=== PATIENT | male | born 1950 | race Caucasian/White ===

== ENCOUNTER 2025-02-26 14:57 | Outpatient (REF) | payer MEDICARE, SELFPAY ==
--- NOTE | ~2025-02-26 | XR_ITS ---
EXAMINATION: XR CHEST CLINICAL INFORMATION: chest pain, bradycardia COMPARISON: July 23, 2015 TECHNIQUE: 2 views of the chest were obtained. FINDINGS: No consolidation, pleural effusion or pneumothorax. New right-sided Port-A-Cath placed via right internal jugular vein and vein at the SVC brachiocephalic trunk junction. Cardiomediastinal silhouette size is normal. Calcified plaque thoracic aortic arch. Multilevel thoracic and upper lumbar spondylosis. Osteopenia versus osteoporosis. S-shaped curvature of the thoracic spine. XR/XR chest 2V IMPRESSION: New right-sided Port-A-Cath placement at the SVC/innominate junction without pneumothorax. Stable chest. Electronically signed by: Johnny Christy MD 02/26/2025 04:01 PM EDT
--- NOTE | 2025-02-26 15:07 | ECG_ITS ---
Test Reason : CP Blood Pressure : */* mmHG Vent. Rate : 80 BPM Atrial Rate : 80 BPM P-R Int : 254 ms QRS Dur : 106 ms QT Int : 386 ms P-R-T Axes : 31 -24 55 degrees QTcB Int : 445 ms Sinus rhythm with 1st degree A-V block with occasional Premature ventricular complexes Incomplete right bundle branch block Borderline ECG No previous ECGs available Referred By: Kb Reese Electronically Signed By: KEL CASILLAS MD
--- OUTSIDE RECORDS SUMMARY | 2025-02-26 16:03 | XMS_ITS | Patient Health Record ---
Author Organization Kb Reese III, MD Address [address] [place] [address] Care Team Providers Care Hand Trucker Name Role Phone Kb Reese Primary Care Provider [phone] Allergies Allergen (clinical drug ingredient) Drug/Non Drug [...] 0.2 - 1.3 BLD Negative Negative - Reason For Referral No Information Medications Medication SIG (Take, Route, Frequency, Duration) Notes Start Date End Date Status amLODIPine Besylate 5 MG TAKE 1 TABLET B Y MOUTH EVERY DAY Active Immunizations Vaccine Route Administration Date Status Comme nts Influenza IM Intramuscular 11/23/2012 Administered Influenza IM Intramuscular 08/16/2013 Administered Influenza IM Intramuscular 07/18/2014 Administered Influenza Unknown 08/28/2015 Administered Influenza IM Intramuscular 07/30/2016 Administered Tetanus and Diphtheria Toxoids Adsorbed IM Intramuscular 07/30/2016 Administered Hep A Unknown 07/18/2018 Administered Hepatitis B (20 and more) Unknown 04/30/2022 Administer ed PCV20 Unknown 09/06/2022 Administered COMIRNATY Pfizer-BioNTech Unknown 01/08/2022 Administer ed MMR Unknown 02/22/2023 Administered FLuzone HD PF Unknown 07/25/2023 Administered SHINGRIX Unknown 01/26/2022 Administered Hep A Unknown 02/20/2019 Administered COVID PFIZER Unknown 06/11/2021 Administered PPV 23 Unknown 02/22/2023 Administered Meningococcal (MCV4) Unknown 05/27/2022 Administered Tdap Unknown 09/06/2022 Administered COMIRNATY Pfizer-BioNTech Unknown 07/25/2023 Administer ed SHINGRIX Unknown 11/24/2021 Administered Hepatitis A (adult) Unknown 08/18/2018 Administered COVID PFIZER Unknown 07/02/2021 Administered Influenza, quad Unknown 07/25/2023 Administered Flu-IIv3 Unknown 07/10/2024 Administered Fluzone High-Dose (HD-IIV3) Unknown 06/30/2018 Administered Comirnaty Pfizer COVID-19 12+ Unknown 07/25/2023 Administered Flu-IIv3 Unknown 07/06/2019 Administered COVID Pfizer Bivalent Unknown 09/15/2022 Administered Comirnaty Pfizer COVID-19 12+ Unknown 07/10/2024 Administered Social History Tobacco Use: Social History Observation [...] Never (0 point) Points 2 Interpretation Negative Problems Problem Type SNOMED Code ICD Code Onset Dates Problem Status W/U Status Risk Notes Problem 5738833 Former smoker (Z87.891) Active confirmed He is highly motivated not to smoke. We have discussed a plan for prevention of relapse in times of stress or illness. Problem 022579035 Overweight (E66.3) Active confirmed His weight is stable and his body mass index is 28. We discussed diet and nutrition today. We made a plan to lose weight at a rate of one half of a pound per week. He had no peripheral edema today. Problem 84090218 Age-related nuclear cataract, right eye (H25.11) Active confirmed The cataract surgery was successful in his vision is much improved. Problem 213055084 Radiculopathy, lumbar region (M54.16) Active confirmed His back pain is only minimal and occasional. He is avoiding heavy lifting. Problem 135583318 Nocturia (R35.1) Active confirmed Problem 33988313 Essential hypertension (I10) Active confirmed His blood pressure is normal today. No change in his treatment is needed. I discussed ways to reduce his systolic blood pressure, regular exercise, sodium restriction and weight loss. Problem 132000652 Erectile dysfunction (N52.9) Active confirmed This problem has been addressed and has been resolved. Problem 797771871 Rosacea (L71.9) Active confirmed The rosacea is minimal at this time and does not require any additional treatment. Problem 66712551 Other and unspecified hyperlipidemia (E78.5) Active confirmed The current fasting lipid profile shows his lipids to be well controlled and low risk. Current therapy was continued without change. Problem 64185406 Colonic polyp (K63.5) Active confirmed He had a colonoscopy yesterday that is reported as normal. 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 Problem 27864461 Chronic leukopenia (D72.819) Active confirmed His white blood cell count is 4400 with a normal differential. No infections have occurred. Observation will continue. Problem History of lymphoma (639741975) History of lymphoma (Z85.79) Active confirmed He remains in clinical remission after his bone marrow transplant. Surveillance will continue at short intervals. 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 Vital Signs Heart Rate 85 /min 02/26/2025 Temperature 97.3 degrees Fahrenheit 02/26/2025 Blood pressure diastolic 85 mm Hg 02/26/2025 Height 72 in 02/26/2025 Blood pressure systolic 145 mm Hg 02/26/2025 Weight 209 lbs 02/26/2025 BMI 28.34 kg/m2 02/26/2025 Encounters Encounter Location Date Provider Diagnosis Kb Reese III, MD [address] [place] [address] [place] [address] 02/26/2025 Kb Reese Bradycardia, unspeci fied R00.1 and Chest pain R07.9 Kb Reese III, MD [address] [place] [address] [place] [address] 06/20/2024 Kb Reese Overweight E66.3 ; Radiculopathy, lumbar region M54.16 ; Other and unspecified hyperlipidemia E78.5 ; Former smoker Z87.891 and Malignant lymphoma of testis C85.99 Kb Reese III, MD [address] [place] [address] [place] [address] 10/22/2024 Kb Reese Other and unspecifie d hyperlipidemia E78.5 ; Radiculopathy, lumbar region M54.16 ; Overweight E66.3 ; Former smoker Z87.891 ; Autologous bone marrow transplantation status Z94.81 and History of lymphoma Z85.79 Kb Reese III, MD [address] [place] [address] [place] [address] 02/20/2025 Kb Reese Overweight E66.3 ; Malignant lymphoma of testis C85.99 ; Rosacea L71.9 ; Radiculopathy, lumbar region M54.16 ; Former smoker Z87.891 ; Autologous bone marrow transplantation status Z94.81 ; Chronic leukopenia D72.819 and Encounter for screening colonoscopy Z12.11 Assessments Encounter Date Diagnosis (ICD Code) Assessment Notes Treat ment Notes Treatment Clinical Notes 02/26/2025 Bradycardia, unspecified (ICD-10 - R00.1) 06/20/2024 Overweight (ICD-10 - E66.3) He is very slightly overweight. We discussed diet and nutrition. He will stabilize his weight at this level and then attempt to lose several pounds. 06/20/2024 Radiculopathy, lumba r region (ICD-10 - M54.16) His back pain is only minimal and occasional. He is avoiding heavy lifting. 10/22/2024 Radiculopathy, lumba r region (ICD-10 - M54.16) His back pain is only minimal and occasional. He is avoiding heavy lifting. 10/22/2024 Other and unspecifie d hyperlipidemia (ICD-10 - E78.5) The current fasting lipid profile shows his lipids to be well controlled and low risk. Current therapy was continued without change. 02/20/2025 Overweight (ICD-10 - E66.3) His weight [...] examination or upon review blood work. 02/26/2025 Chest pain (ICD-10 - R07.9) 06/20/2024 Other and unspecifie d hyperlipidemia (ICD-10 - E78.5) The current fasting lipid profile shows his lipids to be well controlled and low risk. Current therapy was continued without change. 10/22/2024 Overweight (ICD-10 - E66.3) He is very slightly overweight. We discussed diet and nutrition. He will stabilize his weight at this level and then attempt to lose several pounds. 02/20/2025 Rosacea (ICD-10 - L71.9) The rosacea is minimal at this time and does not require any additional treatment. 06/20/2024 Former smoker (ICD-1 0 - Z87.891) He is highly motivated not to smoke. We have discussed a plan for prevention of relapse in times of stress or illness. 10/22/2024 Former smoker (ICD-1 0 - Z87.891) He is highly motivated not to smoke. We have discussed a plan for prevention of relapse in times of stress or illness. 02/20/2025 Radiculopathy, lumba r region (ICD-10 - M54.16) His back pain is only minimal and occasional. He is avoiding heavy lifting. 06/20/2024 Malignant lymphoma o f testis (ICD-10 - C85.99) Observation will continue. There is no sign of recurrence or a new primary.. 10/22/2024 Autologous bone beba ow transplantation status (ICD-10 - Z94.81) He remains in remission at this time. 02/20/2025 Former smoker (ICD-1 0 - Z87.891) He is highly motivated not to smoke. We have discussed a plan for prevention of relapse in times of stress or illness. 10/22/2024 History of lymphoma (ICD-10 - Z85.79) He remains in clinical remission after his bone marrow transplant. Surveillance will continue at short intervals. 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 02/20/2025 Chronic leukopenia (ICD-10 - D72.819) His white blood cell count is 4400 with a normal differential. No infections have occurred. Observation will continue. 02/20/2025 Encounter for screening colonoscopy (ICD-10 - Z12.11) He is due for colonoscopy and was referred for the same. Plan Of Treatment Pending Test Test Name Order Date PROFILE, FASTING (COMPREHENSIVE METABOLI C) 06/20/2024 PROFILE, FASTING (COMPREHENSIVE METABOLI C) 02/15/2024 PROFILE, FASTING (COMPREHENSIVE METABOLI C) 09/20/2022 PROFILE, FASTING (COMPREHENSIVE METABOLI C) 02/20/2025 PROFILE, FASTING (COMPREHENSIVE METABOLI C) 07/26/2023 PROFILE, FASTING (COMPREHENSIVE METABOLI C) 10/22/2024 PROFILE, RANDOM (COMPREHENSIVE METABOLIC ) 10/07/2021 PROFILE, RANDOM (COMPREHENSIVE METABOLIC ) 04/14/2020 PROFILE, RANDOM (COMPREHENSIVE METABOLIC ) 11/01/2023 PROFILE, RANDOM (COMPREHENSIVE METABOLIC ) 06/15/2022 MAGNESIUM 09/20/2022 LIPID PANEL 07/26/2023 LIPID PANEL 09/20/2022 LDH 06/15/2022 LDH 10/22/2024 LDH 10/07/2021 LDH 04/14/2020 LDH 02/15/2024 LDH 11/01/2023 VITAMIN B12 AND FOLATE 09/20/2022 PSA, TOTAL 02/20/2025 PSA, TOTAL 06/15/2022 PSA, TOTAL 07/26/2023 PSA, TOTAL 06/20/2024 CBC w DIFF 11/01/2023 CBC w DIFF 02/20/2025 CBC w DIFF 09/20/2022 CBC w DIFF 06/15/2022 CBC w DIFF 07/26/2023 CBC w DIFF 10/07/2021 CBC w DIFF 04/14/2020 CBC w DIFF 02/15/2024 SED RATE (ESR) 11/01/2023 SED RATE (ESR) 10/22/2024 SED RATE (ESR) 09/20/2022 SED RATE (ESR) 10/07/2021 SED RATE (ESR) 04/14/2020 CT ABD & PELVIS WITH CONTRAST 05/24/2018 CT LUMBAR SPINE NO CONTRAST 03/27/2014 PETCT WHOLE BODY 10/06/2020 XR CHEST 2 VIEW PA & LAT 02/26/2025 XR HAND LT 08/16/2018 XR HAND RT 08/16/2018 XR SHOULDER RT 2 VIEWS 08/16/2018 Echocardiogram 10/06/2020 VITAMIN D 25-OH TOTAL 09/20/2022 CBC WITH AUTO DIFF 10/22/2024 CBC WITH AUTO DIFF 06/20/2024 Lipid Panel 02/20/2025 Lipid Panel 10/22/2024 Lipid Panel 06/20/2024 Lipid Panel 02/15/2024 ECG 12 lead EKG 02/26/2025 Next Appt Details Provider Name:Kb Reese, 03/04/2025 10:15:00 AM, [address] [place] [address] [place], [place], [address], Provider Name:Kb Reese, 05/24/2025 03:00:00 PM, [address] [place] [address] [place], [place], [phone], Provider Name:Kb Reese, 02/24/2026 03:30:00 PM, [address] [place] [address] [place], [place], [address], Insurance Providers Payer Name Payer Address Payer Phone Subscriber Number Group Number Insured Name Patient Relationship to Insured Coverage Start Date Coverage End Date MEDICARE NGS [address] [place] [phone] [id number] bK Morse Self - patient is the insured [facility] [address] [place], [place] [id number] Kb Morse Self - patient is the insured Medical (General) History Medical History History ICD Code colonic polyps tubular adenoma colonosco py 10/2013 gastroesophageal reflux disease (GERD) hyperlipidemia microscopic hematuria 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
--- OUTSIDE RECORDS SUMMARY | 2025-02-26 16:03 | XMS_ITS ---
Author Organization Kb Reese III, MD Address [address] [place] [address] Care Team Providers Care Automobile Body Repair Chief Name Role Phone Kb Reese Primary Care Provider Allergies Allergen (clinical drug [...] Date Provider Diagnosis Kb Reese III, MD [address] [place] [address] [address] [place], [place] [address] 02/20/2025 Kb Reese Overweight E66.3 ; Malignant [...] Months, Reason: ov review labs Provider Name:Kb Reese, 03/04/2025 10:15:00 AM, [address] [place] [address] [place], [place], [phone], Provider Name:Kb Reese, 05/24/2025 03:00:00 PM, [address] [place] [address] [place], [place], [address], Provider Name:Kb Reese, 02/24/2026 03:30:00 PM, [address] [place] [address] [place], [place], [address], Progress Notes * Kb MORSEDOB: [birth year] (74 yo M)Acc No.[id number]:02/20/2025 Progress Notes Patient:?MORIAH Kb Provider:?Kb Reese MD :1950???Age:74 Y???Sex:Male Noel e:02/20/2025 Address:[address] [id number] Subjective: * Chief Complaints: * ???Annual Exam * HPI: ???Depression Screening:?He returns for evaluation of his medical issues and 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? His only complaint was that last week she had an episode of lightheadedness when rising from sitting lasting about 10 minutes.? He thinks his pulse may have been high at that time.? Sproles during the visit today was 100 bpm.? His vital signs were otherwise stable and his oxygen saturation was 98%.? His blood work was reviewed and he is not anemic.? Repeat blood work with thyroid function tests were ordered.His back pain is reasonably minimal.He no longer smokes cigarettes.? He is trying to keep his weight in the normal range. Blood work that was done at [facility] February 11, 2025 showed glucose 123 BUN 9 creatinine 0.62 AST 57 ALTs 68 total cholesterol 208 triglycerides 1:15 HDL 80 LDL 105 ratio 2.6 white count 4.4 hematocrit 44.3 platelets 175 differential normal. ?PHQ-9?Little interest or pleasure in doing things?Not at all ?Feeling down, depressed, or hopeless?Not at all ?Trouble falling or staying asleep, or sleeping too much?Not at all ?Feeling tired or having little energy?Not at all ?Poor appetite or overeating?Not at all ?Feeling bad about yourself or that you are a failure, or have let yourself or your family down?Not at all ?Trouble concentrating on things, such as reading the newspaper or watching television?Not at all ?Moving or speaking so slowly that other people could have noticed; or the opposite, being so fidgety or restless that you have been moving around a lot more than usual?Not at all ?Thoughts that you would be better off or of hurting yourself in some way?Not at all ?Total Score?0 ???COVID-19 Screening:?Questions?Have you had any new onset fever, chills, cough, congestion, sore throat, shortness of breath, muscle aches??No ???SDOH Questions:?SDOH Questions?In the past year have you been worried about losing your housing??No ?In the past year have you or any family members you live with been unable to get any of the following when it was really needed? Check all that apply:?None ???Fall Risk Screening:?Fall History?Have you had any falls with injury in the past year??No ?Have you had two or more falls in the past year??No ?Fall Risk Assessment:?No falls in the past year * ROS:?General/Constitutional:?pain?only normal aches and pains.?Chills?denies.?Fatigue?admits.?Fever?denies.?ENT:?Decreased hearing?denies.?Respiratory:?Cough?denies.?Cardiovascular:?Chest pain with exertion?denies.?Dyspnea on exertion?denies.?Shortness of breath?denies.?Gastrointestinal:?Constipation?denies.?Decreased appetite?denies.?Diarrhea?denies.?Heartburn?denies.?Nausea?denies.?Rectal bleeding?denies.?Vomiting?denies.?Hematology:?bruising?denies.?petechiae?denies.?Swollen glands?none have been noted.?Genitourinary:?Frequent urination?once a night.?Musculoskeletal:?Muscle aches?denies.?Painful joints?denies.?Sciatica?denies.?Weakness?denies.?Skin:?Itching?denies.?Rash?denies.?Skin lesion(s)?denies.?Neurologic:?Difficulty speaking?denies.?Dizziness?denies.?Headache?denies.?Low back pain?that is chronic.?Psychiatric:?Depressed mood?denies.? * Medical History:? * Surgical History:?right radi mar orchiectomy 10/26/2010root canal 08/2020Port placement and spinal tap 10/2020No history * Hospitalization/Major Diagno stic Procedure:?No history * Family History:?Father: dece ased 76 yrs, bowel disorder, congestive heart failure.?Mother: 83 yrs, diabetes mellitus, emphysema, diagnosed with DM.?2 brother(s) , 6 sister(s) . 1 son(s) , 1 daughter(s) - healthy. .? His siblings have a history of leukemia and breast cancer. * Social History:?Tobacco Use:?Tobacco Control (Standard)?Tobacco use:?Former smoker ?How long has it been since you last smoked??Greater than 10 years ?Additional Findings: Tobacco non-user?Ex-cigarette smoker ???Drugs/Alcohol:?Drugs?Have you used drugs other than those for medical reasons in the past 12 months??No ???Drug/Alcohol:?AUDIT-C (Standard)?Did you have a drink containing alcohol in the past year??Yes ?How often did you have six or more drinks on one occasion in the past year??2 to 4 times a month (2 points) ?How many drinks did you have on a typical day when you were drinking in the past year??1 or 2 drinks (0 point) ?How often did you have a drink containing alcohol in the past year??Never (0 point) ?Points?2 ?Interpretation?Negative ???He has been to Kathy for 28 years and has a son and a daughter. He is working. He was born in [place], [place]. * Medications:?TakingamLODIPin e Besylate 5 MG Tablet TAKE 1 TABLET BY MOUTH EVERY DAY Medication List reviewed and reconciled with the patientTaking amLODIPine Besylate 5 MG Tablet TAKE 1 TABLET BY MOUTH EVERY DAY Medication List reviewed and reconciled with the patient * Allergies:?No Known Drug All ergyNo Known Food Allergyno[Allergies Verified] Objective: * Vitals:?Ht: 72, Wt:208, BMI: 28.21, BP:133/91, HR:100, Temp:98.8, Wt-k.35. Her oral office were. * ???Past Orders: Lab:URINE DIP STICK * Collection Date [...] Negative (Ref Range: Negative -) * Examination: ???General Examination: ?GENERAL APPEARANCE:?pleasant, well nourished, well developed, in no acute distress, calm and relaxed, overweight, man.?HEAD:?atraumatic, normocephalic.?EYES:?eomi, perrla, anicteric, conjugate.?EARS:?normal.?NOSE:?septum intact.?ORAL CAVITY:?normal, unremarkable, No evidence for neoplasm.?NECK/THYROID:?no jugular venous distention, no carotid bruit, thyroid normal.?LYMPH NODES:?no enlarged lymph nodes,spleen normal.?SKIN:?no suspicious lesions, anicteric.?HEART:?no clicks, gallops, murmurs, or rubs, regular rhythm, S1, S2 normal, no s3, or vascular bruits.?LUNGS:?clear to auscultation .?BREASTS:??no masses palpable bilaterally.?ABDOMEN:?bowel sounds normal, no ascites, no organomegaly, no mass, overweight.?RECTAL EXAM:?Deferred to upcoming? colonoscopy.?MUSCULOSKELETAL:?extremities unremarkable, no clubbing, cyanosis or edema.?PERIPHERAL PULSES:?normal.?NEUROLOGIC:?alert and oriented, cranial nerves 2-12 grossly intact, deep tendon reflexes 2+ symmetrical, motor strength normal upper and lower extremities, sensory exam intact.?PSYCH:?alert, oriented, speech clear, cognitive function intact, good eye contact.? Assessment: * Assessment: 1.?Malignant lymphoma of mary tis - C85.99 (Primary)???Notes :There is no sign of recurrent lymphoma on today's examination or upon review blood work.???2.?Overweight - E66.3???Notes :His weight is stable and his body mass index is 28.? We discussed diet and nutrition today.? We made a plan to lose weight at a rate of one half of a pound per week.? He had no peripheral edema today.???3.?Rosacea - L71.9???Notes :The carriecea is minimal at this time and does not require any additional treatment.???4.?Radiculopathy, lumbar region - M54.16???Notes :His back pain is only minimal and occasional. He is avoiding heavy lifting.???5.?Former smoker - Z87.891???Notes :He is highly motivated not to smoke. 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 No infections have occurred. Observation will continue.???8.?Encounter for screening colonoscopy - Z12.11???Notes :He is due for colonoscopy and was referred for the same.??? Plan: * Treatment: 2.?Overweight?LAB: PROFILE, FASTING (COMPREHENSIVE METABOLIC) ?LAB: PSA, TOTAL ?LAB: CBC w DIFF ?LAB: Lipid Panel 3.?Others? Continue amLODIPine Besylate Tablet, 5 MG, TAKE 1 TABLET BY MOUTH EVERY DAY.?? * Labs:? * ?Lab: URINE DIP STICK (C ollection Date & Time - 02/20/2025) ? Value Reference Range ?SG 1.005 1.005 - 1.025 * ?pH 6.5 5.0 - 9.0 * ?MIR Negative Negative - * ?NIT Negative Negative - * ?PRO 15 Negative - Trac e * ?GLU Negative Negative - * ?KET Negative Negative - * ?UBG 0.2 0.1 - 1.8 * ?ADITHYA Negative 0.2 - 1.3 * ?BLD Negative Negative - * Procedure Codes:?60933 URINE -NO MICRO * Preventive Medicine:? ??Counseling:?Care goal follow-up plan:?Counseling for abnormal BMI given?Yes ?Above Normal BMI Follow-up?Dietary management education, guidance, and counseling ?Smoking/Tobacco Use?Patient counseled on the dangers of tobacco use and urged to quit.?02/20/2025 * Follow Up:?3 Months (Reason: ov review labs) * Images: * Sign off status: Completed true * Provider:?Kb Reese MD Date:?04/2025 Generated for Ilana alcala/[place]/Shantellsmitting on:?02/26/2025 04:03 PM EDT History and Physical Notes * HPI (History [...]
--- OUTSIDE RECORDS SUMMARY | 2025-02-26 16:04 | XMS_ITS ---
Author Organization Kb Reese III, MD Address [address] [place] [address] Care Team Providers Care Mining And Quarrying Machinery Repairer Name Role Phone Kb Reese Primary Care Provider [phone] Allergies Allergen (clinical drug ingredient) Drug/Non Drug [...] Date Provider Diagnosis Kb Reese III, MD [address] [place] [address] [place] [address] 10/22/2024 Kb Reese Other and unspecifie d [...] months, Reason: OV, Routine checkup Provider Name:Kb Reese, 03/04/2025 10:15:00 AM, [address] [place] [address] [address], [place], [address], Provider Name:Kb Reese, 05/24/2025 03:00:00 PM, [address] [place] [address] [address], [place], [address], Provider Name:bK Freemanrne, 02/24/2026 03:30:00 PM, [address] [place] [address] [address], [place], [address], Progress Notes * Kb MORSEDOB: 3 (73 yo M)Acc No.[id number]:10/22/2024 Progress Notes Patient:?Kb MORSE Provider:?Kb Reese MD :1950???Age:73 Y???Sex:Male Noel e:10/22/2024 Address:[address] [id number] Subjective: * Chief Complaints: * ???History of Testicular lar ge cell lymphoma in remissionHistory of autologous bone marrow transplantLumbar radiculopathyHyperlipidemia * HPI: ???COVID-19 Screening:?Questions?Have you had any new onset fever, chills, cough, congestion, sore throat, shortness of breath, muscle aches??No ???:?The patient, a 73-year-old male, reported that he had a cold for a few days but did not get sick when everyone around him was getting norovirus and strep. He had a history of lymphoma, but there were no signs of it coming back. He had blood tests done the previous Tuesday at [facility]. The results showed that his [...] 78. Blood Sugar Level is 117. * ROS:?General/Constitutional:?pain?Intermittent mild low back pain, otherwise only normal aches and pains.?Chills?denies.?Fatigue?admits.?Fever?denies.?ENT:?Decreased hearing?denies.?Respiratory:?Cough?denies.?Cardiovascular:?Chest pain with exertion?denies.?Dyspnea on exertion?denies.?Shortness of breath?denies.?Gastrointestinal:?Constipation?occasional.?Decreased appetite?denies.?Diarrhea?denies.?Heartburn?denies.?Nausea?denies.?Rectal bleeding?denies.?Vomiting?denies.?Hematology:?bruising?denies.?petechiae?denies.?Swollen glands?none have been noted.?Genitourinary:?Frequent urination?once a night.?Musculoskeletal:?Muscle aches?denies.?Painful joints?denies.?Sciatica?denies.?Weakness?denies.?Skin:?Itching?denies.?Rash?denies.?Skin lesion(s)?denies.?Neurologic:?Difficulty speaking?denies.?Dizziness?denies.?Headache?denies.?Low back pain?denies.?Psychiatric:?Depressed mood?denies.? * Medical History:? * Surgical History:?right [...] and breast cancer. * Social History:?Tobacco Use:?Tobacco Use/Smoking?Patient is a?former smoker ?How long has it been since you last smoked??> 10 years ?Additional Findings: Tobacco Non-User?Ex-cigarette smoker ???He has been to Kathy for 28 years and has a son and a daughter. He is working. He was born in [place], [place]. * Medications:?TakingamLODIPin e Besylate 5 MG Tablet TAKE 1 TABLET BY MOUTH EVERY DAY Medication List reviewed and reconciled with the patientTaking amLODIPine Besylate 5 MG Tablet TAKE 1 TABLET BY MOUTH EVERY DAY Medication List reviewed and reconciled with the patient * Allergies:?No Known Drug All ergyno[Allergies Verified] Objective: * Vitals:?Ht: 72, Wt:206, BMI: 27.94, BP:134/78, HR:96, Temp:97.9, Wt-k.44. * Examination: ???General Examination: ?GENERAL APPEARANCE:?pleasant, well nourished, well developed, in no acute distress, calm and relaxed, overweight, man.?HEAD:?atraumatic, normocephalic.?EYES:?eomi, perrla, anicteric, conjugate.?EARS:?normal.?NOSE:?septum intact.?ORAL CAVITY:?normal, unremarkable.?NECK/THYROID:?no jugular venous distention, no carotid bruit, thyroid normal.?LYMPH NODES:?no enlarged lymph nodes,spleen normal.?SKIN:?no suspicious lesions, anicteric.?HEART:?no clicks, gallops, murmurs, or rubs, regular rhythm, S1, S2 normal, no s3, or vascular bruits.?LUNGS:?clear to auscultation .?BREASTS:??no masses palpable bilaterally.?ABDOMEN:?bowel sounds normal, no ascites, no organomegaly, no mass, overweight.?RECTAL EXAM:?not examined.?MUSCULOSKELETAL:?extremities unremarkable, no clubbing, cyanosis or edema.?PERIPHERAL PULSES:?normal.?NEUROLOGIC:?alert and oriented, cranial nerves 2-12 grossly intact, deep tendon reflexes 2+ symmetrical, motor strength normal upper and lower extremities, sensory exam intact.?PSYCH:?alert, oriented.? : ???{'Chest Examination':'A bit of congestion', 'Back Examination': 'Disc problem, no trouble', 'Testicle Examination': 'No problem', 'Lung Examination': 'No problem', 'Mouth Examination': 'No trouble', 'Ear Examination': 'Little red, nothing serious', 'Heart Examination': 'Heart rate slow, rhythm regular, no murmurs', 'Skin Examination': 'Bit of rosacea'}. ???Genitourinary - Male: ?TESTICLES:?Remaining testis normal.? Assessment: * Assessment: 1.?Other and unspecified hyp erlipidemia - E78.5 (Primary)???Notes :The current fasting lipid profile shows his lipids to be well controlled and low risk. Current therapy was continued without change.???2.?Radiculopathy, lumbar region - M54.16???Notes :His back pain is only minimal and occasional. He is avoiding heavy lifting.???3.?Overweight - E66.3???Notes :He is very slightly overweight. We discussed diet and nutrition. He will stabilize his weight at this level and then attempt to lose several pounds.???4.?Former smoker - Z87.891???Notes :He is highly motivated not to smoke. 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 Surveillance will continue at short intervals.??? Plan: * Treatment: 2.?Overweight?LAB: PROFILE, FASTING (COMPREHENSIVE METABOLIC) ?LAB: LDH ?LAB: SED RATE (ESR) ?LAB: CBC WITH AUTO DIFF ?LAB: Lipid Panel 3.?Others? Continue amLODIPine Besylate Tablet, 5 MG, TAKE 1 TABLET BY MOUTH EVERY DAY.?? * Procedure Codes:? * Preventive Medicine:? ??Counseling:?Care goal follow-up plan:?Counseling for abnormal BMI given?Yes ?Above Normal BMI Follow-up?Dietary management education, guidance, and counseling, Dietary needs education ?Smoking/Tobacco Use?Patient counseled on the dangers of tobacco use and urged to quit.?10/22/2024 * Follow Up:?As Scheduled, In five months (Reason: OV, Routine checkup) * Images: * Sign off status: Completed true * Provider:?Kb Reese MD Date:?03/2025 Generated for Ilana alcala/Madison/Adriánitting on:?02/26/2025 04:03 PM EDT History and Physical [...]
--- OUTSIDE RECORDS SUMMARY | 2025-02-26 16:04 | XMS_ITS | Clinical Summary ---
Author Organization [facility] Address [address] [place] [address] Care Team Providers Care Die Equipment Operator Name Role Phone Kb Reese MD Primary Care Provider [phone] Allergies No known active allergies Medications Medication Sig Dispensed Refills Start Date End Date Status lidocaine-prilocaine (EMLA) cream Apply topically as needed. To [facility] area 1 hour prior to access 30 g 1 11/19/2020 Active amLODIPine (NORVASC) tablet 5 mg Take 1 tablet (5 mg total) by mouth daily. 30 tablet 2 03/26/2021 Active Active Problems Problem Noted Date Diagnosed Date Abnormal PET scan of lung 07/02/2022 H/O autologous stem cell transplant 08/20/2021 Hypomagnesemia 08/20/2021 Autologous bone marrow transplantation status Pancytopenia 03/05/2021 Muscle cramp 03/05/2021 Essential hypertension 11/04/2020 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 10/28/2020 Gastroesophageal reflux disease 12/03/2010 Overview: Overview: Gastroesophageal reflux disease Hypercholesterolemia 12/03/2010 Overview: Overview: Hypercholesterolemia Hemorrhoids 12/03/2010 Overview: Overview: Hemorrhoids Malignant lymphoma 12/03/2010 Overview: Overview: Malignant lymphoma (clinical); Testicular DLBCL Social History Tobacco Use Types Packs/Day Years Used Date Smoking Tobacco: Former Cigarettes Smokeless Tobacco: Never Alcohol Use Standard Drinks/Week Comments Yes 30 (1 standard drink = 0.6 oz pu re alcohol) Sex and Gender Information Value Date Recorded Sex Assigned at Male 03/12/2022 1:15 PM EDT Gender Identity Not on file Sexual Orientation Not on file Job Start Date Occupation Industry Not on file Not on file Not on file Last Filed Vital Signs Vital Sign Reading Time Taken Comments Blood Pressure 160/80 05/30/2024 3:25 PM EDT Pulse 96 05/30/2024 3:25 PM EDT Temperature 36.6 ??C (97.9 ??F) 05/30/2024 3:25 PM ED T Respiratory Rate 18 03/18/2022 9:21 AM EDT Oxygen Saturation 98% 05/30/2024 3:25 PM EDT Inhaled Oxygen Concentration - - Weight 93.6 kg (206 lb 6.4 oz) 05/30/2024 3:25 P M EDT Height 188 cm (6' 2 ) 11/09/2023 3:53 PM EST Body Mass Index 26.5 11/09/2023 3:53 PM EST Plan of Treatment Health Maintenance Due Date Last Done Comments Hepatitis C Screening 1950 COVID-19 Vaccine (#1) 1957 Pneumococcal Vaccine (1 of 2 - PCV) 1958 Depression Screening 1964 Preventative Health Evaluation 1970 DTap / Tdap / Td (1 - Tdap) 1971 Shingrix-Zoster Vaccine (1 of 2) 1971 Colon Cancer Screening (Colonoscopy) 1997 RSV Adult > 60+ Yrs or Pregn ant (1 - Risk 60-74 years 1-dose series) 2012 Fall Risk Assessment 2017 Influenza Vaccine (#1) 2024 Hepatitis B Vaccines Aged Out No long er eligible based on patient's age to complete this topic RSV Ped < 20 months Aged Out No longe r eligible based on patient's age to complete this topic Care Teams Die Equipment Operator Relationship Specialty Start Date End Date Kb Reese MD [address] [address] [place] [address] PCP - General Oncology 11/04/20
--- OUTSIDE RECORDS SUMMARY | 2025-02-26 16:04 | XMS_ITS ---
Author Organization Kb Reese III, MD Address [address] [place] [address] Care Team Providers Care Needle Grader Name Role Phone Kb Reese Primary Care Provider Allergies Allergen (clinical drug ingredient) Drug/Non Drug Allergy documented on EMR Reaction Allergy Type Onset Date Status No Known Drug Allergy Unknown Drug Allergy Active No Known Food Allergy Unknown Drug Allergy Active REASON FOR VISIT Dizziness x 1 week Medications Medication SIG (Take, Route, Frequency, Duration) [...] Date Provider Diagnosis Kb Reese III, MD [address] [place] [address] [place] [address] 02/26/2025 Kb Reese Bradycardia, unspecified R00.1 and Chest pain R07.9 Assessments Encounter Date Diagnosis (ICD Code) Assessment Notes Treat ment Notes Treatment Clinical Notes 02/26/2025 Bradycardia, unspecified (ICD-10 - R00.1) 02/26/2025 Chest pain (ICD-10 - R07.9) Plan Of Treatment Medication Medication Name Sig Start Date Stop Date Notes amLODIPine Besylate 5 MG TAKE 1 TABLET BY MOUTH EVERY DAY Pending Test Test Name Order Date XR CHEST 2 VIEW PA & LAT 02/26/2025 ECG 12 lead EKG 02/26/2025 Next Appt Details Follow Up: 1 Week, Reason: O V Provider Name:Kb Reese, 03/04/2025 10:15:00 AM, [address] [place] [address] [address], [place], [address], Provider Name:Kb Reese, 05/24/2025 03:00:00 PM, [address] [place] [address] [address], [place], [address], Provider Name:Kb Reese, 02/24/2026 03:30:00 PM, [address] [place] [address] [address], [place], [address], Progress Notes * Kb MORSEDOB: 3 (74 yo M)Acc No.[id number]:02/26/2025 Progress Notes Patient:?MORIAHKb YUSUF Provider:?Kb Reese MD :1950???Age:74 Y???Sex:Male Noel e:02/26/2025 Address:[address] [place] Subjective: * Chief Complaints: * ???1. Dizziness x 1 week. 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 ?Questions?Have you had any new onset fever, chills, cough, congestion, sore throat, shortness of breath, muscle aches??No * ROS:?General/Constitutional:?pain?only normal aches and pains.?Chills?denies.?Fatigue?admits.?Fever?denies.?ENT:?Decreased hearing?denies.?Respiratory:?Cough?denies.?Cardiovascular:?Chest pain with exertion?denies.?Dyspnea on exertion?denies.?Shortness of breath?denies.?Gastrointestinal:?Constipation?denies.?Decreased appetite?denies.?Diarrhea?denies.?Heartburn?denies.?Nausea?denies.?Rectal bleeding?denies.?Vomiting?denies.?Hematology:?bruising?denies.?petechiae?denies.?Swollen glands?none have been noted.?Genitourinary:?Frequent urination?denies.?Musculoskeletal:?Muscle aches?denies.?Painful joints?denies.?Sciatica?denies.?Weakness?denies.?Skin:?Itching?denies.?Rash?denies.?Skin lesion(s)?denies.?Neurologic:?Difficulty speaking?denies.?Dizziness?denies.?Headache?denies.?Low back pain?denies.?Psychiatric:?Depressed mood?denies.? 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 * Surgical History:?right radi mar orchiectomy 10/26/2010, root canal 08/2020, Port placement and spinal tap 10/2020, No history . * Hospitalization/Major Diagno stic Procedure:?No history . * Family History:?Father: dece ased 76 yrs, [...] 10 years ?Additional Findings: Tobacco non-user?Ex-cigarette smoker ???He has been to Kathy for 28 years and has a son and a daughter. He is working. He was born in [place], [place]. * Medications:?Taking amLODIPi ne Besylate 5 MG Tablet TAKE 1 TABLET BY MOUTH EVERY DAY , Medication List reviewed and reconciled with the patient * Allergies:?No Known Drug All ergy, No Known Food Allergy. Objective: * Vitals:?Ht: 72, Wt:209, BMI: 28.34, BP:145/85, HR:85, Temp:97.3, Wt-k.8. * ???Past Orders: Lab:URINE DIP STICK * [...] developed, in no acute distress, calm and relaxed.?HEAD:?atraumatic, normocephalic.?EYES:?eomi, perrla, anicteric, conjugate.?EARS:?normal.?NOSE:?septum intact.?ORAL CAVITY:?normal, unremarkable.?NECK/THYROID:?no jugular venous distention, no carotid bruit, thyroid normal.?LYMPH NODES:?no enlarged lymph nodes,spleen normal.?SKIN:?no suspicious lesions, anicteric.?HEART:?no clicks, gallops, murmurs, or rubs, regular rhythm, S1, S2 normal, no s3, or vascular bruits.?LUNGS:?clear to auscultation .?BREASTS:??no masses palpable bilaterally.?ABDOMEN:?bowel sounds normal, no ascites, no organomegaly, no mass.?RECTAL EXAM:?not examined.?MUSCULOSKELETAL:?extremities unremarkable, no clubbing, cyanosis or edema.?PERIPHERAL PULSES:?normal.?NEUROLOGIC:?alert and oriented, cranial nerves 2-12 grossly intact, deep tendon reflexes 2+ symmetrical, motor strength normal upper and lower extremities, sensory exam intact.?PSYCH:?alert, oriented.? Assessment: * Assessment: 1.?Bradycardia, unspecified - R00.1???2.?Chest pain - R07.9??? Plan: * Treatment: 2.?Chest pain?Imaging: XR CHEST 2 VIEW PA & LAT ?Imaging: ECG 12 lead EKG 3.?Others? Continue amLODIPine Besylate Tablet, 5 MG, TAKE 1 TABLET BY MOUTH EVERY DAY.?? * Follow Up:?1 Week (Reason: O V) * Images: * The named appointment provid er may or may not be the originator of this progress note, and it is not deemed complete until electronically signed by the appointment provider. Sign off status: Pending * Provider:?Kb Reese MD Date:?02/14 Generated for Ilana alcala/Madison/eTransmitting on:?02/26/2025 04:03 PM EDT History and Physical Notes * HPI (History of Present Illness) Category Sub-Category Detail Notes COVID-19 Screening Questions Have you had any new onset fever, chills, cough, congestion, sore throat, shortness of breath, muscle aches?: No Examination Category Sub-Category Detail Notes General Examination GENERAL APPEARANCE: pleasant , well nourished, well developed, in no acute distress, calm and relaxed HEAD: atraumatic, normocep halic EYES: eomi, perrla, [...]
== END 2025-02-26 14:58 | disposition home or self-care (01) ==
LOC: HO.XRAY 14:57
PROVIDERS: PCP Internal Medicine Medical Oncology; Visit Provider Internal Medicine Medical Oncology
DX: R07.9 Chest pain, unspecified (principal); R00.1 Bradycardia, unspecified
CPT/HCPCS: 71046; 93005

== ENCOUNTER → 2025-02-26 15:07 | Outpatient (BNV) | payer MEDICARE, SELFPAY | PROVIDERS: PCP Internal Medicine Medical Oncology; Visit Provider Internal Medicine Cardiovascular Disease | DX: I44.0 Atrioventricular block, first degree (principal); I49.3 Ventricular premature depolarization; I45.10 Unspecified right bundle-branch block | CPT/HCPCS: 93010 ==

== ENCOUNTER → 2025-02-26 15:15 | Outpatient (BNV) | payer MEDICARE, SELFPAY | PROVIDERS: PCP Internal Medicine Medical Oncology; Visit Provider Radiology Diagnostic Radiology | DX: R07.9 Chest pain, unspecified (principal); R00.1 Bradycardia, unspecified | CPT/HCPCS: 71046 ==

== ENCOUNTER → 2025-03-05 08:17 | Outpatient (REF) | payer MEDICARE, SELFPAY ==
--- OUTSIDE RECORDS SUMMARY | 2025-03-05 08:24 | XMS_ITS ---
Author Organization Kb Reese III, MD Address [address] [place] [address] Care Team Providers Care Welder Fitter Gas Name Role Phone Kb Reese Primary Care [...] Date Provider Diagnosis Kb Reese III, MD [address] [place] [address] [address] [place], [place] [address] 02/20/2025 Kb Reese Overweight E66.3 ; Malignant [...] Reason: ov review labs Provider Name:Kb Reese, 03/15/2025 01:15:00 PM, [address] [place] [address] [address], [place], [address], Provider Name:Kb Reese, 05/24/2025 03:00:00 PM, [address] [place] [address] [address], [place], [address], Provider Name:Kb Reese, 02/24/2026 03:30:00 PM, [address] [place] [address] [address], [place], [address], Progress Notes * Kb MORSEDOB: 3 (74 yo M)Acc No.[id number]:02/20/2025 Progress Notes Patient:?MORIAH Kb Provider:?Kb Reese MD [...] range. Blood work that was done at [facility] February 11, 2025 showed glucose 123 BUN [...] He is working. He was born in [place], [place]. * Medications:?TakingamLODIPin e Besylate 5 MG [...] * ?BLD Negative Negative - * Procedure Codes:?23859 URINE -NO MICRO * Preventive Medicine:? ??Counseling:?Care goal follow-up plan:?Counseling for abnormal BMI given?Yes ?Above Normal BMI Follow-up?Dietary management education, guidance, and counseling ?Smoking/Tobacco Use?Patient counseled on the dangers of tobacco use and urged to quit.?02/20/2025 * Follow Up:?3 Months (Reason: ov review labs) * Images: * Sign off status: Completed true * Provider:?Kb Reese MD Date:?04/2025 Generated for Ilana alcala/Madison/Shantellsmitting on:?03/05/2025 08:24 AM EDT History and Physical Notes * HPI [...]
--- OUTSIDE RECORDS SUMMARY | 2025-03-05 08:24 | XMS_ITS ---
Author Organization Kb Reese III, MD Address [address] [facility] [place] [address] Care Team Providers Care Materials And Corrosion Engineer Name Role Phone Kb Reese Primary Care [...] Additional Findings: Tobacco non-user Ex-cigaret te smoker Problems Problem Type SNOMED Code ICD Code Onset Dates Problem Status W/U Status Risk Notes Problem [id number] Premature ventricular contractions (I49.3) Active confirmed EKG documents premature ventricular contractions in normal sinus rhythm. I have ordered a Holter monitor. He may need an echocardiogram . Vital Signs Temperature 97.3 degrees Fahrenheit 02/27/20 25 Blood pressure systolic 145 mm Hg 02/27/20 25 Blood pressure diastolic 85 mm Hg 025 Heart Rate 85 /min 02/26/2025 Height 72 in 02/26/2025 Weight 209 lbs 02/26/2025 BMI 28.34 kg/m2 02/26/2025 Encounters Encounter Location Date Provider Diagnosis Kb Reese III, MD [address] [place] [address] [address] [place], [place] [address] 02/26/2025 Kb Reese Premature ventricula r contractions [...] Week, Reason: O V Provider Name:Kb Reese, 03/15/2025 01:15:00 PM, [address] [place] [address] [place], [place], [address], Provider Name:Kb Reese, 05/24/2025 03:00:00 PM, [address] [place] [address] [place], [place], [phone], Provider Name:Kb Reese, 02/24/2026 03:30:00 PM, [address] [place] [address] [place], [place], [phone], Progress Notes * Kb MORSEDOB: [birth year] (74 yo M)Acc No.[id number]:02/26/2025 Progress Notes Patient:?Kb MORSE Provider:?Kb Reese MD :1950???Age:74 Y???Sex:Male Noel e:02/26/2025 Address:[address] [place] [address] [id number] Subjective: * Chief Complaints: * ???Episode of dizzinessPrema ture ventricular contractionsLymphoma in remissionHistory of bone marrow transplant * HPI: ???COVID-19 Screening:?On February 22, 2025.? He was [place] and he began to feel dizzy.? He felt down into short of breath for a moment.? He put his head down and then recovered. He was not aware of any bradycardia or tachycardia.? He did not have any chest pain.? This lasted about 2 min.? He comes in today to be reevaluated.? On cardiac examination he was having premature heartbeats consistent with PVCs as was compensatory positives.? He was sent for an electrocardiogram that showed normal sinus rhythm with PVCs.? Comprehensive blood work was ordered.? He appeared to be stable today.? A Holter monitor was scheduled. ?Questions?Have you had any new onset fever, [...] He is working. He was born in [place], [place]. * Medications:?TakingamLODIPin e Besylate 5 MG Tablet TAKE 1 TABLET BY MOUTH EVERY DAY Medication List reviewed and reconciled with the patientTaking amLODIPine Besylate 5 MG Tablet TAKE 1 TABLET BY MOUTH EVERY DAY Medication List reviewed and reconciled with the patient * Allergies:?No Known Drug All ergyNo Known Food Allergyno[Allergies Verified] Objective: * Vitals:?Ht: 72, Wt:209, BMI: 28.34, [...] normocephalic.?EYES:?eomi, perrla, anicteric, conjugate.?EARS:?normal.?NOSE:?septum intact.?ORAL CAVITY:?normal, unremarkable, Without any sign of recurrent lymphoma.?NECK/THYROID:?no jugular venous distention, no carotid bruit, thyroid normal.?LYMPH NODES:?no enlarged lymph nodes,spleen normal.?SKIN:?no suspicious lesions, anicteric.?HEART:?no clicks, gallops, murmurs, or rubs, regular rhythm [...] sensory exam intact.?PSYCH:?alert, oriented.? Assessment: * Assessment: 1.?Premature ventricular con tractions - I49.3 (Primary)???Notes :EKG documents premature ventricular contractions in normal sinus rhythm.? I have ordered a Holter monitor.? He may need an echocardiogram.???2.?Other and unspecified hyperlipidemia - E78.5???Notes :The current fasting lipid profile shows his lipids to be well controlled and low risk. Current therapy was continued without change.???3.?Radiculopathy, lumbar region - M54.16???Notes :His back pain is only minimal and occasional. He is avoiding heavy lifting.???4.?Overweight - E66.3???Notes :His weight is stable and his body mass index is 28. We discussed diet and nutrition today. We made a plan to lose weight at a rate of one half of a pound per week. He had no peripheral edema today.???5.?Former smoker - Z87.891???Notes :He is highly motivated not to smoke. 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 No infections have occurred. Observation will continue.??? Plan: * Treatment: * Imaging:? * ?Imaging: XR CHEST 2 VIE W PA & LAT ?Imaging: ECG 12 lead EK G ?Imaging: ECG 7 day chahal er monitor * Procedure Codes:? * Preventive Medicine:? ??Counseling:?Care goal follow-up plan:?Counseling for abnormal BMI given?Yes ?Above Normal BMI Follow-up?Dietary management education, guidance, and counseling ?Smoking/Tobacco Use?Patient counseled on the dangers of tobacco use and urged to quit.?02/26/2025 * Follow Up:?1 Week (Reason: O V) * Images: * Sign off status: Completed true * Provider:?Kb Reese MD Date:?02/14 Generated for Printi ng/Fazoëg/eTransmitting on:?03/05/2025 08:24 AM EDT History and Physical [...]
--- OUTSIDE RECORDS SUMMARY | 2025-03-05 08:24 | XMS_ITS | Encounter Summary ---
Author Organization [facility] [address] Care Team Providers Care Director Of Recruiting Name Role Phone Kb Reese MD Primary Care Provider [phone] Encounter Details Date Type Department Care Team (Late st Contact Info) Description 10/15/2024 Lab Requisition [facility] - Main Lab [address] [facility] [place] [address] Kb Reese MD [address] [facility] [address] [place] [id number] Overweight; Male erectile dysfunction, unspecified Social History Tobacco Use Types Packs/Day Years [...] AM EST documented as of this encounter Plan of Treatment Upcoming Encounters Date Type Department Care Team (Late Contact Info) Description 04/08/2025 8:[address] [facility] In[facility] [address] [phone] 12/30/2025 10:30 AM EDT Office Visit [facility] Hematology Oncology [address] [place] [phone] Татьяна Becker MD [address] [place] [address] documented as of this encounter Procedures Procedure Name Priority Date/Time Associated Diagnosis Comments PROSTATE SPECIFIC ANTIGEN SCREEN Routine 10/15/2024 8:15 AM EST Overweight Male erectile dysfunction, unspecified SST - GOLD Routine 10/15/2024 8:15 AM EST Overweight Male erectile dysfunction, unspecified LIPID PANEL WITH REFLEX TO DIRECT LDL Routine 10/15/2024 8:15 AM EST Overweight Male erectile dysfunction, unspecified CBC WITH AUTO DIFFERENTIAL Routine 10/15/2024 8:15 AM EST Overweight Male erectile dysfunction, unspecified CBC AND DIFFERENTIAL Routine 10/15/2024 8:15 AM EST Overweight Male erectile dysfunction, unspecified COMPREHENSIVE METABOLIC PANEL Routine 10/15/2024 8:15 AM EST Overweight Male erectile dysfunction, unspecified documented in this encounter Results * SST tube (10/15/2024 8:15 AM EST) Extra Tube Hold for add-ons. 10/15/2024 10:01 AM EST [facility] Comment:Auto resulted. Blood Venous blood specimen / Unknown 10/15/2024 8:15 AM EST 10/15/2024 8:37 AM EST us Kb Reese MD LAB BLOOD ORDERABLES Final Res ult [facility] [address] [place] [address], * (ABNORMAL) CBC auto differential (10/15/2024 8:15 AM EST) WBC 5.1 4.8 - 10.8 K/[facility] LAB HEMETOLOGY METHOD 10/15/2024 8:48 AM [facility] RBC 4.60 4.50 - 5.50 M/mcL LAB HEMETOLOGY METHOD 10/15/2024 8:48 AM [facility] Hemoglobin 14.6 13.5 - 17.5 g/dL LAB HEMETOLOGY METHOD 10/15/2024 8:48 AM [facility] Hematocrit 43.2 42.0 - 54.0 % LAB HEMETOLOGY METHOD 10/15/2024 8:48 AM [facility] MCV 94.1 79.0 - 98.0 FL LAB HEMETOLOGY METHOD 10/15/2024 8:48 AM [facility] MCH 31.8 27.0 - 32.0 pcg LAB HEMETOLOGY METHOD 10/15/2024 8:48 AM [facility] MCHC 33.8 32.0 - 37.0 g/dL LAB HEMETOLOGY METHOD 10/15/2024 8:48 AM [facility] RDW 13.2 11.0 - 15.0 % LAB HEMETOLOGY METHOD 10/15/2024 8:48 AM [facility] Platelets 216 130 - 400 K/mcL LAB HEMETOLOGY METHOD 10/15/2024 8:48 AM [facility] MPV 9.4 7.0 - 11.0 FL LAB HEMETOLOGY METHOD 10/15/2024 8:48 AM [facility] NRBC 0.0 <1.0 % LAB HEMETOLOGY METHOD 10/15/2024 8:48 AM [facility] NRBC Absolute 0.00 <0.10 K/mcL LAB HEMETOLOGY METHOD 10/15/2024 8:48 AM [facility] Neutrophils Relative 63.4 % LAB HEMETOLOGY METHOD 10/15/2024 8:48 AM [facility] Lymphocytes Relative 18.3 % LAB HEMETOLOGY METHOD 10/15/2024 8:48 AM [facility] Monocytes Relative 12.8 % LAB HEMETOLOGY METHOD 10/15/2024 8:48 AM [facility] Eosinophils Relative 3.9 % LAB HEMETOLOGY METHOD 10/15/2024 8:48 AM [facility] Basophils Relative 1.0 % LAB HEMETOLOGY METHOD 10/15/2024 8:48 AM [facility] Immature Granulocytes Relative 0.6 % LAB HEMETOLOGY METHOD 10/15/2024 8:48 AM [facility] Neutrophils Absolute 3.21 1.50 - 7.00 K/mcL LAB HEMETOLOGY METHOD 10/15/2024 8:48 AM [facility] Lymphocytes Absolute 0.93(L) 1.00 - 5.00 K/mcL LAB HEMETOLOGY METHOD 10/15/2024 8:48 AM [facility] Monocytes Absolute 0.65 0.20 - 1.00 K/mcL LAB HEMETOLOGY METHOD 10/15/2024 8:48 AM [facility] Eosinophils Absolute 0.20 0.00 - 0.50 K/mcL LAB HEMETOLOGY METHOD 10/15/2024 8:48 AM [facility] Basophils Absolute 0.05 0.00 - 0.20 K/mcL LAB HEMETOLOGY METHOD 10/15/2024 8:48 AM [facility] Immature Granulocytes Absolute 0.03 0.00 - 0.03 K/mcL LAB HEMETOLOGY METHOD 10/15/2024 8:48 AM [facility] Blood Venous blood specimen / Unknown 10/15/2024 8:15 AM EST 10/15/2024 8:37 AM EST us Kb Reese MD LAB BLOOD ORDERABLES Final Res ult [facility] [address] [place] [address], * (ABNORMAL) Lipid panel with reflex to direct LDL (10/15/2024 8:15 AM EST) Cholesterol 199 0 - 200 mg/dL LAB CHEMISTRY METHOD 10/15/2024 9:05 AM [facility] Triglycerides 148 0 - 150 mg/dL LAB CHEMISTRY METHOD 10/15/2024 9:05 AM [facility] HDL 65 >=40 mg/dL LAB CHEMISTRY METHOD 10/15/2024 9:05 AM [facility] LDL Calculated 104(H) 0 - 100 mg/dL LAB CHEMISTRY METHOD 10/15/2024 9:05 AM [facility] VLDL Cholesterol Donte 29.6 mg/dL LAB CHEMISTRY METHOD 10/15/2024 9:05 AM [facility] Non HDL Chol. (LDL+VLDL) 134 <145 mg/dL LAB CHEMISTRY METHOD 10/15/2024 9:05 AM [facility] Chol/HDL Ratio 3.1 0.0 - 4.4 LAB CHEMISTRY METHOD 10/15/2024 9:05 AM [facility] Blood Venous blood specimen / Unknown 10/15/2024 8:15 AM EST 10/15/2024 8:37 AM EST Kb Reese MD LAB BLOOD ORDERABLES Final Res ult [facility] [address] [place] [address], [place] [phone] * Prostate specific antigen screen (10/15/2024 8:15 AM EST) PSA 0.91 0.00 - 4.00 ng/mL LAB CHEMISTRY METHOD 10/15/2024 11:20 AM [facility] Blood Venous blood specimen / Unknown 10/15/2024 8:15 AM EST 10/15/2024 8:37 AM EST [facility] - 10/15/2024 11:20 AM EST The Siemens Advia Centaur Chemiluminescent Immunoassay is used. Results obtained with different assay methods or kits cannot be used interchangeably. Results cannot be interpreted as absolute evidence of the presence or absence of malignant disease. us Kb Reese MD LAB BLOOD ORDERABLES Final Res ult [facility] [address] [place] [address], [place] [phone] * (ABNORMAL) Comprehensive metabolic panel (10/15/2024 8:15 AM EST) Sodium 139 133 - 145 mmol/L LAB CHEMISTRY METHOD 10/15/2024 9:05 AM [facility] Potassium 4.2 3.5 - 5.5 mmol/L LAB CHEMISTRY METHOD 10/15/2024 9:05 AM [facility] Chloride 106 96 - 110 mmol/L LAB CHEMISTRY METHOD 10/15/2024 9:05 AM [facility] CO2 26 21 - 32 mmol/L LAB CHEMISTRY METHOD 10/15/2024 9:05 AM [facility] Anion Gap 7 3 - 11 LAB CHEMISTRY METHOD 10/15/2024 9:05 AM [facility] Glucose 117(H) 70 - 100 mg/dL LAB CHEMISTRY METHOD 10/15/2024 9:05 AM [facility] BUN 10 5 - 25 mg/dL LAB CHEMISTRY METHOD 10/15/2024 9:05 AM [facility] Creatinine 0.72 0.70 - 1.30 mg/dL LAB CHEMISTRY METHOD 10/15/2024 9:05 AM [facility] eGFR 98 >=60 mL/min/1. 73m2 LAB CHEMISTRY METHOD 10/15/2024 9:05 AM [facility] Comment:Calculation based on the??Chronic Kidney Disease Epidemiology Collaboration (CKD-EPI) equation refit??without adjustment for race. BUN/Creatinine Ratio 13.9 LAB CHEMISTRY METHOD 10/15/2024 9:05 AM [facility] Calcium 9.0 8.5 - 10.5 mg/dL LAB CHEMISTRY METHOD 10/15/2024 9:05 AM [facility] AST (SGOT) 44(H) 10 - 42 unit/L LAB CHEMISTRY METHOD 10/15/2024 9:05 AM [facility] ALT (SGPT) 45 10 - 60 unit/L LAB CHEMISTRY METHOD 10/15/2024 9:05 AM [facility] Alkaline Phosphatase 110 42 - 121 unit/L LAB CHEMISTRY METHOD 10/15/2024 9:05 AM [facility] Total Protein 6.5 6.0 - 8.0 g/dL LAB CHEMISTRY METHOD 10/15/2024 9:05 AM [facility] Albumin 3.8 3.2 - 5.0 g/dL LAB CHEMISTRY METHOD 10/15/2024 9:05 AM [facility] Total Bilirubin 0.4 0.0 - 1.4 mg/dL LAB CHEMISTRY METHOD 10/15/2024 9:05 AM [facility] Blood Venous blood specimen / Unknown 10/15/2024 8:15 AM EST 10/15/2024 8:37 AM EST us Kb Reese MD LAB BLOOD ORDERABLES Final Res ult [facility] [address] [place] [address], documented in this encounter Visit Diagnoses Diagnosis Overweight Male erectile dysfunction, unspecified documented in this encounter Care Teams Director Of Recruiting Relationship Specialty Start Date End Date Reese, Kb E, MD [address] [address] PCP - General Oncology 10/15/24 documented as of this encounter
--- OUTSIDE RECORDS SUMMARY | 2025-03-05 08:24 | XMS_ITS | Encounter Summary ---
Author Organization [facility] [place] [address] Care Team Providers Care Health Information Provider Name Role Phone Kb Reese MD Primary Care Provider [phone] Encounter Details Date Type Department Care Team [...] Care Team (Late st Contact Info) Description 04/08/2025 8:00 AM EDT Appointment [facility] [address] [phone] 12/30/2025 10:30 AM EDT Office Visit [facility] Hematology Oncology [address] [place] [phone] Татьяна Becker MD [address] [place] [phone] documented as of this encounter Visit Diagnoses Not on filedocumented in this encounter Care Teams Health Information Provider Relationship Specialty Start Date End Date Kb Reese MD PCP - General Oncology 11/04/20 10/14/24 documented as of this encounter
--- OUTSIDE RECORDS SUMMARY | 2025-03-05 08:25 | XMS_ITS | Clinical Summary ---
Author Organization [facility] Address [address] [place] [phone] Phone Care Team Providers Care Elevator Builder Name Role Phone Kb Reese MD Primary Care Provider [phone] Allergies No known active allergies Medications amLODIPine (NORVASC) 5 mg tablet Take 1 tablet (5 mg total) by mouth daily. 1 Active lidocaine-prilo igor (EMLA) 2.5-2.5 % cream Apply topically as needed. 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 Infusion Center [address] [phone] Татьяна Casraez MD Pancytopenia ([facility] V24, [facility] V28) (Primary Dx); 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; Muscle cramp; Malignant lymphoma ([facility] V24, [facility] V28); Hypomagnesemia; Hypercholesterolemia; Hemorrhoids; Gastroesophageal reflux disease without esophagitis; Essential hypertension; Autologous bone marrow transplantation status ([facility] V24, [facility] V28); Abnormal PET scan of lung Discharge Disposition: Home or Self Care 12/28/2024 10:15 AM EDT Office Visit 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 (Primary Dx); Pancytopenia ([facility] V24, [facility] V28); Autologous bone marrow transplantation status ([facility] V24, [facility] V28); Gastroesophageal reflux disease without esophagitis from Last 3 Months Surgical History Surgery Date Site/Laterality Comments 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 Social History Tobacco Use Types Packs/Day Years [...] Orientation Straight 11/26/2024 7: 56 AM EST Obstetrics History Last Filed Vital Signs Vital Sign Reading Time Taken Comments Blood Pressure 148/79 12/28/2024 10:27 AM EDT Pulse 90 12/28/2024 10:27 AM EDT Temperature 36.6 ??C (97.8 ??F) 12/28/2024 10:27 AM E DT Respiratory Rate - - Oxygen Saturation 97% 12/28/2024 10:27 AM EDT Inhaled Oxygen Concentration - - Weight 93.4 kg (206 lb) 12/28/2024 10:27 AM EDT Height 188 cm (6' 2 ) 12/28/2024 10:27 AM EDT Body Mass Index 26.45 12/28/2024 10:27 AM EDT Plan of Treatment Upcoming Encounters Date Type Department Care Team (Late st Contact Info) Description 04/08/2025 8:00 AM EDT Appointment [facility] Infusion [facility] [address] [phone] 12/30/2025 10:30 AM EDT Office Visit [facility] Hematology Oncology [address] [place] [phone] Татьяна Becker MD [address] [place] [phone] Health Maintenance Due Date Last Done Comments RSV Immunization Adult Patients (1 - Risk 60-74 years 1-dose series) 2012 Abdominal Aortic Aneurysm (AAA) Screen 11/22/2019 Colorectal Cancer Screening: Colonoscopy 11/22/2019 Depression Screening 11/22/2019 Falls Risk Assessment 11/22/2019 Hepatitis C Screening 11/22/2019 Medicare Annual Wellness Visit 11/22/2019 Social Influencers of Health Screening 11/22/2019 COVID-19 Vaccine (7 - Pfizer risk 2023- season) 2025 07/10/2024, 07/25/2023, 09/15/2022, Additional history exists Hypertension/CHF/CAD Annual BMP Blood Test 02/11/2026 02/11/2025, 10/15/2024, 03/17/2021, Additional history exists Cholesterol Screening (Lipid Panel) 02/11/2030 02/11/2025, 10/15/2024 DTaP,Tdap,and Td Vaccines (3 - Td or Tdap) 09/06/2032 09/06/2022, 07/30/2016 Hepatitis A Vaccines Aged Out 02/20/2019, 02/20/2019, 08/18/2018, Additional history exists No longer eligible based on patient's age to complete this topic Zoster Vaccines Completed 01/26/2022, 11/24/2021 Hepatitis B Vaccines Completed 04/30/2022, 02/20/2019, 08/18/2018, Additional history exists Meningococcal ACWY Vaccine Aged Out 05/27/2022 N o longer eligible based on patient's age to complete this topic MMR Vaccines Aged Out 02/22/2023 No longer eligi ble based on patient's age to complete this topic Pneumococcal Vaccine: 50+ Years Completed 02/22/2023, 09/06/2022 Influenza Vaccine Completed 07/10/2024, , 07/14/2022, Additional history exists HIB Vaccines Aged Out No longer eligi ble based on patient's age to complete this topic HPV Vaccines Aged Out No longer eligi ble based on patient's age to complete this topic IPV Vaccines Aged Out No longer eligi ble based on patient's age to complete this topic Meningococcal B Vaccine Aged Out No l onger eligible based on patient's age to complete this topic RSV Immunization Patients Under 20 months Aged Out No longer eligible based on patient's age to complete this topic Varicella Vaccines Aged Out No longer eligible based on patient's age to complete this topic Procedures Procedure Name Priority Date/Time Associated Diagnosis Comments SEDIMENTATION RATE Routine 02/11/2025 8: 13 AM EDT 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 LIPID PANEL WITH REFLEX TO DIRECT LDL Routine 02/11/2025 8:10 AM EDT 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 Pancytopenia (CMS/HCC V24, [facility] V28) Muscle cramp Malignant lymphoma (CMS/HCC V24, [facility]/H[facility] V28) Hypomagnesemia Hypercholesterolemia Hemorrhoids Gastroesophageal reflux disease without esophagitis Essential hypertension Autologous bone marrow transplantation status (CMS/HCC V24, [facility]/H[facility] V28) Abnormal PET scan of lung CBC WITH AUTO DIFFERENTIAL Routine 02/11/2025 8:10 AM EDT 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 CBC AND DIFFERENTIAL Routine 02/11/2025 8:10 AM EDT 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 COMPREHENSIVE METABOLIC PANEL Routine 02/11/2025 8:10 AM EDT 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 LACTATE DEHYDROGENASE Routine 02/11/2025 8:10 AM EDT 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 IMMUNOGLOBULIN IGG Routine 02/11/2025 8: 10 AM EDT 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 from Last 3 Months Results * Sedimentation rate (02/11/2025 8:13 AM EDT) Sed Rate 10 0 - 20 mm/hr LAB HEMETOLOGY METHOD 02/11/2025 9:12 AM EDT [facility] Blood Venous blood specimen / Unknown Venipuncture / Unknown 02/11/2025 8:13 AM EDT 02/11/2025 9:07 AM EDT us Subramgracie Becker MD LAB BLOOD ORDERABLE S Final Result [facility] [address] [place] [address], [place] [phone] * (ABNORMAL) Lipid panel with reflex to direct LDL (02/11/2025 8:10 AM EDT) Cholesterol 208(H) 0 - 200 mg/dL LAB CHEMISTRY METHOD 02/11/2025 10:26 AM EDT [facility] Triglycerides 115 0 - 150 mg/dL LAB CHEMISTRY METHOD 02/11/2025 10:26 AM EDT [facility] HDL 80 >=40 mg/dL LAB CHEMISTRY METHOD 02/11/2025 10:26 AM EDT [facility] LDL Calculated 105(H) 0 - 100 mg/dL LAB CHEMISTRY METHOD 02/11/2025 10:26 AM EDT [facility] VLDL Cholesterol Donte 23 mg/dL LAB CHEMISTRY METHOD 02/11/2025 10:26 AM EDT [facility] Non HDL Chol. (LDL+VLDL) 128 <145 mg/dL LAB CHEMISTRY METHOD 02/11/2025 10:26 AM EDT [facility] Chol/HDL Ratio 2.6 0.0 - 4.4 LAB CHEMISTRY METHOD 02/11/2025 10:26 AM T [facility] Blood Blood sample taken from central line / Unknown Existing Catheter / Unknown 02/11/2025 8:10 AM EDT 02/11/2025 9:07 AM EDT Татьяна Becker MD LAB BLOOD ORDERABLE S Final Result [facility] [address] [place] [address], * (ABNORMAL) CBC auto differential (02/11/2025 8:10 AM EDT) WBC 4.4(L) 4.8 - 10.8 K/mcL LAB HEMETOLOGY METHOD 02/11/2025 9:13 AM EDT [facility] RBC 4.70 4.50 - 5.50 M/mcL LAB HEMETOLOGY METHOD 02/11/2025 9:13 AM EDT [facility] Hemoglobin 15.1 13.5 - 17.5 g/dL LAB [facility]OLOG[facility] Hematocrit 44.3 42.0 - 54.0 % LAB HEMETOLOGY METHOD 02/11/2025 9:13 AM [facility] MCV 94.1 79.0 - 98.0 FL LAB HEMETOLOGY METHOD 02/11/2025 9:13 AM [facility] MCH 32.1(H) 27.0 - 32.0 pcg LAB HEMETOLOGY METHOD 02/11/2025 9:13 AM [facility] MCHC 34.1 32.0 - 37.0 g/dL LAB HEMETOLOGY METHOD 02/11/2025 9:13 AM [facility] RDW 13.7 11.0 - 15.0 % LAB HEMETOLOGY METHOD 02/11/2025 9:13 AM [facility] Platelets 175 130 - 400 K/mcL LAB HEMETOLOGY METHOD 02/11/2025 9:13 AM [facility] MPV 9.7 7.0 - 11.0 FL LAB HEMETOLOGY METHOD 02/11/2025 9:13 AM [facility] NRBC 0.0 <1.0 % LAB HEMETOLOGY METHOD 02/11/2025 9:13 AM [facility] NRBC Absolute 0.00 <0.10 K/mcL LAB HEMETOLOGY METHOD 02/11/2025 9:13 AM [facility] Neutrophils Relative 65.9 % LAB HEMETOLOGY METHOD 02/11/2025 9:13 AM [facility] Lymphocytes Relative 19.1 % LAB HEMETOLOGY METHOD 02/11/2025 9:13 AM [facility] Monocytes Relative 10.7 % LAB HEMETOLOGY METHOD 02/11/2025 9:13 AM [facility] Eosinophils Relative 3.4 % LAB HEMETOLOGY METHOD 02/11/2025 9:13 AM EDT [facility] Basophils Relative 0.7 % LAB HEMETOLOGY METHOD 02/11/2025 9:13 AM EDT [facility] Immature Granulocytes Relative 0.2 % LAB HEMETOLOGY METHOD 02/11/2025 9:13 AM EDT [facility] Neutrophils Absolute 2.89 1.50 - 7.00 K/mcL LAB HEMETOLOGY METHOD 02/11/2025 9:13 AM EDT [facility] Lymphocytes Absolute 0.84(L) 1.00 - 5.00 K/mcL LAB HEMETOLOGY METHOD 02/11/2025 9:13 AM EDT [facility] Monocytes Absolute 0.47 0.20 - 1.00 K/mcL LAB HEMETOLOGY METHOD 02/11/2025 9:13 AM EDT [facility] Eosinophils Absolute 0.15 0.00 - 0.50 K/mcL LAB HEMETOLOGY METHOD 02/11/2025 9:13 AM EDT [facility] Basophils Absolute 0.03 0.00 - 0.20 K/mcL LAB HEMETOLOGY METHOD 02/11/2025 9:13 AM EDT [facility] Immature Granulocytes Absolute 0.01 0.00 - 0.03 K/mcL LAB HEMETOLOGY METHOD 02/11/2025 9:13 AM EDT [facility] Blood Blood sample taken from central line / Unknown Existing Catheter / Unknown 02/11/2025 8:10 AM EDT 02/11/2025 9:07 AM EDT us Татьяна Becker MD LAB BLOOD ORDERABLE S Final Result [facility] [address] [place] [address], * (ABNORMAL) Lactate dehydrogenase (02/11/2025 8:10 AM EDT) LDH 108(L) 120 - 246 unit/L LAB CHEMISTRY METHOD 02/11/2025 10:26 AM EDT [facility] Blood Blood sample taken from central line / Unknown Existing Catheter / Unknown 02/11/2025 8:10 AM EDT 02/11/2025 9:07 AM EDT us Татьяна Becker MD LAB BLOOD ORDERABLE S Final Result Performing Organization Address [facility]/ZIP Co de Phone Number [facility] [address] [place] [address], [place] [phone] * (ABNORMAL) Immunoglobulin IgG (02/11/2025 8:10 AM EDT) Total IgG 501(L) 549 - 1,584 mg/dL LAB CHEMISTRY METHOD 02/11/2025 10:26 AM EDT [facility] Blood Blood sample taken from central line / Unknown Existing Catheter / Unknown 02/11/2025 8:10 AM EDT 02/11/2025 9:07 AM EDT us Татьяна Becker MD LAB BLOOD ORDERABLE S Final Result Performing Organization Address [facility] de Phone Number [facility] [address] [place] [address], [place] [phone] * (ABNORMAL) Comprehensive metabolic panel (02/11/2025 8:10 AM EDT) Sodium 137 133 - 145 mmol/L LAB CHEMISTRY METHOD 02/11/2025 10:26 AM EDT [facility] Potassium 3.9 3.5 - 5.5 mmol/L LAB CHEMISTRY METHOD 02/11/2025 10:26 AM EDT [facility] Chloride 106 96 - 110 mmol/L LAB [facility]STR[facility] CO2 23 21 - 32 mmol/L LAB CHEMISTRY METHOD 02/11/2025 10:26 AM [facility] Anion Gap 8 3 - 11 LAB CHEMISTRY METHOD 02/11/2025 10:26 AM [facility] Glucose 123(H) 70 - 100 mg/dL LAB CHEMISTRY METHOD 02/11/2025 10:26 AM [facility] BUN 9 5 - 25 mg/dL LAB CHEMISTRY METHOD 02/11/2025 10:26 AM [facility] Creatinine 0.62(L) 0.70 - 1.30 mg/dL LAB CHEMISTRY METHOD 02/11/2025 10:26 AM [facility] eGFR 102 >=60 mL/min/1. 73m2 LAB CHEMISTRY METHOD 02/11/2025 10:26 AM [facility] Comment:Calculation based on the??Chronic Kidney Disease Epidemiology Collaboration (CKD-EPI) equation refit??without adjustment for race. BUN/Creatinine Ratio 14.5 LAB CHEMISTRY METHOD 02/11/2025 10:26 AM [facility] Calcium 9.2 8.5 - 10.5 mg/dL LAB CHEMISTRY METHOD 02/11/2025 10:26 AM [facility] AST (SGOT) 57(H) 10 - 42 unit/L LAB CHEMISTRY METHOD 02/11/2025 10:26 AM [facility] ALT (SGPT) 68(H) 10 - 60 unit/L LAB CHEMISTRY METHOD 02/11/2025 10:26 AM [facility] Alkaline Phosphatase 145(H) 42 - 121 unit/L LAB CHEMISTRY METHOD 02/11/2025 10:26 AM [facility] Total Protein 6.9 6.0 - 8.0 g/dL LAB CHEMISTRY METHOD 02/11/2025 10:26 AM [facility] Albumin 4.0 3.2 - 5.0 g/dL LAB CHEMISTRY METHOD 02/11/2025 10:26 AM EDT [facility] Total Bilirubin 0.7 0.0 - 1.4 mg/dL LAB CHEMISTRY METHOD 02/11/2025 10:26 AM EDT [facility] Blood Blood sample taken from central line / Unknown Existing Catheter / Unknown 02/11/2025 8:10 AM EDT 02/11/2025 9:07 AM EDT us Subramgracie Becker MD LAB BLOOD ORDERABLE S Final Result [facility] ([facility] [address] [place] [address], from Last 3 Months Insurance [facility] MEDICARE MEDICARE Care Teams Elevator Builder Relationship Specialty Start Date End Date Kb Reese MD [address] [address] [place] [phone] PCP - General Oncology 10/15/24
--- OUTSIDE RECORDS SUMMARY | 2025-03-05 08:25 | XMS_ITS | Clinical Summary ---
Author Organization [facility] Address [address] [place] [address] Care Team Providers Care Ethanol Maintenance Mechanic Name Role Phone Kb Reese MD Primary Care Provider [phone] Allergies No known active allergies Medications Medication Sig Dispensed Refills Start Date End Date Status lidocaine-prilocaine (EMLA) cream Apply topically as needed. To [facility] 1 hour prior to access [...] age to complete this topic Care Teams Ethanol Maintenance Mechanic Relationship Specialty Start Date End Date Kb Reese MD [address] [address] [place] [phone] PCP - General Oncology 11/04/20
--- OUTSIDE RECORDS SUMMARY | 2025-03-05 08:25 | XMS_ITS ---
Author Organization Kb Reese III, MD Address [address] [place] [place] [address] Care Team Providers Care Fabric Designer Name Role Phone Kb Reese Primary Care Provider [phone] Allergies Allergen (clinical drug ingredient) Drug/Non Drug [...] Provider Diagnosis Kb Reese III, MD [address] [place] [address] [place] [phone] 03/04/2025 Kb Reese Plan Of Treatment Medication Medication Name Sig Start Date Stop Date Notes amLODIPine Besylate 5 MG TAKE 1 TABLET BY MOUTH EVERY DAY Next Appt Details Provider Name:Kb Reese, 03/15/2025 01:15:00 PM, [address] [place] [address] [place], [phone], Provider Name:Kb Reese, 05/24/2025 03:00:00 PM, [address] [place] [address] [place], [phone], Provider Name:Kb Reese, 02/24/2026 03:30:00 PM, [address] [facility] [place], [place], [phone], Progress Notes * MORIAH, KbDOB: [birth year] (74 yo M)Acc No.[id number]:03/04/2025 Progress Notes Patient:?Kb MORSE Provider:?Kb Reese MD :1950???Age:74 Y???Sex:Male Noel e:03/04/2025 Address[address] [phone] Subjective: * Chief Complaints: * ???1. Follow up. * HPI: ???COVID-19 Screening:?Questions?Have you had any [...] He is working. He was born in [place], [place]. * Medications:?Taking amLODIPi ne Besylate 5 MG Tablet TAKE 1 TABLET BY MOUTH EVERY DAY , Medication List reviewed and reconciled with the patient * Allergies:?No Known Drug All ergy, No Known Food Allergy. Objective: * Vitals:? * Examination: ???General Examination: ?GENERAL APPEARANCE:?pleasant, well [...] lower extremities, sensory exam intact.?PSYCH:?alert, oriented.? Assessment: Plan: * Treatment: * Images: * The named appointment provid er may or may not be the originator of this progress note, and it is not deemed complete until electronically signed by the appointment provider. Sign off status: Pending * Provider:?Kb Reese MD Date:?05/1 06/2025 Generated for Ilana alcala/[place]/eTbarbiesmitting on:?03/05/2025 08:24 AM EDT History and Physical [...]
--- OUTSIDE RECORDS SUMMARY | 2025-03-05 08:25 | XMS_ITS | Patient Health Record ---
Author Organization Kb Reese III, MD Address [address] [place] [address] Care Team Providers Care Line Fixer Name Role Phone Kb Reese Primary Care [...] 0.2 - 1.3 BLD Negative Negative - XR chest 2V (Not yet reviewe d by provider) Interpretation: Performing Lab: Notes/Report: [address] [place] [address] XRay Report Signed Patient: Kb Li MR#: [id number] 87 : 1950 Acct:[id number] Age/Sex: 74 / M ADM Date: 02/26/25 Loc: HO.XRAY Attending Dr: Kb Reese MD Ordering Physician: Kb Reese MD Date of Service: 02/26/25 Procedure(s): XR chest 2V Accession Number(s): [id number] cc: Kb Reese MD EXAMINATION: XR CHEST CLINICAL INFORMATION: chest pain, bradycardia COMPARISON: July 23, 2015 TECHNIQUE: 2 views of the chest were obtained. FINDINGS: No consolidation, pleural effusion or pneumothorax. New right-sided Port-A-Cath placed via right internal jugular vein and vein at the SVC brachiocephalic trunk junction. Cardiomediastinal silhouette size is normal. Calcified plaque thoracic aortic arch. Multilevel thoracic and upper lumbar spondylosis. Osteopenia versus osteoporosis. S-shaped curvature of the thoracic spine. XR/XR chest 2V IMPRESSION: New right-sided Port-A-Cath placement at the SVC/innominate junction without pneumothorax. Stable chest. Electronically signed by: Johnny Christy MD 02/26/2025 04:01 PM EDT RP Dictated By: Johnny Alaniz MD Signed By: <Electronically signed by Johnny Fisher MD in OV> 02/26/25 1601 DD/ 1515 TD/TT: 02/26/25 1528 Contact Center Agent: [place] [id number] XRay Report Signed Patient: Blaise Li MR#: [id number] 87 : 1950 Acct:[id number] Age/Sex: 74 / M ADM Date: 02/26/25 Loc: HO.XRAY Attending Dr: Kb Reese MD Ordering Physician: Kb Reese MD Date of Service: 02/26/25 Procedure(s): XR chest 2V Accession Number(s): [id number] cc: Kb Reese MD EXAMINATION: XR CHEST CLINICAL INFORMATION: chest pain, bradycardia COMPARISON: July 23, 2015 TECHNIQUE: 2 views of the chest were obtained. FINDINGS: No consolidation, pl eural effusion or pneumothorax. New right-sided Port -A-Cath placed via right internal jugular vein and vein at the SVC brac hiocephalic trunk junction. Cardiomediastinal si lhouette size is normal. Calcified plaque thoracic aortic arch. Multile ml thoracic and upper lumbar spondylosis. Osteopenia versus os teoporosis. S-shaped curvature of the thoracic spine. X R/XR chest 2V IMPRESSION: New right-sided Port -A-Cath placement at the SVC/innominate junction without pneumothorax . Stable chest. Electronically david d by: Johnny Christy MD 02/26/2025 04:01 PM EDT Dictated By: Johnny Carmona MD Signed By: <Electron ically signed by Johnny Fisher MD in OV> 02/26/25 1601 DD/ 1515 TD/TT: 02/26/25 1528 Contact Center Agent: Reason For Referral No Information Medications Medication [...] Problem Status W/U Status Risk Notes Problem 7432181 Former smoker (Z87.891) Active confirmed He is highly motivated not to smoke. We have discussed a plan for prevention of relapse in times of stress or illness. Problem 102128493 Overweight (E66.3) Active confirmed His weight is stable and his body mass index is 28. We discussed diet and nutrition today. We made a plan to lose weight at a rate of one half of a pound per week. He had no peripheral edema today. Problem 33048559 Age-related nuclear cataract, right eye (H25.11) Active confirmed The cataract surgery was successful in his vision is much improved. Problem 729295050 Radiculopathy, lumbar region (M54.16) Active confirmed His back pain is only minimal and occasional. He is avoiding heavy lifting. Problem 871492721 Nocturia (R35.1) Active confirmed Problem 29448297 Essential hypertension (I10) Active confirmed His blood pressure is normal today. No change in his treatment is needed. I discussed ways to reduce his systolic blood pressure, regular exercise, sodium restriction and weight loss. Problem 704913267 Erectile dysfunction (N52.9) Active confirmed This problem has been addressed and has been resolved. Problem 658679487 Rosacea (L71.9) Active confirmed The rosacea is minimal at this time and does not require any additional treatment. Problem 79834669 Other and unspecified hyperlipidemia (E78.5) Active confirmed The current fasting lipid profile shows his lipids to be well controlled and low risk. Current therapy was continued without change. Problem 30244426 Colonic polyp (K63.5) Active confirmed He had a colonoscopy yesterday that is reported as normal. 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 Problem 18901369 Chronic leukopenia (D72.819) Active confirmed His white blood cell count is 4400 with a normal differential. No infections have occurred. Observation will continue. Problem History of lymphoma (047391491) History of lymphoma (Z85.79) Active confirmed He remains in clinical remission after his bone marrow transplant. Surveillance will continue at short intervals. 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 Problem 022972289 Premature ventricular contractions (I49.3) Active confirmed EKG documents premature ventricular contractions in normal sinus rhythm. I have ordered a Holter monitor. He may need an echocardiogra m. Vital Signs Heart Rate 85 /min 02/26/2025 Temperature 97.3 degrees Fahrenheit 02/26/2025 Blood pressure diastolic 85 mm Hg 02/26/2025 Height 72 in 02/26/2025 Blood pressure systolic 145 mm Hg 02/26/2025 Weight 209 lbs 02/26/2025 BMI 28.34 kg/m2 02/26/2025 Encounters Encounter Location Date Provider Diagnosis Kb Reese III, MD [address] [place] [address] [place] [address] 06/20/2024 Kb Reese Overweight E66.3 ; Radiculopathy, lumbar region M54.16 ; Other and unspecified hyperlipidemia E78.5 ; Former smoker Z87.891 and Malignant lymphoma of testis C85.99 Kb Reese III, MD [address] [place] [address] [place] [address] 10/22/2024 Kb Reese Other and unspecifie d hyperlipidemia E78.5 ; Radiculopathy, lumbar region M54.16 ; Overweight E66.3 ; Former smoker Z87.891 ; Autologous bone marrow transplantation status Z94.81 and History of lymphoma Z85.79 Kb Reese III, MD [address] [place] [address] [place] [address] 02/20/2025 Kb Reese Overweight E66.3 ; Malignant lymphoma of testis C85.99 ; Rosacea L71.9 ; Radiculopathy, lumbar region M54.16 ; Former smoker Z87.891 ; Autologous bone marrow transplantation status Z94.81 ; Chronic leukopenia D72.819 and Encounter for screening colonoscopy Z12.11 Kb Reese III, MD [address] [place] [address] [address] [place] [address] 02/26/2025 Kb Reese Premature ventricula r contractions [...] examination or upon review blood work. 02/26/2025 Other and unspecifie d hyperlipidemia (ICD-10 - E78.5) The current fasting lipid profile shows his lipids to be well controlled and low risk. Current therapy was continued without change. 02/26/2025 Premature ventricula r contractions (ICD-10 - I49.3) EKG documents premature ventricular contractions in normal sinus rhythm. I have ordered a Holter monitor. He may need an echocardiogram. 06/20/2024 Other and unspecifie d hyperlipidemia (ICD-10 [...] and does not require any additional treatment. 02/26/2025 Radiculopathy, lumba r region (ICD-10 - M54.16) His back pain is only minimal and occasional. He is avoiding heavy lifting. 06/20/2024 Former smoker (ICD-1 0 - Z87.891) [...] week. He had no peripheral edema today. 06/20/2024 Malignant lymphoma o f testis (ICD-10 [...] in times of stress or illness. 02/26/2025 Former smoker (ICD-1 0 - Z87.891) [...] remains in remission at this time. 02/26/2025 Malignant lymphoma o f testis (ICD-10 - C85.99) There is no sign of recurrent lymphoma on today's examination or upon review blood work. 02/20/2025 Chronic leukopenia (ICD-10 - D72.819) His white blood cell count is 4400 with a normal differential. No infections have occurred. Observation will continue. 02/26/2025 Autologous bone beba ow transplantation status (ICD-10 - Z94.81) He remains in remission at this time. 02/20/2025 Encounter for screening colonoscopy (ICD-10 - Z12.11) He is due for colonoscopy and was referred for the same. 02/26/2025 Chronic leukopenia (ICD-10 - D72.819) His white blood cell count is 4400 with a normal differential. No infections have occurred. Observation will continue. Plan Of Treatment Pending Test Test Name Order Date PROFILE, FASTING (COMPREHENSIVE METABOLI C) 06/20/2024 PROFILE, FASTING (COMPREHENSIVE METABOLI C) 02/15/2024 PROFILE, FASTING (COMPREHENSIVE METABOLI C) 09/20/2022 PROFILE, FASTING (COMPREHENSIVE METABOLI C) 02/20/2025 PROFILE, FASTING (COMPREHENSIVE METABOLI C) 10/22/2024 PROFILE, FASTING (COMPREHENSIVE METABOLI C) 07/26/2023 PROFILE, RANDOM (COMPREHENSIVE METABOLIC ) 10/07/2021 PROFILE, RANDOM (COMPREHENSIVE METABOLIC ) 04/14/2020 PROFILE, RANDOM (COMPREHENSIVE METABOLIC ) 11/01/2023 PROFILE, RANDOM (COMPREHENSIVE METABOLIC ) 06/15/2022 MAGNESIUM 09/20/2022 LIPID PANEL 07/26/2023 LIPID PANEL 09/20/2022 LDH 10/22/2024 LDH 10/07/2021 LDH 04/14/2020 LDH 02/15/2024 LDH 11/01/2023 LDH 06/15/2022 VITAMIN B12 AND FOLATE 09/20/2022 PSA, TOTAL 06/15/2022 PSA, TOTAL 07/26/2023 PSA, TOTAL 06/20/2024 PSA, TOTAL 02/20/2025 CBC w DIFF 02/20/2025 CBC w DIFF 09/20/2022 CBC w DIFF 06/15/2022 CBC w DIFF 10/07/2021 CBC w DIFF 07/26/2023 CBC w DIFF 04/14/2020 CBC w DIFF 02/15/2024 CBC w DIFF 11/01/2023 SED RATE (ESR) 11/01/2023 SED RATE (ESR) [...] Panel 02/15/2024 ECG 12 lead EKG 02/26/2025 XR chest 2V 02/26/2025 ECG 7 day holter monitor 02/26/2025 Next Appt Details Provider Name:Kb Reese, 03/15/2025 01:15:00 PM, [address] [place] [address] [address], [address], [place], [address], Provider Name:Kb Freemanrne, 05/24/2025 03:00:00 PM, [address] [place] [address] [address], [place], [address], Provider Name:Kb Reese, 02/24/2026 03:30:00 PM, [address] [place] [address] [address], [place], [address], Insurance Providers Payer Name Payer Address Payer Phone Subscriber Number Group Number Insured Name Patient Relationship to Insured Coverage Start Date Coverage End Date MEDICARE NGS [address] [place] [phone] [id number] Kb Li Self - patient is the insured [facility] [address] [place], [place] [id number] [phone] [id number] Garcia Kb Self - patient is the insured Medical [...]
== END ==
LOC: HO.CARD 08:17
PROVIDERS: PCP Internal Medicine Medical Oncology; Visit Provider Internal Medicine Medical Oncology
DX: R07.9 Chest pain, unspecified (principal); R00.1 Bradycardia, unspecified
CPT/HCPCS: 93242

== ENCOUNTER → 2025-03-05 08:30 | Outpatient (BNV) | payer MEDICARE, SELFPAY | PROVIDERS: PCP Internal Medicine Medical Oncology; Visit Provider Internal Medicine | DX: I47.10 Supraventricular tachycardia, unspecified (principal) | CPT/HCPCS: 93244 ==

== ENCOUNTER → 2025-09-04 10:35 | Outpatient (REF) | payer MEDICARE, SELFPAY ==
--- OUTSIDE RECORDS SUMMARY | 2024-06-20 11:00 | XMS_ITS ---
Author Organization Kb Reese III, MD Address [address] [place] [address] Care Team Providers Care Rn Palliative Care Name Role Phone Dr. Kb Reese III Primary Care Provider [phone] Allergies Allergen (clinical drug ingredient) Drug/Non Drug Allergy documented on EMR Reaction Allergy Type Onset Date Status No Known Drug Allergy Unknown Drug Allergy Active REASON FOR VISIT Hyperlipidemia, Lumbar radiculopathy, History of lymphoma of testis, Hypertension, Chronic leukopenia, History of autologous bone marrow transplant Medications Medication SIG (Take, Route, Frequency, Duration) Notes Start Date End Date Status amLODIPine Besylate 5 MG TAKE 1 TABLET B Y MOUTH EVERY DAY Active Social History Tobacco Use: Social History Observation Description Date Details (start date - stop date) Former Smoker NA - NA Sex Assigned At : Social History Observation Description Sex Assigned At Male Tobacco Use/Smoking Question Answer Notes Patient is a former smoker How long has it been since you last smoked? > 10 years Additional Findings: Tobacco Non-User Ex-cigaret te smoker Vital Signs Temperature 97.9 degrees Fahrenheit 06/20/20 24 Blood pressure systolic 138 mm Hg 06/20/20 24 Blood pressure diastolic 82 mm Hg 024 Heart Rate 87 /min 06/20/2024 Height 72 in 06/20/2024 Weight 207 lbs 06/20/2024 BMI 28.07 kg/m2 06/20/2024 Encounters Encounter Location Date Provider Diagnosis Kb Reese III, MD [address] [place] [address] [place] [address] 06/20/2024 Kb Reese Overweight E66.3 ; Radiculopathy, lumbar region M54.16 ; Other and unspecified hyperlipidemia E78.5 ; Former smoker Z87.891 and 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 We discussed diet and nutrition. He will stabilize his weight at this level and then attempt to lose several pounds. 06/20/2024 Radiculopathy, lumba r region (ICD-10 - M54.16) His back pain is only minimal and occasional. He is avoiding heavy lifting. 06/20/2024 Other and unspecifie d hyperlipidemia (ICD-10 - E78.5) The current fasting lipid profile shows his lipids to be well controlled and low risk. Current therapy was continued without change. 06/20/2024 Former smoker (ICD-1 0 - Z87.891) He is highly motivated not to smoke. We have discussed a plan for prevention of relapse in times of stress or illness. 06/20/2024 Malignant lymphoma o f testis (ICD-10 - C85.99) Observation will continue. There is no sign of recurrence or a new primary.. Plan Of Treatment Medication Medication Name Sig Start Date Stop Date Notes amLODIPine Besylate 5 MG TAKE 1 TABLET BY MOUTH EVERY DAY Pending Test Test Name Order Date PROFILE, FASTING (COMPREHENSIVE METABOLI C) 06/20/2024 PSA, TOTAL 06/20/2024 CBC WITH AUTO DIFF 06/20/2024 Lipid Panel 06/20/2024 Next Appt Details Follow Up: 4 Months, Reason: OV Provider Name:Kb Reese , 09/09/2025 10:45:00 AM, [address] [place] [address] [address], [place], [phone], Provider Name:Kb Reese , 02/24/2026 03:30:00 PM, [address] [place] [address] [place], [address], Progress Notes * Kb MORSEDOB: 3 (73 yo M)Acc No.[id number]:06/20/2024 Progress Notes Patient: Kb Jeffery Provider: Vaishali Reese MD :1950 A ge:73 Y S ex:Male Date:06/20/2024 Address:[address] [place], [id number] Subjective: * Chief Complaints: * H yperlipidemiaLumbar radiculopathyHistory of lymphoma of testisHypertensionChronic leukopeniaHistory of autologous bone marrow transplant * HPI: C OVID-19 Screening: Hereturns for medical management. He remains in remission from the lymphoma. The remaining testicle was unremarkable. He says he feels well and his back is pain-free. He is going to retire 5 months from now. Examination including the oral cavity showed no sign of relapse. His blood pressure is controlled. He is trying to keep his weight down. His white blood cell count remains slightly low at 4000. He has had no infections. Questions H ave you experienced fever, chills, cough, sore throat, shortness of breath, difficulty breathing, muscle aches, loss of taste or smell? N o H ave you been exposed to the virus within the last 10 days? N o H ave you travelled internationally in the last 10 days? N o H ave you been exposed to COVID-19 in the past? Y es * ROS: G eneral/Constitutional: pain P ain from the lumbar spine is minimal. C hills?denies. F atigue a dmits. F ever d enies. E NT: Decreased hearing d enies. R espiratory: Cough d enies. C ardiovascular: Chest pain with exertion d enies. D yspnea on exertion?denies. S hortness of breath d enies. G astrointestinal: Constipation o ccasional. D ecreased appetite d enies. D iarrhea d enies. H eartburn d enies. N ausea d enies. R ectal bleeding d enies. V omiting d enies. H ematology: bruising d enies. p etechiae d enies. S wollen glands n one have been noted. G enitourinary: Frequent urination o nce a night. M usculoskeletal: Muscle aches d enies. P ainful joints d enies. S ciatica d enies. W eakness d enies. S kin: Itching d enies. R senia d enies. S kin lesion(s)?denies. N eurologic: Difficulty speaking d enies. D izziness d enies.?Headache d enies. L ow back pain t hat is chronic. P sychiatric: Depressed mood d enies. * Medical History: * Surgical History: r ight radical orchiectomy 10/26/2010root canal 08/2020Port placement and spinal tap 10/2020 * Hospitalization/Major Diagno stic Procedure: D enies Past Hospitalization * Family History: F ather: 76 yrs, bowel disorder, congestive heart failure. M other: 83 yrs, diabetes mellitus, emphysema, diagnosed with DM. 2 brother(s) , 6 sister(s) . 1 son(s) , 1 daughter(s) - healthy. . His siblings have a history of leukemia and breast cancer. * Social History: T obacco Use: T obacco Use/Smoking P atdennis is a f ormer smoker H ow long has it been since you last smoked??> 10 years A dditional Findings: Tobacco Non-User E x-cigarette smoker Hali park has been to Kathy for 28 years and has a son and a daughter. He is working. He was born in [place], [place]. * Medications: T akingamLODIPine Besylate 5 MG Tablet TAKE 1 TABLET BY MOUTH EVERY DAY Medication List reviewed and reconciled with the patientTaking amLODIPine Besylate 5 MG Tablet TAKE 1 TABLET BY MOUTH EVERY DAY Medication List reviewed and reconciled with the patient * Allergies: N o Known Drug Allergyno[Allergies Verified] Objective: * Vitals: H t: 72, Wt:207, BMI:28.07, BP:138/82, HR:87, Temp:97.9, Wt-k.89. * Examination: G eneral Examination: GENERAL APPEARANCE: p leasant, well nourished, well developed, in no acute distress, calm and relaxed , overweight , man. HEAD: a traumatic, normocephalic. EYES: e eugenio, perrla, anicteric, conjugate. EARS: n ormal. NOSE: s eptum intact. ORAL CAVITY: n ormal, unremarkable, No sign of recurrent lymphoma. NECK/THYROID: n o jugular venous distention, no carotid bruit, thyroid normal. LYMPH NODES: n o enlarged lymph nodes,spleen normal. SKIN: n o suspicious lesions, anicteric. HEART: n o clicks, gallops, murmurs, or rubs, regular rhythm, S1, S2 normal, no s3, or vascular bruits. LUNGS: c lear to auscultation . BREASTS: no masses palpable bilaterally. ABDOMEN: b owel sounds normal, no ascites, no organomegaly, no mass. RECTAL EXAM: n ot examined. MUSCULOSKELETAL: e xtremities unremarkable, no clubbing, cyanosis or edema, Surgical scar over lumbar spine. PERIPHERAL PULSES: n ormal. NEUROLOGIC: a lert and oriented, cranial nerves 2-12 grossly intact, deep tendon reflexes 2+ symmetrical, motor strength normal upper and lower extremities, sensory exam intact. PSYCH: a lert, oriented. Assessment: * Assessment: 1. O verweight - E66.3, He is very slightly overweight. We discussed diet and nutrition. He will stabilize his weight at this level and then attempt to lose several pounds. 2 . R adiculopathy, lumbar region - M54.16, His back pain is only minimal and occasional. He is avoiding heavy lifting. 3 . O ther and unspecified hyperlipidemia - E78.5, The current fasting lipid profile shows his lipids to be well controlled and low risk. Current therapy was continued without change.?4. F ormer smoker - Z87.891, He is highly motivated not to smoke. We have discussed a plan for prevention of relapse in times of stress or illness. 5 . M alignant lymphoma of testis - C85.99, Observation will continue. There is no sign of recurrence or a new primary.. Plan: * Treatment: 2. O thers Continue amLODIPine Besylate Tablet, 5 MG, TAKE 1 TABLET BY MOUTH EVERY DAY. * Procedure Codes: * Preventive Medicine: Counseling: C are goal follow-up plan: Counseling for abnormal BMI given Y es Above Normal BMI Follow-up D ietary management education, guidance, and counseling S moking/Tobacco Use Patient counseled on the dangers of tobacco use and urged to quit. 0 06/20/2024 * Follow Up: 4 Months (Reason: OV) * Images: * Sign off status: Completed true * Provider: Vaishali Reese MD Date: 0 06/20/2024 Generated for Ilana alcala/Madison/[place] on: 11/04/2024 08:38 PM EST History and Physical Notes * HPI (History of Present Illness) Category Sub-Category Detail Notes COVID-19 Screening Questions Have you had any new onset fever, chills, cough, congestion, sore throat, shortness of breath, muscle aches?: No Have you been exposed to the virus withi n the last 10 days?: No Have you travelled internationally in last 10 days?: No Have you been exposed to COVID-19 in the past?: Yes Examination Category Sub-Category Detail Notes General Examination GENERAL APPEARANCE: pleasant , well nourished, well developed, in no acute distress, calm and relaxed , overweight , man HEAD: atraumatic, normocep halic EYES: eomi, perrla, anicte jackie, conjugate EARS: normal NOSE: septum intact NECK/THYROID: no jugular venous di stention, no carotid bruit, thyroid normal HEART: no clicks, gallops, murmurs, or rubs, regular rhythm, S1, S2 normal, no s3, or vascular bruits LUNGS: clear to auscultatio n ABDOMEN: bowel sounds normal, no ascites, no organomegaly, no mass NEUROLOGIC: alert and oriented, cranial nerves 2-12 grossly intact, deep tendon reflexes 2+ symmetrical, motor strength normal upper and lower extremities, sensory exam intact SKIN: no suspicious lesion s, anicteric PERIPHERAL PULSES: normal BREASTS: no masses palpable b ilaterally MUSCULOSKELETAL: extremities unremark able, no clubbing, cyanosis or edema, Surgical scar over lumbar spine LYMPH NODES: no enlarged lymph no cathi,spleen normal RECTAL EXAM: not examined PSYCH: alert, oriented ORAL CAVITY: normal, unremarkable , No sign of recurrent lymphoma
--- OUTSIDE RECORDS SUMMARY | 2024-08-08 07:05 | XMS_ITS | Encounter Summary ---
Author Organization [facility] [place] [address] Care Team Providers Care Mass Spectrometry Manager Name Role Phone Kb Reese MD Primary Care Provider [phone] Encounter Details Date Type Department Care Team (Late st Contact Info) Description 08/08/2024 8:05 AM EDT Hospital Encounter TH HISTORIC ENCOUNTERS EASTERN CONVERSION ONLY Social History Tobacco Use Types Packs/Day Years Used Date Smoking Tobacco: Former Smokeless Tobacco: Never Alcohol Use Standard Drinks/Week Comments Yes 30 (1 standard drink = 0.6 oz pu re alcohol) Sex and Gender Information Value Date Recorded Sex Assigned at Male 11/26/2024 7:56 AM EST Legal Sex Male 9:08 PM EST Gender Identity Male 11/26/2024 7:56 AM EST Sexual Orientation Straight 11/26/2024 7: 56 AM EST documented as of this encounter Last Filed Vital Signs Vital Sign Reading Time Taken Comments Blood Pressure - - Pulse - - Temperature - - Respiratory Rate - - Oxygen Saturation - - Inhaled Oxygen Concentration - - Weight 93.6 kg (206 lb 6.4 oz) 05/30/2024 3:25 P M EDT Height 188 cm (6' 2 ) 11/09/2023 3:53 PM EST Body Mass Index 26.5 11/09/2023 3:53 PM EST documented in this encounter Progress Notes * Historical, Notes Results - 08/08/2024 8:00 AM EDT Pt arrived today for port flush. Port accessed without difficulty. Port flushed and deaccessed per protocol. Next appts provided/reviewed. Stable at D/C. documented in this encounter Plan of Treatment Upcoming Encounters Date Type Department Care Team (Late st Contact Info) Description 12/30/2025 10:30 AM EDT Office Visit [facility] Hematology Oncology [address] [place] [phone] Fabricio-Татьяна Carlin MD [address] [place] [phone] documented as of this encounter Visit Diagnoses Not on filedocumented in this encounter Care Teams Mass Spectrometry Manager Relationship Specialty Start Date End Date Kb Reese MD PCP - General Oncology 11/04/20 10/14/24 documented as of this encounter
--- OUTSIDE RECORDS SUMMARY | 2024-10-22 10:30 | XMS_ITS ---
Author Organization Kb Reese III, MD Address [address] [place] [address] Care Team Providers Care Stereoptic Projection Topographer Name Role Phone Dr. Kb Reese III Primary Care Provider Allergies Allergen (clinical drug ingredient) Drug/Non Drug Allergy documented on EMR Reaction Allergy Type Onset Date Status No Known Drug Allergy Unknown Drug Allergy Active REASON FOR VISIT History of Testicular large cell lymphoma in remission, History of autologous bone marrow transplant, Lumbar radiculopathy, Hyperlipidemia Medications Medication SIG (Take, Route, Frequency, Duration) [...] smoker Vital Signs Temperature 97.9 degrees Fahrenheit 10/22/19 25 Blood pressure systolic 134 mm Hg 10/22/19 25 Blood pressure diastolic 78 mm Hg 025 Heart Rate 96 /min 10/22/2024 Height 72 in 10/22/2024 Weight 206 lbs 10/22/2024 BMI 27.94 kg/m2 10/22/2024 Encounters Encounter Location Date Provider Diagnosis Kb Reese III, MD [address] [place] [address] [place] [address] 10/22/2024 Kb Reese Other and unspecifie d hyperlipidemia E78.5 ; Radiculopathy, lumbar region M54.16 ; Overweight E66.3 ; Former smoker Z87.891 ; Autologous bone marrow transplantation status Z94.81 and History of lymphoma Z85.79 Assessments Encounter Date Diagnosis (ICD Code) Assessment Notes Treat ment Notes Treatment Clinical Notes 10/22/2024 Other and unspecifie d hyperlipidemia (ICD-10 - E78.5) The current fasting lipid profile shows his lipids to be well controlled and low risk. Current therapy was continued without change. 10/22/2024 Radiculopathy, lumba r region (ICD-10 - M54.16) His back pain is only minimal and occasional. He is avoiding heavy lifting. 10/22/2024 Overweight (ICD-10 - E66.3) He is very slightly overweight. We discussed diet and nutrition. He will stabilize his weight at this level and then attempt to lose several pounds. 10/22/2024 Former smoker (ICD-1 0 - Z87.891) He is highly motivated not to smoke. We have discussed a plan for prevention of relapse in times of stress or illness. 10/22/2024 Autologous bone beba ow transplantation status (ICD-10 - Z94.81) He remains in remission at this time. 10/22/2024 History of lymphoma (ICD-10 - Z85.79) He remains in clinical remission after his bone marrow transplant. Surveillance will continue at short intervals. Plan Of Treatment Medication Medication Name Sig Start Date Stop Date Notes amLODIPine Besylate 5 MG TAKE 1 TABLET BY MOUTH EVERY DAY Pending Test Test Name Order Date PROFILE, FASTING (COMPREHENSIVE METABOLI C) 10/22/2024 LDH 10/22/2024 SED RATE (ESR) 10/22/2024 CBC WITH AUTO DIFF 10/22/2024 Lipid Panel 10/22/2024 Next Appt Details Follow Up: As Scheduled, In five months, Reason: OV, Routine checkup Provider Name:Kb Reese , 09/09/2025 10:45:00 AM, [address] [place] [address] [address], [place], [address], Provider Name:Kb Reese , 02/24/2026 03:30:00 PM, [address] [place] [address] [address], [address], Progress Notes * Kb MORSEDOB: 3 (73 yo M)Acc No.[id number]:10/22/2024 Progress Notes Patient: Kb BAIN Provider: Vaishali Reese MD :1950 A ge:73 Y S ex:Male Date:10/22/2024 Address:[address], [id number] Subjective: * Chief Complaints: * H istory of Testicular large cell lymphoma in remissionHistory of autologous bone marrow transplantLumbar radiculopathyHyperlipidemia * HPI: C OVID-19 Screening: Questions H ave you had any new onset fever, chills, cough, congestion, sore throat, shortness of breath, muscle aches? N o * : The patient, a 73-year-old male, reported that he had a cold for a few days but did not get sick when everyone around him was getting norovirus and strep. He had a history of lymphoma, but there were no signs of it coming back. He had blood tests done the previous Tuesday at [facility]. The results showed that his sodium, potassium, chloride, bicarbonate, anion gap, blood sugar, kidney function, liver cholesterol, and GFR were all normal. His cholesterol was under 200, and his good cholesterol was high. His PSA was very low, indicating no prostate cancer. His white blood cells, red blood cells, and platelets were all normal. He had a bit of congestion in his chest. He had a disc problem in his back, but it was not causing him any trouble. He was not experiencing any problems with his remaining testicle, and he was not getting up out of bed to pee at night. He had a bit of rosacea on his face. His heart rate was slow, and his rhythm was regular. He did not have any heart murmurs. His blood pressure was 135 over 78. Blood Sugar Level is 117. * ROS: G eneral/Constitutional: pain I ntermittent mild low back pain, otherwise only normal aches and pains. C hills d enies. F atigue a dmits. F ever d enies. ? E NT: Decreased hearing d enies. R [...] enies.?Headache d enies. L ow back pain d enies. P sychiatric: Depressed mood d enies. * Medical History: * Surgical History: r ight radical orchiectomy 10/26/2010root canal 08/2020Port placement and spinal tap 10/2020No history * Hospitalization/Major Diagno stic Procedure: N o history * Family History: F ather: 76 yrs, bowel disorder, congestive heart failure. M other: 83 yrs, diabetes mellitus, emphysema, diagnosed with DM. 2 brother(s) , 6 sister(s) . 1 son(s) , 1 daughter(s) - healthy. . His siblings have a history of leukemia and breast cancer. * Social History: T obacco Use: T obacco Use/Smoking P atient is a f ormer smoker H ow long has it been since you last smoked??> 10 years A dditional Findings: Tobacco Non-User E x-cigarette smoker Hali park has been to [place] for 28 years and has a son and a daughter. He is working. He was born in [place], [place]. * Medications: T akingamLODIPine Besylate 5 MG Tablet TAKE 1 TABLET BY MOUTH EVERY DAY Medication List reviewed and reconciled with the patientTaking amLODIPine Besylate 5 MG Tablet TAKE 1 TABLET BY MOUTH EVERY DAY Medication List reviewed and reconciled with the patient * Allergies: N o Known Drug Allergyno[Allergies Verified] Objective: * Vitals: H t: 72, Wt:206, BMI:27.94, BP:134/78, HR:96, Temp:97.9, Wt-k.44. * Examination: G eneral Examination: GENERAL APPEARANCE: p leasant, well nourished, well developed, in no acute distress, calm and relaxed, overweight, man. HEAD: a traumatic, normocephalic. EYES: e eugenio, perrla, anicteric, conjugate. EARS: n ormal. NOSE: s eptum intact. ORAL CAVITY: n ormal, unremarkable. NECK/THYROID: n o jugular venous distention, no [...] sounds normal, no ascites, no organomegaly, no mass, overweight. RECTAL EXAM: n ot examined. MUSCULOSKELETAL: e xtremities unremarkable, no clubbing, cyanosis or edema. PERIPHERAL PULSES: n ormal. NEUROLOGIC: a lert and oriented, cranial nerves 2-12 grossly intact, deep tendon reflexes 2+ symmetrical, motor strength normal upper and lower extremities, sensory exam intact. PSYCH: a lert, oriented. - : { 'Chest Examination':'A bit of congestion', 'Back Examination': 'Disc problem, no trouble', 'Testicle Examination': 'No problem', 'Lung Examination': 'No problem', 'Mouth Examination': 'No trouble', 'Ear Examination': 'Little red, nothing serious', 'Heart Examination': 'Heart rate slow, rhythm regular, no murmurs', 'Skin Examination': 'Bit of rosacea'}. G enitourinary - Male: TESTICLES: R emaining testis normal. Assessment: * Assessment: 1. O ther and unspecified hyperlipidemia - E78.5 (Primary) N otes :The current fasting lipid profile shows his lipids to be well controlled and low risk. Current therapy was continued without change. 2 . R adiculopathy, lumbar region - M54.16 N otes :His back pain is only minimal and occasional. He is avoiding heavy lifting. 3 . O verweight - E66.3 N otes :He is very slightly overweight. We discussed diet and nutrition. He will stabilize his weight at this level and then attempt to lose several pounds. 4 . F ormer smoker - Z87.891 N otes :He is highly motivated not to smoke. We have discussed a plan for prevention of relapse in times of stress or illness. 5 . 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 6 . H istory of lymphoma - Z85.79 N otes :He remains in clinical remission after his bone marrow transplant. Surveillance will continue at short intervals. Plan: * Treatment: 2. O verweight L AB: PROFILE, FASTING (COMPREHENSIVE METABOLIC) L AB: LDH L AB: SED RATE (ESR) L AB: CBC WITH AUTO DIFF L AB: Lipid Panel 3. O thers Continue amLODIPine Besylate Tablet, 5 MG, TAKE 1 TABLET BY MOUTH EVERY DAY. * Procedure Codes: * Preventive Medicine: Counseling: C are goal follow-up plan: Counseling for abnormal BMI given Y es Above Normal BMI Follow-up D ietary management education, guidance, and counseling, Dietary needs education S moking/Tobacco Use Patient counseled on the dangers of tobacco use and urged to quit. 0 10/22/2024 * Follow Up: A s Scheduled, In five months (Reason: OV, Routine checkup) * Images: * Sign off status: Completed true * Provider: Vaishali Reese MD Date: 0 10/22/2024 Generated for Ilana alcala/[place]án[place] on: 11/04/2024 08:37 PM EST History and Physical Notes * HPI (History of Present Illness) Category Sub-Category Detail Notes COVID-19 Screening Questions Have you had any new onset fever, chills, cough, congestion, sore throat, shortness of breath, muscle aches?: No Examination Category Sub-Category Detail Notes Genitourinary - Male TESTICLES: Remaining t estis normal General Examination GENERAL APPEARANCE: pleasant , well nourished, well developed, in no acute distress, calm and relaxed, overweight, man HEAD: atraumatic, normocep halic EYES: eomi, perrla, anicte jackie, conjugate EARS: normal NOSE: septum intact NECK/THYROID: no jugular venous di stention, no carotid bruit, thyroid normal HEART: no clicks, gallops, murmurs, or rubs, regular rhythm, S1, S2 normal, no s3, or vascular bruits LUNGS: clear to auscultatio n ABDOMEN: bowel sounds normal, no ascites, no organomegaly, no mass, overweight NEUROLOGIC: alert and oriented, cranial nerves 2-12 grossly intact, deep tendon reflexes 2+ symmetrical, motor strength normal upper and lower extremities, sensory exam intact SKIN: no suspicious lesion s, anicteric PERIPHERAL PULSES: normal BREASTS: no masses palpable b ilaterally MUSCULOSKELETAL: extremities unremark able, no clubbing, cyanosis or edema LYMPH NODES: no enlarged lymph no cathi,spleen normal RECTAL EXAM: not examined PSYCH: alert, oriented ORAL CAVITY: normal, unremarkable
--- OUTSIDE RECORDS SUMMARY | 2025-02-20 10:30 | XMS_ITS ---
Author Organization Kb Reese III, MD Address [address] [place] [address] Care Team Providers Care Primary Education Professor Name Role Phone Dr. Kb Reese III Primary Care Provider [phone] Allergies Allergen (clinical drug ingredient) Drug/Non Drug Allergy documented on EMR Reaction Allergy Type Onset Date Status No Known Drug Allergy Unknown Drug Allergy Active No Known Food Allergy Unknown Drug Allergy Active Results Component Value Reference Range Notes URINE DIP STICK Reviewed date:02/20/2025 03:23:05 PM Interpretation: Performing Lab: Notes/Report: SG 1.005 1.005 - 1.025 pH 6.5 5.0 - 9.0 MIR Negative Negative - NIT Negative Negative - PRO 15 Negative - Trace GLU Negative Negative - KET Negative Negative - UBG 0.2 0.1 - 1.8 ADITHYA Negative 0.2 - 1.3 BLD Negative Negative - REASON FOR VISIT Annual Exam Medications Medication SIG (Take, Route, Frequency, Duration) Notes Start Date End Date Status amLODIPine Besylate 5 MG TAKE 1 TABLET B Y MOUTH EVERY DAY Active Social History Tobacco Use: Social History Observation Description Date Details (start date - stop date) Former Smoker NA - NA Sex Assigned At : Social History Observation Description Sex Assigned At Male Tobacco Control (Standard) Question Answer Notes Tobacco use: Former smoker How long has it been since you last smoked? Grea ter than 10 years Additional Findings: Tobacco non-user Ex-cigaret te smoker AUDIT-C (Standard) Question Answer Notes Did you have a drink contain ing alcohol in the past year? Yes How often did you have six o r more drinks on one occasion in the past year? 2 to 4 times a month (2 points) How many drinks did you have on a typical day when you were drinking in the past year? 1 or 2 drinks (0 point) How often did you have a dri nk containing alcohol in the past year? 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 We discussed diet and nutrition today. We made a plan to lose weight at a rate of one half of a pound per week. He had no peripheral edema today. 02/20/2025 Malignant lymphoma o f testis (ICD-10 - C85.99) There is no sign of recurrent lymphoma on today's examination or upon review blood work. 02/20/2025 Rosacea (ICD-10 - L71.9) The rosacea is minimal at this time and does not require any additional treatment. 02/20/2025 Radiculopathy, lumba r region (ICD-10 - M54.16) His back pain is only minimal and occasional. He is avoiding heavy lifting. 02/20/2025 Former smoker (ICD-1 0 - Z87.891) He is highly motivated not to smoke. We have discussed a plan for prevention of relapse in times of stress or illness. 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 02/20/2025 Chronic leukopenia (ICD-10 - D72.819) His white blood cell count is 4400 with a normal differential. No infections have occurred. Observation will continue. 02/20/2025 Encounter for screening colonoscopy (ICD-10 - Z12.11) He is due for colonoscopy and was referred for the same. Plan Of Treatment Medication Medication Name Sig Start Date Stop Date Notes amLODIPine Besylate 5 MG TAKE 1 TABLET BY MOUTH EVERY DAY Pending Test Test Name Order Date PROFILE, FASTING (COMPREHENSIVE METABOLI C) 02/20/2025 PSA, TOTAL 02/20/2025 CBC w DIFF 02/20/2025 Lipid Panel 02/20/2025 Next Appt Details Follow Up: 3 Months, Reason: ov review labs Provider Name:Kb Jeffy Reese , 09/09/2025 10:45:00 AM, [address] [place] [address] [address], [place], [address], Provider Name:bK Park Mary Ann , 02/24/2026 03:30:00 PM, [address] [place] [address] [address], [place], [phone], Progress Notes * Kb MORSEDOB: 3 (74 yo M)Acc No.[id number]:02/20/2025 Progress Notes Patient: Kb BAIN Provider: Vaishali Reese MD :1950 A ge:74 Y S ex:Male Date:02/20/2025 Address[address] [id number] Subjective: * Chief Complaints: * A nnual Exam * HPI: D epression Screening: Hali park returns for evaluation of his medical issues and 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 His only complaint was that last week she had an episode of lightheadedness when rising from sitting lasting about 10 minutes. He thinks his pulse may have been high at that time. Sproles during the visit today was 100 bpm. His vital signs were otherwise stable and his oxygen saturation was 98%. His blood work was reviewed and he is not anemic. Repeat blood work with thyroid function tests were ordered.His back pain is reasonably minimal.He no longer smokes cigarettes. He is trying to keep his weight in the normal range. Blood work that was done at [facility] February 11, 2025 showed glucose 123 BUN 9 creatinine 0.62 AST 57 ALTs 68 total cholesterol 208 triglycerides 1:15 HDL 80 LDL 105 ratio 2.6 white count 4.4 hematocrit 44.3 platelets 175 differential normal. PHQ-9 L ittle interest or pleasure in doing things?Not at all F eeling down, depressed, or hopeless N ot at all T rouble falling or staying asleep, or sleeping too much N ot at all F eeling tired or having little energy N ot at all P oor appetite or overeating N ot at all F eeling bad about yourself or that you are a failure, or have let yourself or your family down N ot at all T rouble concentrating on things, such as reading the newspaper or watching television N ot at all M oving or speaking so slowly that other people could have noticed; or the opposite, being so fidgety or restless that you have been moving around a lot more than usual N ot at all T houghts that you would be better off or of hurting yourself in some way N ot at all T otal Score 0 C OVID-19 Screening: Questions H ave you had any new onset fever, chills, cough, congestion, sore throat, shortness of breath, muscle aches? N o S LANDON Questions: SDOH Questions I n the past year have you been worried about losing your housing? N o I n the past year have you or any family members you live with been unable to get any of the following when it was really needed? Check all that apply: N one F all Risk Screening: Fall History H ave you had any falls with injury in the past year? N o H ave you had two or more falls in the past year? N o F all Risk Assessment: N o falls in the past year * ROS: G eneral/Constitutional: pain o nly normal aches and pains. C hills d enies.?Fatigue a dmits. F ever d enies. E NT: Decreased hearing d enies. R espiratory: Cough d enies. C ardiovascular: Chest pain with exertion d enies. D yspnea on exertion?denies. S hortness of breath d enies. G astrointestinal: Constipation d enies. D ecreased appetite d enies.?Diarrhea d enies. H eartburn d enies. N ausea d enies. R ectal bleeding?denies. V omiting d enies. H ematology: bruising [...] Social History: T obacco Use: T obacco Control (Standard) T obacco use: F ormer smoker H ow long has it been since you last smoked??Greater than 10 years A dditional Findings: Tobacco non-user E x-cigarette smoker D rugs/Alcohol: D rugs H ave you used drugs other than those for medical reasons in the past 12 months? N o D rug/Alcohol: A NEEMA-C (Standard) D id you have a drink containing alcohol in the past year? Y es H ow often did you have six or more drinks on one occasion in the past year? 2 to 4 times a month (2 points) H ow many drinks did you have on a typical day when you were drinking in the past year? 1 or 2 drinks (0 point) H ow often did you have a drink containing alcohol in the past year? N ever (0 point) P oints 2 I nterpretation N egative Hali park has been to [place] for 28 years and has a son and a daughter. He is working. He was born in [place], [place]. * Medications: T akingamLODIPine Besylate 5 MG Tablet TAKE 1 TABLET BY MOUTH EVERY DAY Medication List reviewed and reconciled with the patientTaking amLODIPine Besylate 5 MG Tablet TAKE 1 TABLET BY MOUTH EVERY DAY Medication List reviewed and reconciled with the patient * Allergies: N o Known Drug AllergyNo Known Food Allergyno[Allergies Verified] Objective: * Vitals: H t: 72, Wt:208, BMI:28.21, BP:133/91, HR:100, Temp:98.8, Wt-k.35. Her oral office were. * P ast Orders: Lab:URINE DIP STICK * Collection Date 02/20/2025 02/15/2024 Order Date 02/20/2025 02/15/2024 SG 1.005 (Ref Range: 1.005 - 1.025) 1.020 (Ref Range: 1.005 - 1.025) pH 6.5 (Ref Range: 5.0 - 9.0) 6.0 (Ref Range: 5.0 - 9.0) MIR Negative (Ref Range: Negative -) Negative (Ref Range: Negative -) NIT Negative (Ref Range: Negative -) Negative (Ref Range: Negative -) PRO 15 (Ref Range: Negative - Trace) 15 (Ref Range: Negative - Trace) GLU Negative (Ref Range: Negative -) Negative (Ref Range: Negative -) KET Negative (Ref Range: Negative -) Negative (Ref Range: Negative -) UBG 0.2 (Ref Range: 0.1 - 1.8) 0.2 (Ref Range: 0.1 - 1.8) ADITHYA Negative (Ref Range: 0.2 - 1.3) Negative (Ref Range: 0.2 - 1.3) BLD Negative (Ref Range: Negative -) Negative (Ref Range: Negative -) * Examination: G eneral Examination: GENERAL APPEARANCE: p leasant, well nourished, well developed, in no acute distress, calm and relaxed, overweight, man. HEAD: a traumatic, normocephalic. EYES: e eugenio, perrla, anicteric, conjugate. EARS: n ormal. NOSE: s eptum intact. ORAL CAVITY: n ormal, unremarkable, No evidence for neoplasm. NECK/THYROID: n o jugular venous distention, no [...] no organomegaly, no mass, overweight. RECTAL EXAM: D eferred to upcoming colonoscopy. MUSCULOSKELETAL: e xtremities unremarkable, no clubbing, cyanosis or edema. PERIPHERAL PULSES: n ormal. NEUROLOGIC: a lert and oriented, cranial nerves 2-12 grossly intact, deep tendon reflexes 2+ symmetrical, motor strength normal upper and lower extremities, sensory exam intact. PSYCH: a lert, oriented, speech clear, cognitive function intact, good eye contact. Assessment: * Assessment: 1. M alignant lymphoma of testis - C85.99 (Primary) N otes :There is no sign of recurrent lymphoma on today's examination or upon review blood work. 2 . O verweight - E66.3 N otes :His weight is stable and his body mass index is 28. We discussed diet and nutrition today.? We made a plan to lose weight at a rate of one half of a pound per week. He had no peripheral edema today. 3 . R osacea - L71.9 N otes :The rosacea is minimal at this time and does not require any additional treatment. 4 . R adiculopathy, lumbar region - M54.16 N otes :His back pain is only minimal and occasional. He is avoiding heavy lifting. 5 . F ormer smoker - Z87.891 N otes :He is highly motivated not to smoke. We have discussed a plan for prevention of relapse in times of stress or illness. 6 . 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 7 . C hronic leukopenia - D72.819 N otes :His white blood cell count is 4400 with a normal differential. No infections have occurred. Observation will continue. 8 . E ncounter for screening colonoscopy - Z12.11 N otes :He is due for colonoscopy and was referred for the same. Plan: * Treatment: 2. O verweight L AB: PROFILE, FASTING (COMPREHENSIVE METABOLIC) L AB: PSA, TOTAL L AB: CBC w DIFF L AB: Lipid Panel 3. O thers Continue amLODIPine Besylate Tablet, 5 MG, TAKE 1 TABLET BY MOUTH EVERY DAY. * Labs: * L ab: URINE DIP STICK (Collection Date & Time - 02/20/2025) Value Reference Range S G 1.005 1.005 - 1.025 * p H 6.5 5.0 - 9.0 * L EU Negative Negative - * N IT Negative Negative - * P RO 15 Negative - Trace * G CHUCK Negative Negative - * K ET Negative Negative - * U BG 0.2 0.1 - 1.8 * B IL Negative 0.2 - 1.3 * B LD Negative Negative - * Procedure Codes: 8 1002 URINE-NO MICRO * Preventive Medicine: Counseling: C are goal follow-up plan: Counseling for abnormal BMI given Y es Above Normal BMI Follow-up D ietary management education, guidance, and counseling S moking/Tobacco Use Patient counseled on the dangers of tobacco use and urged to quit. 0 02/20/2025 * Follow Up: 3 Months (Reason: ov review labs) * Images: * Sign off status: Completed true * Provider: Vaishali Reese MD Date: 0 02/20/2025 Generated for Ilana alcala/Madison/Shantellsmitting on: 11/04/2024 08:38 PM EST History and Physical Notes * HPI (History of Present Illness) Category Sub-Category Detail Notes Depression Screening PHQ-9 Little inte rest or pleasure in doing things: Not at all Feeling down, depressed, or hopeless: No t at all Trouble falling or staying asleep, or sl eeping too much: Not at all Feeling tired or having little energy: N ot at all Poor appetite or overeating: Not at all Feeling bad about yourself o r that you are a failure, or have let yourself or your family down: Not at all Trouble concentrating on thi ngs, such as reading the newspaper or watching television: Not at all Moving or speaking so slowly that other people could have noticed; or the opposite, being so fidgety or restless that you have been moving around a lot more than usual: Not at all Thoughts that you would be b marci off or of hurting yourself in some way: Not at all Total Score: 0 Fall Risk Screening Fall History Have you had any falls with injury in the past year?: No Have you had two or more falls in the year?: No Fall Risk Assessment:: No falls in the year COVID-19 Screening Questions Have you had any new onset fever, chills, cough, congestion, sore throat, shortness of breath, muscle aches?: No SDOH Questions SDOH Questions In the past year have you been worried about losing your housing?: No In the past year have you or any family members you live with been unable to get any of the following when it was really needed? Check all that apply:: None Examination Category Sub-Category Detail Notes General Examination [...] enlarged lymph no cathi,spleen normal RECTAL EXAM: Deferred to upcoming colonoscopy PSYCH: alert, oriented, spe ech clear, cognitive function intact, good eye contact ORAL CAVITY: normal, unremarkable , No evidence for neoplasm
--- OUTSIDE RECORDS SUMMARY | 2025-02-26 09:30 | XMS_ITS ---
Author Organization Kb Reese III, MD Address [address] [place] [address] Care Team Providers Care Deli Clerk Name Role Phone Dr. Kb Reese III Primary Care Provider Allergies Allergen (clinical drug ingredient) Drug/Non Drug Allergy documented on EMR Reaction Allergy Type Onset Date Status No Known Drug Allergy Unknown Drug Allergy Active No Known Food Allergy Unknown Drug Allergy Active REASON FOR VISIT Episode of dizziness, Premature ventricular contractions, Lymphoma in remission, History of bone marrow transplant Medications Medication SIG (Take, [...] Additional Findings: Tobacco non-user Ex-cigaret te smoker Vital Signs Temperature 97.3 degrees Fahrenheit 02/27/20 25 Blood pressure systolic 145 mm Hg 02/27/20 25 Blood pressure diastolic 85 mm Hg 025 Heart Rate 85 /min 02/26/2025 Height 72 in 02/26/2025 Weight 209 lbs 02/26/2025 BMI 28.34 kg/m2 02/26/2025 Encounters Encounter Location Date Provider Diagnosis Kb Reese III, MD [address] [place] [address] [place] [address] 02/26/2025 Kb Reese Premature ventricula r contractions I49.3 ; Other and unspecified hyperlipidemia E78.5 ; Radiculopathy, lumbar region M54.16 ; Overweight E66.3 ; Former smoker Z87.891 ; 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 I have ordered a Holter monitor. He may need an echocardiogram. 02/26/2025 Other and unspecifie d hyperlipidemia (ICD-10 - E78.5) The current fasting lipid profile shows his lipids to be well controlled and low risk. Current therapy was continued without change. 02/26/2025 Radiculopathy, lumba r region (ICD-10 - M54.16) His back pain is only minimal and occasional. He is avoiding heavy lifting. 02/26/2025 Overweight (ICD-10 - E66.3) His weight is stable and his body mass index is 28. We discussed diet and nutrition today. We made a plan to lose weight at a rate of one half of a pound per week. He had no peripheral edema today. 02/26/2025 Former smoker (ICD-1 0 - Z87.891) He is highly motivated not to smoke. We have discussed a plan for prevention of relapse in times of stress or illness. 02/26/2025 Malignant lymphoma o f testis (ICD-10 - C85.99) There is no sign of recurrent lymphoma on today's examination or upon review blood work. 02/26/2025 Autologous bone beba ow transplantation status (ICD-10 - Z94.81) He remains in remission at this time. 02/26/2025 Chronic leukopenia (ICD-10 - D72.819) His white blood cell count is 4400 with a normal differential. No infections have occurred. Observation will continue. Plan Of Treatment Medication Medication Name Sig Start Date Stop Date Notes amLODIPine Besylate 5 MG TAKE 1 TABLET BY MOUTH EVERY DAY Pending Test Test Name Order Date XR CHEST 2 VIEW PA & LAT 02/26/2025 ECG 12 lead EKG 02/26/2025 ECG 7 day holter monitor 02/26/2025 Next Appt Details Follow Up: 1 Week, Reason: O V Provider Name:Kb Reese , 09/09/2025 10:45:00 AM, [address], [place], [address], Provider Name:Kb Reese , 02/24/2026 03:30:00 PM, [address] [place] [place], [address], Progress Notes * Kb MORSEDOB: 3 (74 yo M)Acc No.[id number]:02/26/2025 Progress Notes Patient: Kb BAIN Provider: Vaishali Reese MD :1950 A ge:74 Y S ex:Male Date:02/26/2025 Address: [address] [id number] Subjective: * Chief Complaints: * E pisode of dizzinessPremature ventricular contractionsLymphoma in remissionHistory of bone marrow transplant * HPI: C OVID-19 Screening: O n February 22, 2025. He was [place] and he began to feel dizzy.? He felt down into short of breath for a moment. He put his head down and then recovered. He was not aware of any bradycardia or tachycardia. He did not have any chest pain.? This lasted about 2 min. He comes in today to be reevaluated. On cardiac examination he was having premature heartbeats consistent with PVCs as was compensatory positives. He was sent for an electrocardiogram that showed normal sinus rhythm with PVCs. Comprehensive blood work was ordered. He appeared to be stable today. A Holter monitor was scheduled. Questions H ave you had any new onset fever, chills, cough, congestion, sore throat, shortness of breath, muscle aches? N o * ROS: G eneral/Constitutional: pain o nly [...] dditional Findings: Tobacco non-user E x-cigarette smoker Hali park has been to [place] for 28 years and has a son and a daughter. He is working. He was born in [place], [place]. * Medications: T akingamLODIPine Besylate 5 MG Tablet TAKE 1 TABLET BY MOUTH EVERY DAY Medication List reviewed and reconciled with the patientTaking amLODIPine Besylate 5 MG Tablet TAKE 1 TABLET BY MOUTH EVERY DAY Medication List reviewed and reconciled with the patient * Allergies: N o Known Drug AllergyNo Known Food Allergyno[Allergies Verified] Objective: * Vitals: H t: 72, Wt:209, BMI:28.34, BP:145/85, HR:85, Temp:97.3, Wt-k.8. * P ast Orders: Lab:URINE DIP STICK [...] eptum intact. ORAL CAVITY: n ormal, unremarkable, Without any sign of recurrent lymphoma. NECK/THYROID: n o jugular venous distention, no carotid bruit, thyroid normal. LYMPH NODES: n o enlarged lymph nodes,spleen normal. SKIN: n o suspicious lesions, anicteric. HEART: n o clicks, gallops, murmurs, or rubs, regular rhythm with occasional premature beat, S1, S2 normal, no s3, or vascular [...] a lert, oriented. Assessment: * Assessment: 1. P remature ventricular contractions - I49.3 (Primary) N otes :EKG documents premature ventricular contractions in normal sinus rhythm. I have ordered a Holter monitor. He may need an echocardiogram. 2 . O ther and unspecified hyperlipidemia - E78.5 N otes :The current fasting lipid profile shows his lipids to be well controlled and low risk. Current therapy was continued without change. 3 . R adiculopathy, lumbar region - M54.16 N otes :His back pain is only minimal and occasional. He is avoiding heavy lifting. 4 . O verweight - E66.3 N otes :His weight is stable and his body mass index is 28. We discussed diet and nutrition today. We made a plan to lose weight at a rate of one half of a pound per week. He had no peripheral edema today. 5 . F ormer smoker - Z87.891 N otes :He is highly motivated not to smoke. We have discussed a plan for prevention of relapse in times of stress or illness. 6 . M alignant lymphoma of testis - C85.99 N otes :There is no sign of recurrent lymphoma on today's examination or upon review blood work. 7 . 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 8 . C hronic leukopenia - D72.819 N otes :His white blood cell count is 4400 with a normal differential. No infections have occurred. Observation will continue. Plan: * Treatment: * Imaging: * I maging: XR CHEST 2 VIEW PA & LAT I maging: ECG 12 lead EKG I maging: ECG 7 day holter monitor * Procedure Codes: * Preventive Medicine: Counseling: C are goal follow-up plan: Counseling for abnormal BMI given Y es Above Normal BMI Follow-up D ietary management education, guidance, and counseling S moking/Tobacco Use Patient counseled on the dangers of tobacco use and urged to quit. 0 02/26/2025 * Follow Up: 1 Week (Reason: OV) * Images: * Sign off status: Completed true * Provider: Vaishali Reese MD Date: 0 02/26/2025 Generated for Corali ng/Fazoëg/eTransmitting on: 1 11/04/2024 08:39 PM EST History and Physical Notes * HPI (History of Present Illness) Category Sub-Category Detail Notes COVID-19 Screening Questions Have you had any new onset fever, chills, cough, congestion, sore throat, shortness of breath, muscle aches?: No Examination Category Sub-Category Detail Notes General Examination GENERAL APPEARANCE: pleasant , well nourished, well developed, in no acute distress, calm and relaxed, overweight, man HEAD: atraumatic, normocep halic EYES: eomi, perrla, anicte jackie, conjugate EARS: normal NOSE: septum intact NECK/THYROID: no jugular venous di stention, no carotid bruit, thyroid normal HEART: no clicks, gallops, murmurs, or rubs, regular rhythm with occasional premature beat, S1, S2 normal, no s3, or vascular [...] alert, oriented ORAL CAVITY: normal, unremarkable , Without any sign of recurrent lymphoma
--- OUTSIDE RECORDS SUMMARY | 2025-03-04 05:15 | XMS_ITS ---
Author Organization Kb Reese III, MD Address [address] [place] [place] [address] Care Team Providers Care Acrylic Fabricator Name Role Phone Dr. Kb Reese III Primary Care Provider Allergies Allergen (clinical drug ingredient) Drug/Non Drug Allergy documented on EMR Reaction Allergy Type Onset Date Status No Known Drug Allergy Unknown Drug Allergy Active No Known Food Allergy Unknown Drug Allergy Active REASON FOR VISIT Follow up Medications Medication SIG (Take, Route, Frequency, Duration) [...] Additional Findings: Tobacco non-user Ex-cigaret te smoker Encounters Encounter Location Date Provider Diagnosis Kb Reese III, MD [address] [place] [address] [place] [address] 03/04/2025 Kb Reese Plan Of Treatment Medication Medication Name Sig Start Date Stop Date Notes amLODIPine Besylate 5 MG TAKE 1 TABLET BY MOUTH EVERY DAY Next Appt Details Provider Name:Kb Reese , 09/09/2025 10:45:00 AM, [address] [facility] [place], [address], Provider Name:Kb Reese , 02/24/2026 03:30:00 PM, [address] [facility], [address], Progress Notes * Kb MORSEDOB: 3 (74 yo M)Acc No.[id number]:03/04/2025 Progress Notes Patient: Kb BAIN Provider: Vaishali Reese MD :1950 A ge:74 Y S ex:Male Date:03/04/2025 Address:[address] [place], [id number] Subjective: * Chief Complaints: * 1 . Follow up. * HPI: C OVID-19 Screening: Questions H [...] have been noted. G enitourinary: Frequent urination d enies. M usculoskeletal: Muscle aches d enies. P ainful joints d enies. S ciatica d enies. W eakness d enies. S kin: Itching d enies. R senia d enies. S kin lesion(s)?denies. N eurologic: Difficulty speaking d enies. D izziness d enies.?Headache d enies. L ow back pain d enies. P sychiatric: Depressed mood d enies. 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 * Surgical History: r ight radical orchiectomy 10/26/2010, root canal 08/2020, Port placement and spinal tap 10/2020, No history . * Hospitalization/Major Diagno stic Procedure: N o history . * Family History: F ather: 76 yrs, [...] dditional Findings: Tobacco non-user E x-cigarette smoker H vivian has been to [place] for 28 years and has a son and a daughter. He is working. He was born in [place], [place]. * Medications: T aking amLODIPine Besylate 5 MG Tablet TAKE 1 TABLET BY MOUTH EVERY DAY , Medication List reviewed and reconciled with the patient * Allergies: N o Known Drug Allergy, No Known Food Allergy. Objective: * Vitals: * Examination: G eneral Examination: GENERAL APPEARANCE: p leasant, well nourished, well developed, in no acute distress, calm and relaxed. HEAD: a traumatic, normocephalic. EYES: e eugenio, [...] exam intact. PSYCH: a lert, oriented. Assessment: Plan: * Treatment: * Images: * The named appointment provid er may or may not be the originator of this progress note, and it is not deemed complete until electronically signed by the appointment provider. Sign off status: Pending * Provider: Vaishali Reese MD Date: 0 03/04/2025 Generated for Corali cari/Madison/Shantellsmitting on: 11/04/2024 08:39 PM EST History and Physical [...]
--- OUTSIDE RECORDS SUMMARY | 2025-03-15 06:30 | XMS_ITS ---
Author Organization Kb Reese III, MD Address [address] [place] [address] Care Team Providers Care Executive Administrative Asst Name Role Phone Dr. Kb Reese III Primary Care Provider Allergies Allergen (clinical drug ingredient) Drug/Non Drug Allergy documented on EMR Reaction Allergy Type Onset Date Status No Known Drug Allergy Unknown Drug Allergy Active No Known Food Allergy Unknown Drug Allergy Active REASON FOR VISIT EKG /holter monitor done at , Premature ventricular contractions Medications Medication SIG (Take, Route, Frequency, Duration) [...] Problem Status W/U Status Risk Notes Problem 225101573 Premature ventricular contraction (I49.3) Active confirmed He has a history of premature ventricular contractions and an essentially normal Holter monitor. His heart rate today was regular at about 80 bpm with frequent premature contractions. He was sent to get an EKG. Vital Signs Temperature 97.9 degrees Fahrenheit 03/15/20 25 Blood pressure systolic 144 mm Hg 03/15/20 25 Blood pressure diastolic 88 mm Hg 025 Heart Rate 91 /min 03/15/2025 Height 72 in 03/15/2025 Weight 212 lbs 03/15/2025 BMI 28.75 kg/m2 03/15/2025 Encounters Encounter Location Date Provider Diagnosis Kb Reese III, MD [address] [place] [address] [address] [place], [place] [address] 03/15/2025 Kb Reese Premature ventricula r contraction I49.3 ; Other and unspecified hyperlipidemia E78.5 ; Rosacea L71.9 ; Radiculopathy, lumbar region M54.16 ; Overweight E66.3 ; Former smoker Z87.891 and Malignant lymphoma of testis C85.99 Assessments Encounter Date Diagnosis (ICD Code) Assessment Notes Treat ment Notes Treatment Clinical Notes 03/15/2025 Premature ventricula r contraction (ICD-10 - I49.3) The Holter monitor showed primarily normal sinus rhythm. He'll be observed at this time. 03/15/2025 Other and unspecifie d hyperlipidemia (ICD-10 - E78.5) The current fasting lipid profile shows his lipids to be well controlled and low risk. Current therapy was continued without change. 03/15/2025 Rosacea (ICD-10 - L71.9) The rosacea is minimal at this time and does not require any additional treatment. 03/15/2025 Radiculopathy, lumba r region (ICD-10 - M54.16) His back pain is only minimal and occasional. He is avoiding heavy lifting. 03/15/2025 Overweight (ICD-10 - E66.3) His weight is stable and his body mass index is 28. We discussed diet and nutrition today. We made a plan to lose weight at a rate of one half of a pound per week. He had no peripheral edema today. 03/15/2025 Former smoker (ICD-1 0 - Z87.891) He is highly motivated not to smoke. We have discussed a plan for prevention of relapse in times of stress or illness. 03/15/2025 Malignant lymphoma o f testis (ICD-10 - C85.99) There is no sign of recurrent lymphoma on today's examination or upon review blood work. Plan Of Treatment Medication Medication Name Sig Start Date Stop Date Notes amLODIPine Besylate 5 MG TAKE 1 TABLET BY MOUTH EVERY DAY Next Appt Details Follow Up: As Scheduled, Coden son: OV Provider Name:Kb Reese , 09/09/2025 10:45:00 AM, [address] [facility], [place], [address], Provider Name:Kb Reese , 02/24/2026 03:30:00 PM, [address] [facility], [place], [address], Progress Notes * Kb MORSEDOB: 3 (74 yo M)Acc No.[id number]:03/15/2025 Progress Notes Patient: Kb BAIN Provider: Vaishali Reese MD :1950 A ge:74 Y S ex:Male Date:03/15/2025 Address:[address] [place] [address] [place], [phone] Subjective: * Chief Complaints: * E KG /holter monitor done at Preidture ventricular contractions * HPI: C OVID-19 Screening: He recently was noted to have premature contractions and palpitations. He has had no chest pain or dyspnea. He had one episode of dizziness on a golf course recently which has not recurred. The Holter monitor shows occasional premature ventricular contractions but was predominantly normal sinus rhythm. He will be followed carefully for this witth no change in his medication. His examination today was unremarkable. There was no sign of recurrent lymphoma. His vital signs are stable. His back pain is minimal. Questions H ave you had any new onset fever, chills, cough, congestion, sore throat, shortness of breath, muscle aches? N o * ROS: G eneral/Constitutional: pain C hronic low back pain. C hills d enies. F atigue a [...] eurologic: Difficulty speaking d enies. D izziness N one since last visit. H eadache d enies. L ow back pain d [...] He is working. He was born in [place], [place]. * Medications: T akingamLODIPine Besylate 5 MG Tablet TAKE 1 TABLET BY MOUTH EVERY DAY Medication List reviewed and reconciled with the patientTaking amLODIPine Besylate 5 MG Tablet TAKE 1 TABLET BY MOUTH EVERY DAY Medication List reviewed and reconciled with the patient * Allergies: N o Known Drug AllergyNo Known Food Allergyno[Allergies Verified] Objective: * Vitals: H t: 72, Wt:212, BMI:28.75, BP:144/88, HR:91, Temp:97.9, Wt-k.16. * Examination: G eneral Examination: GENERAL APPEARANCE: [...] xtremities unremarkable, no clubbing, cyanosis or edema, Diminished range of motion lumbar spine. PERIPHERAL PULSES: n ormal. NEUROLOGIC: a lert and oriented, cranial nerves 2-12 grossly intact, deep tendon reflexes 2+ symmetrical, motor strength normal upper and lower extremities, sensory exam intact. PSYCH: a lert, oriented. G enitourinary - Male: TESTICLES: T he remaining testis is within normal limits..? Assessment: * Assessment: 1. P remature ventricular contraction - I49.3 (Primary) N otes :The Holter monitor showed primarily normal sinus rhythm. He'll be observed at this time. 2 . O ther and unspecified hyperlipidemia - E78.5 N otes :The current fasting lipid profile shows his lipids to be well controlled and low risk. Current therapy was continued without change. 3 . R osacea - L71.9 N otes :The rosacea is minimal at this time and does not require any additional treatment. 4 . R adiculopathy, lumbar region - M54.16 N otes :His back pain is only minimal and occasional. He is avoiding heavy lifting. 5 . O verweight - E66.3 N otes :His weight is stable and his body mass index is 28. We discussed diet and nutrition today. We made a plan to lose weight at a rate of one half of a pound per week. He had no peripheral edema today. 6 . F ormer smoker - Z87.891 N otes :He is highly motivated not to smoke. We have discussed a plan for prevention of relapse in times of stress or illness. 7 . M alignant lymphoma of testis - C85.99 N otes :There is no sign of recurrent lymphoma on today's examination or upon review blood work. Plan: * Treatment: * Procedure Codes: * Preventive Medicine: Counseling: C are goal follow-up plan: Counseling for abnormal BMI given Y es Above Normal BMI Follow-up D ietary needs education S moking/Tobacco Use Patient counseled on the dangers of tobacco use and urged to quit. 0 03/15/2025 * Follow Up: A s Scheduled (Reason: OV) * Images: * Sign off status: Completed true * Provider: Vaishali Reese MD Date: 0 03/15/2025 Generated for Ilana alcala/[place]/eTransmitting on: 1 11/04/2024 08:38 PM EST History and Physical Notes * HPI (History of Present Illness) Category Sub-Category Detail Notes COVID-19 Screening Questions Have you had any new onset fever, chills, cough, congestion, sore throat, shortness of breath, muscle aches?: No Examination Category Sub-Category Detail Notes Genitourinary - Male TESTICLES: The balaji alcala testis is within normal limits. General Examination GENERAL APPEARANCE: pleasant , well [...] unremark able, no clubbing, cyanosis or edema, Diminished range of motion lumbar spine LYMPH NODES: no enlarged lymph no cathi,spleen normal RECTAL EXAM: not examined PSYCH: alert, oriented ORAL CAVITY: normal, unremarkable
--- OUTSIDE RECORDS SUMMARY | 2025-05-24 10:00 | XMS_ITS ---
Author Organization Kb Reese III, MD Address [address] [place] [address] Care Team Providers Care Route Service Manager Name Role Phone Dr. Kb Reese III Primary Care Provider Allergies Allergen (clinical drug ingredient) Drug/Non Drug Allergy documented on EMR Reaction Allergy Type Onset Date Status No Known Drug Allergy Unknown Drug Allergy Active No Known Food Allergy Unknown Drug Allergy Active REASON FOR VISIT History of testicular lymphoma, History of stem cell bone marrow transplant, Lumbar radiculopathy, Hypertension, Rosacea Medications Medication SIG (Take, Route, Frequency, Duration) [...] non-user Ex-cigaret te smoker Vital Signs Temperature 98.2 degrees Fahrenheit 05/24/20 25 Blood pressure systolic 132 mm Hg 05/24/20 25 Blood pressure diastolic 70 mm Hg 025 Heart Rate 90 /min 05/24/2025 Height 72 in 05/24/2025 Weight 210 lbs 05/24/2025 BMI 28.48 kg/m2 05/24/2025 Encounters Encounter Location Date Provider Diagnosis Kb Reese III, MD [address] [place] [address] [place] [address] 05/24/2025 Kb Reese Other and unspecifie d hyperlipidemia E78.5 ; Erectile dysfunction N52.9 ; Rosacea L71.9 ; Radiculopathy, lumbar region M54.16 ; Former smoker Z87.891 and 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 Current therapy was continued without change. 05/24/2025 Erectile dysfunction (ICD-10 - N52.9) This problem has been addressed and has been resolved. 05/24/2025 Rosacea (ICD-10 - L71.9) The rosacea is minimal at this time and does not require any additional treatment. 05/24/2025 Radiculopathy, lumba r region (ICD-10 - M54.16) His back pain is only minimal and occasional. He is avoiding heavy lifting. 05/24/2025 Former smoker (ICD-1 0 - Z87.891) He is highly motivated not to smoke. We have discussed a plan for prevention of relapse in times of stress or illness. 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 Plan Of Treatment Medication Medication Name Sig Start Date Stop Date Notes amLODIPine Besylate 5 MG TAKE 1 TABLET BY MOUTH EVERY DAY Next Appt Details Follow Up: 3 Months, Reason: ov Provider Name:Kb Reese , 09/09/2025 10:45:00 AM, [address] [place] [address] [address], [place], [address], Provider Name:Kb Reese , 02/24/2026 03:30:00 PM, [address] [place] [address] [address], [place], [address], Progress Notes * Kb MORSEDOB: 3 (74 yo M)Acc No.[id number]:05/24/2025 Progress Notes Patient: Kb BAIN Provider: Vaishali Reese MD :1950 A ge:74 Y S ex:Male Date:05/24/2025 Address:[address] [place], [phone] Subjective: * Chief Complaints: * H istory of testicular lymphomaHistory of stem cell bone marrow transplantLumbar radiculopathyHypertensionRosacea * HPI: C OVID-19 Screening: [place] returns for a routine scheduled visit to manage his medical issues. His lymphoma remains in remission. He had an MRI this morning at [facility] the results of which is pending.His vital signs were stable today. He has no new complaints. He has had no infections. He says he feels healthy and well. Questions H ave you had any new [...] He is working. He was born in [place], [place]. * Medications: T akingamLODIPine Besylate 5 MG Tablet TAKE 1 TABLET BY MOUTH EVERY DAY Medication List reviewed and reconciled with the patientTaking amLODIPine Besylate 5 MG Tablet TAKE 1 TABLET BY MOUTH EVERY DAY Medication List reviewed and reconciled with the patient * Allergies: N o Known Drug AllergyNo Known Food Allergyno[Allergies Verified] Objective: * Vitals: H t: 72, Wt:210, BMI:28.48, BP:132/70, HR:90, Temp:98.2, Wt-k.25. * P ast Orders: I maging:XR chest 2V (Order Date - 02/26/2025) (Performed Date - 02/26/2025) * Examination: G eneral Examination: GENERAL APPEARANCE: p leasant, well nourished, well developed, in no acute distress, calm and relaxed: overweight: man. HEAD: a traumatic, normocephalic. EYES: e [...] sounds normal, no ascites, no organomegaly, no mass: overweight. RECTAL EXAM: n ot examined. MUSCULOSKELETAL: e xtremities unremarkable, no clubbing, cyanosis or edema, Healed surgical incision over lumbar spine. PERIPHERAL PULSES: n ormal. NEUROLOGIC: a lert and oriented, cranial nerves 2-12 grossly intact, deep tendon reflexes 2+ symmetrical, motor strength normal upper and lower extremities, sensory exam intact. PSYCH: a lert, oriented: cognitive function intact: cooperative with exam: good eye contact: speech clear: thought process logical, goal directed. ? Assessment: * Assessment: 1. O ther and unspecified hyperlipidemia - E78.5 (Primary) N otes :The current fasting lipid profile shows his lipids to be well controlled and low risk. Current therapy was continued without change. 2 . E rectile dysfunction - N52.9 N otes :This problem has been addressed and has been resolved. 3 . R osacea - L71.9 N [...] management education, guidance, and counseling, Dietary needs education, Exercise promotion: strength training, Exercise promotion: stretching, Feeding regime, Giving encouragement to exercise, Lifestyle education regarding diet, Nutrition / feeding management, Nutrition therapy, Prescribed activity/exercise education, Prescribed diet education, Prescribed dietary intake, Special diet education, Weight monitoring , Intervention, Order not done: Medical or Other reason not done S moking/Tobacco Use Patient counseled on the dangers of tobacco use and urged to quit. 0 05/24/2025 * Follow Up: 3 Months (Reason: ov) * Images: * Sign off status: Completed true * Provider: Vaishali Reese MD Date: 0 05/24/2025 Generated for Corali cari/[place]/eTransmitting on: 1 11/04/2024 08:39 PM EST History and Physical Notes * HPI (History of Present Illness) Category Sub-Category Detail Notes COVID-19 Screening Questions Have you had any new onset fever, chills, cough, congestion, sore throat, shortness of breath, muscle aches?: No Examination Category Sub-Category Detail Notes General Examination GENERAL APPEARANCE: pleasant , well nourished, well developed, in no acute distress, calm and relaxed: overweight: man HEAD: atraumatic, normocep halic EYES: eomi, perrla, anicte jackie, conjugate EARS: normal NOSE: septum intact NECK/THYROID: no jugular venous di stention, no carotid bruit, thyroid normal HEART: no clicks, gallops, murmurs, or rubs, regular rhythm, S1, S2 normal, no s3, or vascular bruits LUNGS: clear to auscultatio n ABDOMEN: bowel sounds normal, no ascites, no organomegaly, no mass: overweight NEUROLOGIC: alert and oriented, cranial nerves 2-12 grossly intact, deep tendon reflexes 2+ symmetrical, motor strength normal upper and lower extremities, sensory exam intact SKIN: no suspicious lesion s, anicteric PERIPHERAL PULSES: normal BREASTS: no masses palpable b ilaterally MUSCULOSKELETAL: extremities unremark able, no clubbing, cyanosis or edema, Healed surgical incision over lumbar spine LYMPH NODES: no enlarged lymph no cathi,spleen normal RECTAL EXAM: not examined PSYCH: alert, oriented: cog nitive function intact: cooperative with exam: good eye contact: speech clear: thought process logical, goal directed ORAL CAVITY: normal, unremarkable
--- OUTSIDE RECORDS SUMMARY | 2025-09-04 05:00 | XMS_ITS ---
Author Organization Kb Reese III, MD Address [address] [place] [address] Care Team Providers Care Qc Scientist Name Role Phone Dr. Kb Reese III Primary Care Provider [phone] Allergies Allergen (clinical drug ingredient) Drug/Non Drug Allergy documented on EMR Reaction Allergy Type Onset Date Status No Known Drug Allergy Unknown Drug Allergy Active No Known Food Allergy Unknown Drug Allergy Active REASON FOR VISIT Dyspnea and dizziness with bending forward, Hyperlipidemia, Lumbar radiculopathy, History of testicular lymphoma, History of bone marrow transplant, History of PVCs Medications Medication SIG (Take, Route, Frequency, Duration) [...] has it been since you last smoked? Trinidad ter than 10 years Additional Findings: Tobacco non-user Ex-cigaret te smoker Problems Problem Type SNOMED Code ICD Code Onset Dates Problem Status W/U Status Risk Notes Problem [id number] Postural dizziness (R42) Active confirmed He either has positional vertigo or a low blood pressure. He will stop the amlodipine for a week and return to the office for reevaluation. He is going to telephone me in 48 hours and will call me at once for any worsening of the symptoms. 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 We have discussed a plan for prevention of relapse in times of stress or illness. 09/04/2025 Postural dizziness (ICD-10 - R42) He either has positional vertigo or a low blood pressure. He will stop the amlodipine for a week and return to the office for reevaluation. He is going to telephone me in 48 hours and will call me at once for any worsening of the symptoms. 09/04/2025 Overweight (ICD-10 - E66.3) His weight is stable and his body mass index is 28. We discussed diet and nutrition today. We made a plan to lose weight at a rate of one half of a pound per week. He had no peripheral edema today. 09/04/2025 Premature ventricula r contraction (ICD-10 - I49.3) He has a history of premature ventricular contractions and an essentially normal Holter monitor. His heart rate today was regular at about 80 bpm with frequent premature contractions. He was sent to get an EKG. 09/04/2025 History of lymphoma (ICD-10 - Z85.79) He remains in clinical remission after his bone marrow transplant. Surveillance will continue at short intervals. 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 Plan Of Treatment Medication Medication Name Sig Start Date Stop Date Notes amLODIPine Besylate 5 MG TAKE 1 TABLET BY MOUTH EVERY DAY Pending Test Test Name Order Date ECG 12 lead EKG 09/04/2025 Next Appt Details Follow Up: 2 - 3 Days, Reaso n: OV Provider Name:Kb Reese , 09/09/2025 10:45:00 AM, [address] [facility] [address], [place], [address], Provider Name:Kb Reese , 02/24/2026 03:30:00 PM, [address] [facility] [place], [address], Progress Notes * Kb MORSEDOB: 3 (74 yo M)Acc No.[id number]:09/04/2025 Progress Notes Patient: Kb BAIN Provider: Vaishali Reese MD :1950 A ge:74 Y S ex:Male Date:09/04/2025 Address:[address] [place] [address] [id number] Subjective: * Chief Complaints: * D yspnea and dizziness with bending forwardHyperlipidemiaLumbar radiculopathyHistory of testicular lymphomaHistory of bone marrow transplantHistory of PVCs * HPI: C OVID-19 Screening: He comes to the office for same-day visit complaining of a dizzy feeling and shortness of breath when bending over. He has been clearing the leaves from his yard and whenever he bends over he gets a tight pain in the muscles of his back and he feels dizzy and lightheaded and breathes heavily. He then sits down and the sensation departs. There is a loss of the sensation of balance as well. He denies any spinning sensation. This never occurs unless he bends forward.? If he does not bend over he feels healthy and well. His examination today was unremarkable. He was neurologically intact with normal carotids. We discussed that this might be labyrinthitis or it might be a drop in blood pressure. His pressure today was 120/70. He will stop his amlodipine for a week and pay attention to the symptoms and record them. He will return to the office next week where his pressure will be checked again. In the office I had him bend over and pick his phone up off the floor. This reproduced the symptoms. Questions H ave you had any new [...] yspnea on exertion?denies. S hortness of breath H e reports dyspnea with bending over to pick leaves up off the ground. G astrointestinal: Constipation d enies. D ecreased [...] eurologic: Difficulty speaking d enies. D izziness H e reports dizziness and balance loss but not a spinning sensation with bending forward to pick these up off the ground. H eadache d enies. L ow back [...] He is working. He was born in [place], [place]. * Medications: T akingamLODIPine Besylate 5 MG Tablet TAKE 1 TABLET BY MOUTH EVERY DAY Medication List reviewed and reconciled with the patientTaking amLODIPine Besylate 5 MG Tablet TAKE 1 TABLET BY MOUTH EVERY DAY Medication List reviewed and reconciled with the patient * Allergies: N o Known Drug AllergyNo Known Food Allergyno[Allergies Verified] Objective: * Vitals: H t: 72, Wt:211, BMI:28.61, BP:120/72, HR:75, Temp:97.1, Wt-k.71. * Examination: G eneral Examination: GENERAL APPEARANCE: p leasant, well nourished, well developed, in no acute distress, calm and relaxed: overweight: man. HEAD: a traumatic, normocephalic. EYES: e eugenio, perrla, anicteric, conjugate. EARS: n ormal. NOSE: s eptum intact. ORAL CAVITY: n ormal, unremarkable, no visible neoplasm.? NECK/THYROID: n o jugular venous distention, no carotid bruit, thyroid normal. LYMPH NODES: n o enlarged lymph nodes,spleen normal. SKIN: n o suspicious lesions, anicteric. HEART: n o clicks, gallops, murmurs, or rubs, regular rhythm, S1, S2 normal, no s3, or vascular bruits, frequent premature beats about 1 in 5. LUNGS: c lear to auscultation . BREASTS: [...] normal upper and lower extremities, sensory exam intact, lateral flexion and rotation of the head did not reproduce the symptoms but standing up and bending down to berry picker machine operator his cell phone from the floor did cause the symptoms.. PSYCH: a lert, oriented. Assessment: * Assessment: 1. P ostural dizziness - R42 (Primary) N otes :He either has positional vertigo or a low blood pressure. He will stop the amlodipine for a week and return to the office for reevaluation. He is going to telephone me in 48 hours and will call me at once for any worsening of the symptoms. 2 . F ormer smoker - Z87.891 N otes :He is highly motivated not to smoke. We have discussed a plan for prevention of relapse in times of stress or illness. 3 . O verweight - E66.3 N otes :His weight is stable and his body mass index is 28. We discussed diet and nutrition today. We made a plan to lose weight at a rate of one half of a pound per week. He had no peripheral edema today. 4 . P remature ventricular contraction - I49.3 N otes :He has a history of premature ventricular contractions and an essentially normal Holter monitor.? His heart rate today was regular at about 80 bpm with frequent premature contractions. He was sent to get an EKG. 5 . H istory of lymphoma - Z85.79 N otes :He remains in clinical remission after his bone marrow transplant. Surveillance will continue at short intervals. 6 . 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 Plan: * Treatment: * Imaging: * I maging: ECG 12 lead EKG * Procedure Codes: * Preventive Medicine: Counseling: C are goal follow-up plan: Counseling for abnormal BMI given Y es Above Normal BMI Follow-up D ietary management education, guidance, and counseling S moking/Tobacco Use Patient counseled on the dangers of tobacco use and urged to quit. 1 11/04/2024 * Follow Up: 2 - 3 Days (Reason: OV) * Images: * Sign off status: Completed true * Provider: Vaishali Reese MD Date: 11/04/2024 Generated for Printi ng/[place]/eTransmitting on: 11/04/2024 08:39 PM EST History and [...] S1, S2 normal, no s3, or vascular bruits, frequent premature beats about 1 in 5 LUNGS: clear to auscultatio n ABDOMEN: bowel sounds normal, no ascites, no organomegaly, no mass NEUROLOGIC: alert and oriented, cranial nerves 2-12 grossly intact, deep tendon reflexes 2+ symmetrical, motor strength normal upper and lower extremities, sensory exam intact, lateral flexion and rotation of the head did not reproduce the symptoms but standing up and bending down to berry picker machine operator his cell phone from the floor did cause the symptoms. SKIN: no suspicious lesion s, anicteric PERIPHERAL PULSES: normal BREASTS: no masses palpable b ilaterally MUSCULOSKELETAL: extremities unremark able, no clubbing, cyanosis or edema LYMPH NODES: no enlarged lymph no cathi,spleen normal RECTAL EXAM: not examined PSYCH: alert, oriented ORAL CAVITY: normal, unremarkable , no visible neoplasm
--- OUTSIDE RECORDS SUMMARY | 2025-09-04 05:30 | XMS_ITS ---
Author Organization Kb Reese III, MD Address [address] [place] [address] Care Team Providers Care Spectrographer Name Role Phone Dr. Kb Reese III Primary Care Provider [phone] REASON FOR VISIT Questioning Covid Booster Social History Sex Assigned At : Social History Observation Description Sex Assigned At Male Encounters Encounter Location Date Provider Diagnosis Kb Reese III, MD [address] [place] [address] [place] [address] 09/04/2025 Kb Reese Plan Of Treatment Next Appt Details Provider Name:Kb Reese , 09/09/2025 10:45:00 AM, [address] [place] [address] [place], [address], Provider Name:Kb Reese , 02/24/2026 03:30:00 PM, [address] [place] [address] [place], [address], Progress Notes * Kb MORSEDOB: 3 (74 yo M)Acc No.[id number]:09/04/2025 Patient: Kb BAIN :1950 A ge:74 Y S ex:Male Address:[address] [place] [address] * true * Date: Generated for Printi ng/Faxing/eTransmitting on: 11/04/2024 08:39 PM EST
--- NOTE | 2025-09-04 10:38 | ECG_ITS ---
Test Reason : IRREGULAR HEART RATE Blood Pressure : */* mmHG Vent. Rate : 92 BPM Atrial Rate : 92 BPM P-R Int : 252 ms QRS Dur : 106 ms QT Int : 366 ms P-R-T Axes : 39 -27 55 degrees QTcB Int : 452 ms Sinus rhythm with 1st degree A-V block with Premature atrial complexes Incomplete right bundle branch block Inferior infarct , age undetermined Abnormal ECG When compared with ECG of 26-Feb-2025 15:30, Premature ventricular complexes are no longer Present Premature atrial complexes are now Present Referred By: Kb Reese Electronically Signed By: PIETER GOODE
--- OUTSIDE RECORDS SUMMARY | 2025-09-04 20:38 | XMS_ITS | Encounter Summary ---
Author Organization [facility] Address [address] [place] [address] Phone Care Team Providers Care Elevator Adjuster Name Role Phone Kb Reese MD Primary Care Provider [phone] Jeanne Burch Unavailable [email or web address] Татьяна Becker MD Unavailable [phone] Kelly Palumbo [facility] Unavailable [phone] Encounter Details Date Type Department Care Team (Late st Contact Info) Description 01/27/2021 Documentation [facility], Division of Hematologic Oncology, [facility] [address] [place] [address] Viry Giron RN [address] [place] [id number] [email or web address] Social History Tobacco Use Types Packs/Day Years Used Date Smoking Tobacco: Former Smokeless Tobacco: Former Quit: 2010 Comments:Smoking History Pac ks/day: <=0.5 Alcohol Use Standard Drinks/Week Comments Yes 42 (1 standard drink = 0.6 oz pu re alcohol) Sex and Gender Information Value Date Recorded Sex Assigned at Not on file Legal Sex Male 5:18 PM EST Gender Identity Not on file Sexual Orientation Not on file documented as of this encounter Progress Notes * Ana Maria Carl PA-C - 01/27/2021 5:53 PM EDT Images from the original note were not included. AUTOLOGOUS MALE DONOR EVALUATION NOTE Planned date of mobilization: 01/30/2021 (Note: Transplant evaluating clinician must sign this form prior to mobilization date) Will any of the FDA/AABB required infectious disease be outdated (greater than 30 days) at the timeof collection or not performed prior to collection?: Yes. Please explain: IDM outside window. SOP Deviation note in EPIC (Note: The Collect Facility must be notified in writing if the response to this question changes prior to donation collection.) Is the donor , , , Gerald Black, South or Central [place] Black, or Other Black? OR is the donor from the [place], [place], or [place]?: No Does the donor have a personal or family history of any hemoglobinopathies? (Examples include sickle cell disease or Thalassemia): No If Yes or Unsure to either of the two questions above, an appropriate hemoglobinopathy test is required. Will a hemoglobinopathy test be ordered and resulted prior to mobilization?: N/A Does the donor use recreational drugs?: No Does the donor use alcohol?: Yes. Describe alcohol use and number of drinks/week: Enjoys beer; socially. Verbalizes no alcohol consumption 2 weeks prior to collection. Does the donor use tobacco?: Yes. Indicate type (ciggarettes, chew, pipe) and frequency (amount/week): Ciggarrettes 1 pack a day; started when he was 14 or 15; quit 11 years ago. Does the donor have a history of any cardiac issues?: No Does the donor have a history of diabetes?: No Does the donor have a history of migraine headaches?: No Medical Clearance Statement I, the transplant evaluating clinician, have reviewed all donor data, including the medical history, physical exam, relevant medical records and laboratory test results, and have deemed this donor krishan medically suitable for the following events (select all that apply): Mobilization and apheresis Any abnormal findings not mentioned above that would contribute to added safety concerns pertainingto line placement, mobilization, and/or collection will be or has been communicated to the appropriate collection facility and shall be noted here: None The information gathered about this patient's medical history was obtained by the [facility]. I verified the information above through a chart review of [facility] records from the hematology/oncology team. Ana Maria Carl MS, STEPHANIE Physician Regional Account Executive Hematologic Malignancies and Stem Cell Transplant (t) [phone], pager#[phone] documented in this encounter Plan of Treatment Not on file documented as of this encounter Visit Diagnoses Diagnosis Autologous donor of stem cells documented in this encounter Care Teams Elevator Adjuster Relationship Specialty Start Date End Date Kb Reese MD [address] [place] [address] Dr [address] [place] [address] PCP - General 02/21/15 Jeanne Burch [address] [place] [address] Dr [address] [place] [address] [email or web address] 12/09/20 Татьяна Becker MD [address] [place] [phone] [email or web address] 03/17/21 Kelly [place], [address] [address] [email or web address] Screen Operator Oncology 01/02/21 documented as of this encounter Additional Source Comments The information contained in this document represents components of the legal health record. It is not the complete legal health record.[facility]
--- OUTSIDE RECORDS SUMMARY | 2025-09-04 20:38 | XMS_ITS | Encounter Summary ---
Author Organization [facility] Address [address] [place] [address] Phone Care Team Providers Care Senior Technical Support Engineer Name Role Phone Kb Reese MD Primary Care Provider [phone] Jeanne Burch Unavailable Jeanne_[email or web address] Татьяна Becker MD Unavailable [phone] Kelly Palumbo [facility] Unavailable [phone] Reason for Visit * Reason Onset Date Comments SOP Deviation Approval Note 01/27/2021 Encounter Details Date Type Department Care Team (Late st Contact Info) Description 01/27/2021 Documentation [facility], Division of Hematologic Oncology, [facility] [address] [facility], 7th [place] [address] Viry Giron RN [address] [place] [id number] [email or web address] SOP Deviation Approval Note Social History Tobacco Use Types Packs/Day Years [...] on file documented as of this encounter Plan of Treatment Not on file documented as of this encounter Visit Diagnoses Not on filedocumented in this encounter Care Teams Senior Technical Support Engineer Relationship Specialty Start Date End Date Kb Reese MD [address] [place] [address] [place] [id number] PCP - General 02/21/15 Jeanne Burch [address] [place] [address] [place] [phone] [email or web address] Lean Manufacturing Coordinator 12/09/20 Татьяна Becker MD [address] [place] [phone] [email or web address] Medicine 03/17/21 Kelly Palumbo, [address] [address] [email or web address] Machine Operator Oncology 01/02/21 documented as of this encounter Additional Source Comments The information contained in this document represents components of the legal health record. It is not the complete legal health record.[facility]
--- OUTSIDE RECORDS SUMMARY | 2025-09-04 20:38 | XMS_ITS | Encounter Summary ---
Author Organization [facility] [place] [address] Care Team Providers Care Fabric Worker Foreman Name Role Phone Kb Reese MD Primary Care Provider [phone] Encounter Details Date Type Department Care Team (Late Contact Info) Description 10/15/2024 Lab Requisition [facility] - Main Lab [address] [facility] [place] [address] Kb Reese MD [address] [facility] [address] [place] [phone] Overweight; Male erectile dysfunction, unspecified Social History [...] Department Care Team (Late Contact Info) Description 12/30/2025 10:30 AM EDT Office Visit [facility] Hematology Oncology [address] [place] [address] Татьяна Becker MD [address] [place] [address] documented as of this encounter [...] ult [facility] [address] [place] [address], * (ABNORMAL) CBC auto differential (10/15/2024 8:15 AM EST) WBC 5.1 4.8 - 10.8 K/[facility] LAB HEMETOLOGY METHOD 10/15/2024 8:48 AM EST [facility] RBC 4.60 4.50 - 5.50 M/mcL LAB HEMETOLOGY METHOD 10/15/2024 8:48 AM [facility] Hemoglobin 14.6 13.5 - 17.5 g/dL LAB HEMETOLOGY METHOD 10/15/2024 8:48 AM [facility] Hematocrit 43.2 42.0 - 54.0 % LAB HEMETOLOGY METHOD 10/15/2024 8:48 AM [facility] MCV 94.1 79.0 - 98.0 FL LAB HEMETOLOGY METHOD 10/15/2024 8:48 AM [facility] MCH 31.8 27.0 - 32.0 pcg LAB HEMETOLOGY METHOD 10/15/2024 8:48 AM [facility] MCHC 33.8 32.0 - 37.0 g/dL LAB HEMETOLOGY METHOD 10/15/2024 8:48 AM [facility] RDW 13.2 11.0 - 15.0 % LAB HEMETOLOGY METHOD 10/15/2024 8:48 AM [facility] Platelets 216 130 - 400 K/mcL LAB HEMETOLOGY METHOD 10/15/2024 8:48 AM [facility] MPV 9.4 7.0 - 11.0 FL LAB HEMETOLOGY METHOD 10/15/2024 8:48 AM [facility] NRBC 0.0 <1.0 % LAB HEMETOLOGY METHOD 10/15/2024 8:48 AM [facility] NRBC Absolute 0.00 <0.10 K/mcL LAB HEMETOLOGY METHOD 10/15/2024 8:48 AM [facility] Neutrophils Relative 63.4 % LAB HEMETOLOGY METHOD 10/15/2024 8:48 AM [facility] Lymphocytes Relative 18.3 % LAB HEMETOLOGY METHOD 10/15/2024 8:48 AM [facility] Monocytes Relative 12.8 % LAB HEMETOLOGY METHOD 10/15/2024 8:48 AM EST [facility] Eosinophils Relative 3.9 % LAB HEMETOLOGY METHOD 10/15/2024 8:48 AM [facility] Basophils Relative 1.0 % LAB HEMETOLOGY METHOD 10/15/2024 8:48 AM [facility] Immature Granulocytes Relative 0.6 % LAB HEMETOLOGY METHOD 10/15/2024 8:48 AM [facility] Neutrophils Absolute 3.21 1.50 - 7.00 K/mcL LAB HEMETOLOGY METHOD 10/15/2024 8:48 AM [facility] Lymphocytes Absolute 0.93(L) 1.00 - 5.00 K/mcL LAB HEMETOLOGY METHOD 10/15/2024 8:48 AM [facility] Monocytes Absolute 0.65 0.20 - 1.00 K/mcL LAB HEMETOLOGY METHOD 10/15/2024 8:48 AM [facility] Eosinophils Absolute 0.20 0.00 - 0.50 K/mcL LAB HEMETOLOGY METHOD 10/15/2024 8:48 AM [facility] Basophils Absolute 0.05 0.00 - 0.20 K/mcL LAB HEMETOLOGY METHOD 10/15/2024 8:48 AM [facility] Immature Granulocytes Absolute 0.03 0.00 - 0.03 K/mcL LAB HEMETOLOGY METHOD 10/15/2024 8:48 AM [facility] Blood Venous blood specimen / Unknown 10/15/2024 8:15 AM EST 10/15/2024 8:37 AM EST us Kb Reese MD LAB BLOOD ORDERABLES Final Res ult [facility] [address] [place] [address], * (ABNORMAL) Lipid panel with reflex to direct LDL (10/15/2024 8:15 AM EST) Cholesterol 199 0 - 200 mg/dL LAB CHEMISTRY METHOD 10/15/2024 9:05 AM [facility] Triglycerides 148 0 - 150 mg/dL LAB CHEMISTRY METHOD 10/15/2024 9:05 AM [facility] HDL 65 >=40 mg/dL LAB CHEMISTRY METHOD 10/15/2024 9:05 AM [facility] LDL Calculated 104(H) 0 - 100 mg/dL LAB CHEMISTRY METHOD 10/15/2024 9:05 AM [facility] VLDL Cholesterol Donte 29.6 mg/dL LAB CHEMISTRY METHOD 10/15/2024 9:05 AM [facility] Non HDL Chol. (LDL+VLDL) 134 <145 mg/dL LAB CHEMISTRY METHOD 10/15/2024 9:05 AM [facility] Chol/HDL Ratio 3.1 0.0 - 4.4 LAB CHEMISTRY METHOD 10/15/2024 9:05 AM [facility] Blood Venous blood specimen / Unknown 10/15/2024 8:15 AM EST 10/15/2024 8:37 AM EST Kb Reese MD LAB BLOOD ORDERABLES Final Res ult [facility] [address] [place] [address], [place] [phone] * Prostate specific antigen screen (10/15/2024 8:15 AM EST) PSA 0.91 0.00 - 4.00 ng/mL LAB CHEMISTRY METHOD 10/15/2024 11:20 AM [facility] Blood Venous blood specimen / Unknown 10/15/2024 8:15 AM EST 10/15/2024 8:37 AM EST Narrative [facility] - 10/15/2024 11:20 AM EST The Siemens Advia Centaur Chemiluminescent Immunoassay is used. Results obtained with different assay methods or kits cannot be used interchangeably. Results cannot be interpreted as absolute evidence of the presence or absence of malignant disease. us Kb Reese MD LAB BLOOD ORDERABLES Final Res ult [facility] [address] [place] [address], [place] [phone] * (ABNORMAL) Comprehensive metabolic panel (10/15/2024 8:15 AM EST) Sodium 139 133 - 145 mmol/L LAB CHEMISTRY METHOD 10/15/2024 9:05 AM [facility] Potassium 4.2 3.5 - 5.5 mmol/L LAB CHEMISTRY METHOD 10/15/2024 9:05 AM [facility] Chloride 106 96 - 110 mmol/L LAB CHEMISTRY METHOD 10/15/2024 9:05 AM [facility] CO2 26 21 - 32 mmol/L LAB CHEMISTRY METHOD 10/15/2024 9:05 AM [facility] Anion Gap 7 3 - 11 LAB CHEMISTRY METHOD 10/15/2024 9:05 AM [facility] Glucose 117(H) 70 - 100 mg/dL LAB CHEMISTRY METHOD 10/15/2024 9:05 AM [facility] BUN 10 5 - 25 mg/dL LAB CHEMISTRY METHOD 10/15/2024 9:05 AM [facility] Creatinine 0.72 0.70 - 1.30 mg/dL LAB CHEMISTRY METHOD 10/15/2024 9:05 AM [facility] eGFR 98 >=60 mL/min/1. 73m2 LAB CHEMISTRY METHOD 10/15/2024 9:05 AM [facility] Comment:Calculation based on the Chronic Kidney Disease Epidemiology Collaboration (CKD-EPI) equation refit without adjustment for race. BUN/Creatinine Ratio 13.9 LAB CHEMISTRY METHOD 10/15/2024 9:05 AM [facility] Calcium 9.0 8.5 - 10.5 mg/dL LAB CHEMISTRY METHOD 10/15/2024 9:05 AM [facility] AST (SGOT) 44(H) 10 - 42 unit/L LAB CHEMISTRY METHOD 10/15/2024 9:05 AM [facility] ALT (SGPT) 45 10 - 60 unit/L LAB CHEMISTRY METHOD 10/15/2024 9:05 AM [facility] Alkaline Phosphatase 110 42 - 121 unit/L LAB CHEMISTRY METHOD 10/15/2024 9:05 AM [facility] Total Protein 6.5 6.0 - 8.0 g/dL LAB CHEMISTRY METHOD 10/15/2024 9:05 AM [facility] Albumin 3.8 3.2 - 5.0 g/dL LAB CHEMISTRY METHOD 10/15/2024 9:05 AM [facility] Total Bilirubin 0.4 0.0 - 1.4 mg/dL LAB CHEMISTRY METHOD 10/15/2024 9:05 AM [facility] Blood Venous blood specimen / Unknown 10/15/2024 8:15 AM EST 10/15/2024 8:37 AM EST us Kb Reese MD LAB BLOOD ORDERABLES Final Res ult [facility] [address] [place] [address], documented in this encounter Visit Diagnoses Diagnosis Overweight Male erectile dysfunction, unspecified documented in this encounter Care Teams Fabric Worker Foreman Relationship Specialty [place] [address] [place] [id number] PCP - General Oncology 10/15/24 documented as of this encounter
--- OUTSIDE RECORDS SUMMARY | 2025-09-04 20:38 | XMS_ITS | Encounter Summary ---
Author Organization [facility] Address [address] [place] [address] Phone Care Team Providers Care Medicine Teacher Name Role Phone Kb Reese MD Primary Care Provider [phone] Jeanne Burch Unavailable Jeanne_[email or web address] Татьяна Becker MD Unavailable [phone] Kelly Palumbo [facility] Unavailable [phone] Encounter Details Date Type Department Care Team (Late st Contact Info) Description 11/28/2020 Procedure Pass [facility] Echocardiography [address] [place] [address] Social History Tobacco Use Types Packs/Day Years [...] on filedocumented in this encounter Care Teams Medicine Teacher Relationship Specialty Start Date End Date Kb Reese MD [address] [place] [address] Dr Oliva [place] [id number] PCP - General 02/21/15 Jeanne Burch [address] [place] [address] Dr [place] [address] [email or web address] Editor Managing Director 12/09/20 Татьяна Becker MD [address] [place] [phone] [email or web address] Internal Medicine 03/17/21 Kelly Palumbo, [address] [address] [email or web address] Lathe Operator Oncology 01/02/21 documented as of this encounter Additional Source Comments The information contained in this document represents components of the legal health record. It is not the complete legal health record.[facility]
--- OUTSIDE RECORDS SUMMARY | 2025-09-04 20:38 | XMS_ITS | Patient Health Record ---
Author Organization Kb Reese III, MD Address [address] [place] [address] Care Team Providers Care Straightener And Aligner Name Role Phone Dr. Kb Reese III [...] BLD Negative Negative - XR chest 2V Reviewed date:03/17/2025 08:11:17 PM Interpretation: Performing Lab: Notes/Report: [address] [address] XRay Report Signed Patient: Kb Li MR#: [id number] 87 : 1950 Acct:[id number] Age/Sex: 74 / M ADM Date: 02/26/25 Loc: HO.XRAY Attending Dr: Kb Reese MD Ordering Physician: Kb Reese MD Date of Service: 02/26/25 Procedure(s): XR chest 2V Accession Number(s): [id number] cc: Kb Reese MD EXAMINATION: XR CHEST [...] 02/26/25 1601 DD/ 1515 TD/TT: 02/26/25 1528 Welder Apprentice Gas: [place] [address] XRay Report Signed Patient: Blaise Li MR#: [id number] 89 : 1950 Acct:[id number] Age/Sex: 74 / M ADM Date: 02/26/25 Loc: HO.XRAY Attending Dr: Kb Reese MD Ordering Physician: Kb Reese MD Date of Service: 02/26/25 Procedure(s): XR chest 2V Accession Number(s): [id number] cc: Kb Reese MD EXAMINATION: XR CHEST [...] 02/26/25 1601 DD/ 1515 TD/TT: 02/26/25 1528 Welder Apprentice Gas: Reason For Referral No Information Medications Medication [...] Problem Status W/U Status Risk Notes Problem 9696019 Former smoker (Z87.891) Active confirmed He is highly motivated not to smoke. We have discussed a plan for prevention of relapse in times of stress or illness. Problem 393140789 Overweight (E66.3) Active confirmed His weight is stable and his body mass index is 28. We discussed diet and nutrition today. We made a plan to lose weight at a rate of one half of a pound per week. He had no peripheral edema today. Problem 63716983 Age-related nuclear cataract, right eye (H25.11) Active confirmed The cataract surgery was successful in his vision is much improved. Problem 486813370 Radiculopathy, lumbar region (M54.16) Active confirmed His back pain is only minimal and occasional. He is avoiding heavy lifting. Problem 364043878 Nocturia (R35.1) Active confirmed Problem 30458082 Essential hypertension (I10) Active confirmed His blood pressure is normal today. No change in his treatment is needed. I discussed ways to reduce his systolic blood pressure, regular exercise, sodium restriction and weight loss. Problem 394736097 Erectile dysfunction (N52.9) Active confirmed This problem has been addressed and has been resolved. Problem 427370637 Rosacea (L71.9) Active confirmed The rosacea is minimal at this time and does not require any additional treatment. Problem 58910985 Other and unspecified hyperlipidemia (E78.5) Active confirmed The current fasting lipid profile shows his lipids to be well controlled and low risk. Current therapy was continued without change. Problem 22501674 Colonic polyp (K63.5) Active confirmed He had a colonoscopy yesterday that is reported as normal. 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 No infections have occurred. Observation will continue. Problem History of lymphoma (191285860) History of lymphoma (Z85.79) Active confirmed He remains in clinical remission after his bone marrow transplant. Surveillance will continue at short intervals. 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 Problem 798213925 Premature ventricular contraction (I49.3) Active confirmed He has a history of premature ventricular contractions and an essentially normal Holter monitor. His heart rate today was regular at about 80 bpm with frequent premature contractions. He was sent to get an EKG. Problem 525717759 Postural dizziness (R42) Active confirmed He either patterson s positional vertigo or a low blood pressure. He will stop the amlodipine for a week and return to the office for reevaluation. He is going to telephone me in 48 hours and will call me at once for any worsening of the symptoms. Vital Signs Heart Rate 75 /min 09/04/2025 Temperature 97.1 degrees Fahrenheit 09/04/2025 Blood pressure diastolic 72 mm Hg 09/04/2025 Height 72 in 09/04/2025 Blood pressure systolic 120 mm Hg 09/04/2025 Weight 211 lbs 09/04/2025 BMI 28.61 kg/m2 09/04/2025 Encounters Encounter Location Date Provider Diagnosis Kb Reese III, MD [address] [place] [address] DR [place], [place] [phone] 10/22/2024 Kb Reese Other and unspecifie d hyperlipidemia E78.5 ; Radiculopathy, lumbar region M54.16 ; Overweight E66.3 ; Former smoker Z87.891 ; Autologous bone marrow transplantation status Z94.81 and History of lymphoma Z85.79 Kb Reese III, MD [address] [place] [address] [place] [id number] 02/20/2025 Kb Reese Overweight E66.3 ; Malignant lymphoma of testis C85.99 ; Rosacea L71.9 ; Radiculopathy, lumbar region M54.16 ; Former smoker Z87.891 ; Autologous bone marrow transplantation status Z94.81 ; Chronic leukopenia D72.819 and Encounter for screening colonoscopy Z12.11 Kb Reese III, MD [address] [place] [address] [place] [id number] 02/26/2025 Kb Reese Premature ventricula r contractions I49.3 ; Other and unspecified hyperlipidemia E78.5 ; Radiculopathy, lumbar region M54.16 ; Overweight E66.3 ; Former smoker Z87.891 ; Malignant lymphoma of testis C85.99 ; Autologous bone marrow transplantation status Z94.81 and Chronic leukopenia D72.819 Kb Reese III, MD [address] [place] [address] [place] [id number] 03/15/2025 Kb Reese Premature ventricula r contraction I49.3 ; Other and unspecified hyperlipidemia E78.5 ; Rosacea L71.9 ; Radiculopathy, lumbar region M54.16 ; Overweight E66.3 ; Former smoker Z87.891 and Malignant lymphoma of testis C85.99 Kb Reese III, MD [address] [place] [address] [place] [id number] 05/24/2025 Kb Reese Other and unspecifie d hyperlipidemia E78.5 ; Erectile dysfunction N52.9 ; Rosacea L71.9 ; Radiculopathy, lumbar region M54.16 ; Former smoker Z87.891 and Malignant lymphoma of testis C85.99 Kb Reese III, MD [address] [place] [address] [place] [id number] 09/04/2025 Kb Reese Former smoker Z87.89 1 ; Postural dizziness R42 ; Overweight E66.3 ; Premature ventricular contraction I49.3 ; History of lymphoma Z85.79 and Autologous bone marrow transplantation status Z94.81 Kb Reese III, MD [address] [place] [address] DR [place], [place] [address] 09/04/2025 Kb Reese Assessments Encounter Date Diagnosis (ICD Code) Assessment Notes Treat ment Notes Treatment Clinical Notes 10/22/2024 Radiculopathy, lumba r region (ICD-10 - [...] Holter monitor. He may need an echocardiogram. 03/15/2025 Other and unspecifie d hyperlipidemia (ICD-10 - E78.5) The current fasting lipid profile shows his lipids to be well controlled and low risk. Current therapy was continued without change. 03/15/2025 Premature ventricula r contraction (ICD-10 - I49.3) The Holter monitor showed primarily normal sinus rhythm. He'll be observed at this time. 05/24/2025 Erectile dysfunction (ICD-10 - N52.9) This problem has been addressed and has been resolved. 05/24/2025 Other and unspecifie d hyperlipidemia (ICD-10 - E78.5) The current fasting lipid profile shows his lipids to be well controlled and low risk. Current therapy was continued without change. 09/04/2025 Former smoker (ICD-1 0 - Z87.891) [...] once for any worsening of the symptoms. 10/22/2024 Overweight (ICD-10 - E66.3) He is [...] occasional. He is avoiding heavy lifting. 03/15/2025 Rosacea (ICD-10 - L71.9) The rosacea is minimal at this time and does not require any additional treatment. 05/24/2025 Rosacea (ICD-10 - L71.9) The rosacea is minimal at this time and does not require any additional treatment. 09/04/2025 Overweight (ICD-10 - E66.3) His weight is stable and his body mass index is 28. We discussed diet and nutrition today. We made a plan to lose weight at a rate of one half of a pound per week. He had no peripheral edema today. 10/22/2024 Former smoker (ICD-1 0 - Z87.891) [...] He had no peripheral edema today. 03/15/2025 Radiculopathy, lumba r region (ICD-10 - M54.16) His back pain is only minimal and occasional. He is avoiding heavy lifting. 05/24/2025 Radiculopathy, lumba r region (ICD-10 - M54.16) His back pain is only minimal and occasional. He is avoiding heavy lifting. 09/04/2025 Premature ventricula r contraction (ICD-10 - I49.3) He has a history of premature ventricular contractions and an essentially normal Holter monitor. His heart rate today was regular at about 80 bpm with frequent premature contractions. He was sent to get an EKG. 10/22/2024 Autologous bone beba ow transplantation status [...] in times of stress or illness. 03/15/2025 Overweight (ICD-10 - E66.3) His weight is stable and his body mass index is 28. We discussed diet and nutrition today. We made a plan to lose weight at a rate of one half of a pound per week. He had no peripheral edema today. 05/24/2025 Former smoker (ICD-1 0 - Z87.891) He is highly motivated not to smoke. We have discussed a plan for prevention of relapse in times of stress or illness. 09/04/2025 History of lymphoma (ICD-10 - Z85.79) He remains in clinical remission after his bone marrow transplant. Surveillance will continue at short intervals. 10/22/2024 History of lymphoma (ICD-10 - Z85.79) [...] today's examination or upon review blood work. 03/15/2025 Former smoker (ICD-1 0 - Z87.891) He is highly motivated not to smoke. We have discussed a plan for prevention of relapse in times of stress or illness. 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 02/20/2025 Chronic leukopenia (ICD-10 - D72.819) His white blood cell count is 4400 with a normal differential. No infections have occurred. Observation will continue. 02/26/2025 Autologous bone beba ow transplantation status (ICD-10 - Z94.81) He remains in remission at this time. 03/15/2025 Malignant lymphoma o f testis (ICD-10 - C85.99) There is no sign of recurrent lymphoma on today's examination or upon review blood work. 02/20/2025 Encounter for screening colonoscopy (ICD-10 - Z12.11) He is due for colonoscopy and was referred for the same. 02/26/2025 Chronic leukopenia (ICD-10 - D72.819) His white blood cell count is 4400 with a normal differential. No infections have occurred. Observation will continue. Plan Of Treatment Pending Test Test Name Order Date PROFILE, FASTING (COMPREHENSIVE METABOLI C) 02/15/2024 PROFILE, FASTING (COMPREHENSIVE METABOLI C) 09/20/2022 PROFILE, FASTING (COMPREHENSIVE METABOLI C) 02/20/2025 PROFILE, FASTING (COMPREHENSIVE METABOLI C) 07/26/2023 PROFILE, FASTING (COMPREHENSIVE METABOLI C) 10/22/2024 PROFILE, FASTING (COMPREHENSIVE METABOLI C) 06/20/2024 PROFILE, RANDOM (COMPREHENSIVE METABOLIC ) 04/14/2020 PROFILE, RANDOM (COMPREHENSIVE METABOLIC ) 11/01/2023 PROFILE, RANDOM (COMPREHENSIVE METABOLIC ) 06/15/2022 PROFILE, RANDOM (COMPREHENSIVE METABOLIC ) 10/07/2021 MAGNESIUM 09/20/2022 LIPID PANEL 09/20/2022 LIPID PANEL 07/26/2023 LDH 04/14/2020 LDH 02/15/2024 LDH 11/01/2023 LDH 06/15/2022 LDH 10/22/2024 LDH 10/07/2021 VITAMIN B12 AND FOLATE 09/20/2022 PSA, TOTAL 06/20/2024 PSA, TOTAL 02/20/2025 PSA, TOTAL 06/15/2022 PSA, TOTAL 07/26/2023 CBC w DIFF 09/20/2022 CBC w DIFF 06/15/2022 CBC w DIFF 07/26/2023 CBC w DIFF 10/07/2021 CBC w DIFF 04/14/2020 CBC w DIFF 02/15/2024 CBC w DIFF 11/01/2023 CBC w DIFF 02/20/2025 SED RATE (ESR) 09/20/2022 SED RATE (ESR) 10/07/2021 SED RATE (ESR) 04/14/2020 SED RATE (ESR) 11/01/2023 SED RATE (ESR) 10/22/2024 CT ABD & PELVIS WITH CONTRAST 05/24/2018 [...] Panel 02/15/2024 ECG 12 lead EKG 02/26/2025 ECG 12 lead EKG 09/04/2025 ECG 7 day holter monitor 02/26/2025 Next Appt Details Provider Name:Kb Reese , 09/09/2025 10:45:00 AM, [address] [place] [address] [address]ANG, [place], [phone], Provider Name:Kb Reese , 02/24/2026 03:30:00 PM, [address] [place] [address] [place], [place], [phone], Insurance Providers Payer Name Payer Address Payer Phone Subscriber Number Group Number Insured Name Patient Relationship to Insured Coverage Start Date Coverage End Date MEDICARE NGS [address] [place] [phone] [id number] Kb Li Self - patient is the insured [facility] [address] [place], [place] [id number] [phone] [id number] Kb Li Self - patient is the insured Medical [...]
--- OUTSIDE RECORDS SUMMARY | 2025-09-04 20:38 | XMS_ITS | Encounter Summary ---
Author Organization [facility] Address [address] [place] [address] Phone Care Team Providers Care Operations Leader Name Role Phone Kb Reese MD Primary Care Provider [phone] Jeanne Burch Unavailable Jeanne_Quentin [email or web address] Татьяна Becker MD Unavailable [phone] Kelly Palumbo [facility] Unavailable [phone] Encounter Details Date Type Department Care Team (Late st Contact Info) Description 01/01/2021 Procedure Pass [facility] Angio Interventional Radiology [address] [place] [id number] Social History Tobacco Use Types Packs/Day Years [...] on filedocumented in this encounter Care Teams Operations Leader Relationship Specialty Start Date End Date Kb Reese MD [address] [place] [address] [place] [address] PCP - General 02/21/15 Jeanne Burch [address] [place] [address] [place] [address] [email or web address] Casino Worker 12/09/20 Татьяан Becker MD [address] [place] [phone] [email or web address] 03/17/21 Kelly Palumbo, [address] [address] [email or web address] [email or web address] Finisher Oncology 01/02/21 documented as of this encounter Additional Source Comments The information contained in this document represents components of the legal health record. It is not the complete legal health record.[facility]
--- OUTSIDE RECORDS SUMMARY | 2025-09-04 20:38 | XMS_ITS | Encounter Summary ---
Author Organization [facility] Address [address] [place] [address] Phone Care Team Providers Care Rhinestone Setter Name Role Phone Kb Reese MD Primary Care Provider [phone] Jeanne Burch Unavailable Jeanne_Quentin [email or web address] Татьяна Becker MD Unavailable [phone] Kelly Palumbo [facility] Unavailable [phone] Encounter Details Date Type Department Care Team (Late st Contact Info) Description 11/24/2020 Documentation [facility], [facility] [place] [address], 2nd [place] [address] [email or web address] [email or web address] Social History Tobacco Use Types Packs/Day Years [...] on filedocumented in this encounter Care Teams Rhinestone Setter Relationship Specialty Start Date End Date Kb Reese MD [address] [place] [address] [place] [address] PCP - General 02/21/15 Jeanne Burch [address] [place] [address] Dr Ziegler Mar[place] [address] [email or web address] Fraternity House Cook 12/09/20 Татьяна Becker MD [address] [place] [phone] [email or web address] Internal Medicine 03/17/21 Kelly Palumbo, [address] [address] [email or web address] U Family Worker Oncology 01/02/21 documented as of this encounter Additional Source Comments The information contained in this document represents components of the legal health record. It is not the complete legal health record.[facility]
--- OUTSIDE RECORDS SUMMARY | 2025-09-04 20:38 | XMS_ITS | Encounter Summary ---
Author Organization [facility] Address [address] [place] [address] Phone Care Team Providers Care Jigman Name Role Phone Kb Reese MD Primary Care Provider [phone] Jeanne Burch Unavailable Jeanne_Quentin [email or web address] Татьяна Becker MD Unavailable [phone] Kelly Palumbo [facility] Unavailable [phone] Encounter Details Date Type Department Care Team (Late st Contact Info) Description 12/31/2020 Documentation Laboratory Services, [facility] [place] [address] [place] [address], 2nd [place] [address] Angelia Nelson, RN [address] [place] [address] [email or web address] Social History Tobacco Use Types Packs/Day Years [...] on filedocumented in this encounter Care Teams Jigman Relationship Specialty Start Date End Date Kb Reese MD [address] [place] [address] [place] [address] PCP - General 02/21/15 Jeanne Burch [address] [place] [address] [place] [address] [email or web address] Land Clearer 12/09/20 Татьяна Becker MD [address] [place] [phone] [email or web address] Medicine 03/17/21 Kelly Palumbo, [address] [address] [email or web address] U Grounds Crew Supervisor Oncology 01/02/21 documented as of this encounter Additional Source Comments The information contained in this document represents components of the legal health record. It is not the complete legal health record.[facility]
--- OUTSIDE RECORDS SUMMARY | 2025-09-04 20:38 | XMS_ITS | Clinical Summary ---
Author Organization [facility] Address [address] [place] [phone] Phone Care Team Providers Care Reducer Name Role Phone Lyssa Reese MD Primary Care Provider Allergies No known active allergies Medications amLODIPine (NORVASC) 5 mg tablet Take 1 tablet (5 mg total) by mouth daily. 1 Active lidocaine-prilo igor (EMLA) 2.5-2.5 % cream Apply topically as needed. To [facility] 1 hour prior to access 1 Active Active Problems Problem Noted Date Diagnosed Date Abnormal PET scan of lung 07/02/2022 Hypomagnesemia 08/20/2021 Autologous bone marrow trans plantation status ([facility] V24, [facility] V28) 03/05/2021 Muscle cramp 03/05/2021 Pancytopenia ([facility] V24, [facility] V28) 03/05/20 21 Essential hypertension 11/04/2020 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 ([facility] V28) 10/28/2020 Gastroesophageal reflux disease 12/03/2010 Overview (07/03/2024): Gastroesophageal reflux disease Hemorrhoids 12/03/2010 Overview (07/03/2024): Hemorrhoids Hypercholesterolemia 12/03/2010 Overview (07/03/2024): Hypercholesterolemia Malignant lymphoma ([facility] V24, [facility] V28) Overview (07/03/2024): Malignant lymphoma (clinical); Testicular DLBCL Encounters Date Type Department Care Team Description 07/19/2025 9:45 AM EDT Office Visit 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 Social History Tobacco Use Types Packs/Day Years Used Date Smoking Tobacco: Former Smokeless Tobacco: Never Tobacco Cessation:Counseling Given: Not Answered Alcohol Use Standard Drinks/Week Comments Yes 30 [...] Sign Reading Time Taken Comments Blood Pressure 144/81 07/19/2025 9:46 AM EDT Pulse 92 07/19/2025 9:46 AM EDT Temperature 36.7 C (98 F) 07/19/2025 9:46 AM EDT Respiratory Rate - - Oxygen Saturation 99% 07/19/2025 9:46 AM EDT Inhaled Oxygen Concentration - - Weight 96.2 kg (212 lb) 07/19/2025 9:46 AM EDT Height 188 cm (6' 2 ) 12/28/2024 10:27 AM EDT Body Mass Index 27.22 12/28/2024 10:27 AM EDT Plan of Treatment Upcoming Encounters Date Type Department Care Team (Late st Contact Info) Description 12/30/2025 10:30 AM EDT Office Visit [facility] Hematology Oncology [address] [place] [address] Татьяна Becker MD [address] [place] [address] Health Maintenance Due Date Last Done Comments Colorectal Cancer Screening: Colonoscopy 1950 RSV Immunization Adult Patients (1 - Risk 50-74 years 1-dose series) 2002 Abdominal Aortic Aneurysm (AAA) Screen 11/22/2019 Hepatitis C Screening 11/22/2019 Medicare Annual Wellness Visit 11/22/2019 Social Influencers of Health Screening 11/22/2019 Depression Screening 10/17/2024 COVID-19 Vaccine ( season) 2025 07/10/2024, 07/25/2023, 09/15/2022, Additional history exists Influenza Vaccine (#1) 2025 , 07/25/2023, 07/14/2022, Additional history exists Falls Risk Assessment 04/08/2026 04/08/2025 Hypertension/CHF/CAD Annual BMP Blood Test 05/14/2026 05/14/2025, 02/11/2025, 10/15/2024, Additional history exists Cholesterol Screening (Lipid Panel) 05/14/2030 05/14/2025, 05/14/2025, 02/11/2025, Additional history exists DTaP,Tdap,and Td Vaccines (3 - Td or [...] Pneumococcal Vaccine: 50+ Years Completed 02/22/2023, 09/06/2022 HIB Vaccines Aged Out No longer eligi [...] Procedure Name Priority Date/Time Associated Diagnosis Comments IR REMOVE TUNNELED CVAD W SUBQ PORT OR PUMP Routine 06/12/2025 10:08 AM EDT 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 -------- FINAL REPORT -------- Dictated By: Alicia Isabel Dictated Date: 06/12/2025 11:48 ET Assigned Physician: Tor Dubose Reviewed and Electronically Signed By: Tor Dubose Signed Date: 06/12/2025 14:06 ET Workstation ID: [id number] Transcribed By: Self Edit Transcribed Date: 06/12/2025 11:52 ET Resident/PA/CNC MILLING MACHINIST: Alicia Isabel Narrative 06/12/2025 2:06 PM EDT History: Right-sided port removal, immunotherapy completed. PROCEDURE: After obtaining informed consent, the patient was placed in the supine position on the angiographic table. The right neck and chest was scrubbed and cleaned. The area was then prepped and draped using Chloroprep solution. Maximal sterile barrier technique was performed. All operators performed a full hand/arm scrub. Moderate sedation was not utilized. Lidocaine with epinephrine was used for local anesthetic. A 15 blade was used to make a single incision over the existing scar line. Blunt dissection was utilized to separate the reservoir from the surrounding fibrotic tissue. The port and catheter were removed together entirely intact. The pocket was closed utilizing 3-0 Vicryl for a total of 3 subcuticular sutures followed by Dermabond. The patient tolerated the procedure well without any acute complication. Air Kerma: 0mGy Procedure Note Tor Dubose MD - 06/12/2025 History: Right-sided port removal, immunotherapy completed. PROCEDURE: After obtaining informed consent, the patient was placed in the supineposition on the angiographic table. The right neck and chest was scrubbedand cleaned. The area was then prepped and draped using Chloroprepsolution. Maximal sterile barrier technique was performed. Alloperators performed a full hand/arm scrub. Moderate sedation was not utilized. Lidocaine with epinephrine was usedfor local anesthetic. A 15 blade was used to make a single incision over the existing scar line.Blunt dissection was utilized to separate the reservoir from thesurrounding fibrotic tissue. The port and catheter were removed togetherentirely intact. The pocket was closed utilizing 3-0 Vicryl for a total of 3 subcuticularsutures followed by Dermabond. The patient tolerated the procedure well without any acute complication. Air Kerma: 0mGy IMPRESSION: Successful right sided Port-A-Cath removal as described above. -------- FINAL REPORT -------- Dictated By: Alicia Isabel Dictated Date: 06/12/2025 11:48 ET Assigned Physician: Tor Dubose Reviewed and Electronically Signed By: Tor Dubose Signed Date: 06/12/2025 14:06 ET Workstation ID: [id number] Transcribed By: Self Edit Transcribed Date: 06/12/2025 11:52 ET Resident/PA/CNC MILLING MACHINIST: Alicia Isabel us Subramony Rosita OLIVEROS IMG IR PROCEDURES F inal Result * (ABNORMAL) Lipid panel with reflex to direct LDL (05/14/2025 8:17 AM EDT) Cholesterol 207(H) 0 - 200 mg/dL LAB CHEMISTRY METHOD 05/14/2025 9:45 AM EDT [facility] Triglycerides 97 0 - 150 mg/dL LAB CHEMISTRY METHOD 05/14/2025 9:45 AM EDT [facility] HDL 91 >=40 mg/dL LAB CHEMISTRY METHOD 05/14/2025 9:45 AM EDT [facility] LDL Calculated 97 0 - 100 mg/dL LAB CHEMISTRY METHOD 05/14/2025 9:45 AM EDT [facility] VLDL Cholesterol Donte 19.4 mg/dL LAB CHEMISTRY METHOD 05/14/2025 9:45 AM EDT [facility] Non HDL Chol. (LDL+VLDL) 116 <145 mg/dL LAB CHEMISTRY METHOD 05/14/2025 9:45 AM EDT [facility] Chol/HDL Ratio 2.3 0.0 - 4.4 LAB CHEMISTRY METHOD 05/14/2025 9:45 AM EDT [facility] Blood Venous blood specimen / Unknown Venipuncture / Unknown 05/14/2025 8:17 AM EDT 05/14/2025 8:28 AM EDT us Subramgracie Becker MD LAB BLOOD ORDERABLE S Final Result [facility] [address] [place] [address], * (ABNORMAL) Comprehensive metabolic panel (05/14/2025 8:17 AM EDT) Sodium 136 133 - 145 mmol/L LAB CHEMISTRY METHOD 05/14/2025 9:[address] [facility] Potassium 4.0 3.5 - 5.5 mmol/L LAB CHEMISTRY METHOD 05/14/2025 9:[address] [facility] Chloride 104 96 - 110 mmol/L LAB CHEMISTRY METHOD 05/14/2025 9:[address] [facility] CO2 26 21 - 32 mmol/L LAB CHEMISTRY METHOD 05/14/2025 9:[address] [facility] Anion Gap 6 3 - 11 LAB CHEMISTRY METHOD 05/14/2025 9:[address] [facility] Glucose 112(H) 70 - 100 mg/dL LAB CHEMISTRY METHOD 05/14/2025 9:[address] [facility] BUN 8 5 - 25 mg/dL LAB CHEMISTRY METHOD 05/14/2025 9:[address] [facility] Creatinine 0.79 0.70 - 1.30 mg/dL LAB CHEMISTRY METHOD 05/14/2025 9:[address] [facility] eGFR 94 >=60 mL/min/1. 73m2 LAB CHEMISTRY METHOD 05/14/2025 9:[address] [facility] Comment:Calculation based on the Chronic Kidney Disease Epidemiology Collaboration (CKD-EPI) equation refit without adjustment for race. BUN/Creatinine Ratio 10.1 LAB CHEMISTRY METHOD 05/14/2025 9:[address] [facility] Calcium 9.5 8.5 - 10.5 mg/dL LAB CHEMISTRY METHOD 05/14/2025 9:[address] [facility] AST (SGOT) 55(H) 10 - 42 unit/L LAB CHEMISTRY METHOD 05/14/2025 9:38 AM EDT [facility] ALT (SGPT) 53 10 - 60 unit/L LAB CHEMISTRY METHOD 05/14/2025 9:38 AM EDT [facility] Alkaline Phosphatase 132(H) 42 - 121 unit/L LAB CHEMISTRY METHOD 05/14/2025 9:38 AM EDT [facility] Total Protein 7.0 6.0 - 8.0 g/dL LAB CHEMISTRY METHOD 05/14/2025 9:38 AM EDT [facility] Albumin 4.4 3.2 - 5.0 g/dL LAB CHEMISTRY METHOD 05/14/2025 9:38 AM EDT [facility] Total Bilirubin 0.8 0.0 - 1.4 mg/dL LAB CHEMISTRY METHOD 05/14/2025 9:38 AM EDT [facility] Blood Venous blood specimen / Unknown Venipuncture / Unknown 05/14/2025 8:17 AM EDT 05/14/2025 8:28 AM EDT Татьяна Becker MD LAB BLOOD ORDERABLE S Final Result [facility] [address] [place] [address], from Last 3 Months or Most Recently Relevant to Health Maintenance Insurance [facility] Care Teams Reducer Relationship Specialty Start Date End Date Lyssa Reese MD [address] [address] PCP - General Oncology 10/15/24
--- OUTSIDE RECORDS SUMMARY | 2025-09-04 20:38 | XMS_ITS ---
Author Organization [facility] Address [address] [place] [address] Phone Care Team Providers Care Drafting Clerk Name Role Phone Kb Reese MD Primary Care Provider [phone] Active Problems Problem Noted Date Diagnosed Date Abnormal PET scan of lung 07/02/2022 Hypomagnesemia 08/20/2021 Autologous bone marrow trans plantation status ([facility] V24, [facility] V28) 03/05/2021 Muscle cramp 03/05/2021 Pancytopenia ([facility] V24, 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 Past Treatment and Therapy Plans No past plan information found. Lifetime Dose Tracking * Chemical Lifetime Dose Automatic Entry Manual Entr y Fluoro Time 0.2 minutes 0.2 minutes 0 minutes
--- OUTSIDE RECORDS SUMMARY | 2025-09-04 20:38 | XMS_ITS | Encounter Summary ---
Author Organization [facility] Address [address] [place] [address] Phone Care Team Providers Care Director Of Knowledge Management Name Role Phone Kb Reese MD Primary Care Provider [phone] Jeanne Burch Unavailable Jeanne_Quentin [email or web address] Татьяна Becker MD Unavailable [phone] Kelly Palumbo [facility] Unavailable [phone] Encounter Details Date Type Department Care Team (Late st Contact Info) Description 01/06/2021 Documentation Central Registration, [facility] Cancer [place] [address] [facility] [address] [facility], 2nd [place] [address] Mamta [email or web address] Social History Tobacco Use Types Packs/Day [...] on filedocumented in this encounter Care Teams Director Of Knowledge Management Relationship Specialty Start Date End Date Kb Reese MD [address] [place] [address] [place] [address] PCP - General 02/21/15 Jeanne Burch [address] [place] [address] Dr Ziegler Mar[place] [address] [email or web address] Television Agent 12/09/20 Татьяна Becker MD [address] [place] [phone] [email or web address] Internal Medicine 03/17/21 Kelly Palumbo, [address] [address] [email or web address] Miller Oncology 01/02/21 documented as of this encounter Additional Source Comments The information contained in this document represents components of the legal health record. It is not the complete legal health record.[facility]
--- OUTSIDE RECORDS SUMMARY | 2025-09-04 20:38 | XMS_ITS | Encounter Summary ---
Author Organization [facility] Address [address] [employer] [address] [place] [address] Phone Care Team Providers Care Patent Clerk Name Role Phone Kb Reese MD Primary Care Provider [phone] Jeanne Burch Unavailable Jeanne_Quentin [email or web address] Татьяна Becker MD Unavailable [phone] Kelly Palumbo [facility] Unavailable [phone] Encounter Details Date Type Department Care Team (Late st Contact Info) Description 01/22/2021 Documentation [facility], Division of Hematologic Oncology, [place] [facility] [place] [address] [facility], 7th [place] [address] Viry Giron RN [address] [place] [phone] [email or web address] Social History Tobacco Use Types Packs/Day [...] on filedocumented in this encounter Care Teams Patent Clerk Relationship Specialty Start Date End Date Kb Reese MD [address] [place] [address] Dr Ziegler [place] [address] PCP - General 02/21/15 Jeanne Burch [address] [place] [address] [place] [address] [email or web address] Guardian Family Member 12/09/20 Татьяна Becker MD [address] [place] [phone] [email or web address] Internal Medicine 03/17/21 Kelly Palumbo, [address] [address] [email or web address] U Senior Commissary Agent Oncology 01/02/21 documented as of this encounter Additional Source Comments The information contained in this document represents components of the legal health record. It is not the complete legal health record.[facility]
--- OUTSIDE RECORDS SUMMARY | 2025-09-04 20:39 | XMS_ITS | Clinical Summary ---
Author Organization [facility] Address [address] [place] [address] Phone Care Team Providers Care Orthotist Name Role Phone Kb Reese MD Primary Care Provider [phone] Jeanne Burch Unavailable Jeanne_Quentin [email or web address] Татьяна Becker MD Unavailable [phone] Kelly Palumbo [facility] Unavailable [phone] Allergies No known active allergies Medications sulfamethoxazole -trimethoprim (BACTRIM,SEPTRA) 400-80 mg per tablet Take 1 tablet (80 mg of trimethoprim total) by mouth daily. 90 tablet 4 1 Active acyclovir (ZOVIRAX) 400 MG tablet Take 1 tablet (400 mg total) by mouth 3 (three) times a day. 90 tablet 5 1 Active therapeutic multivitamin tablet Take 1 tablet by mouth daily. 30 tablet 5 1 Active folic acid (FOLVITE) 1 MG tablet Take 1 tablet (1 mg total) by mouth daily. 30 tablet 5 1 Active magnesium oxide (MAG-OX) 400 mg (241.3 mg elemental) tablet Take 1 tablet (400 mg total) by mouth 2 (two) times a day. 60 tablet 3 1 Active LORazepam (ATIVAN) 1 MG tablet Take 1 tablet (1 mg total) by mouth every 6 (six) hours as needed for anxiety (nausea, insomnia). 30 tablet 3 1 Active cholecalciferol (VITAMIN D3) 2,000 unit tablet Take 1 tablet (2,000 Units total) by mouth daily. 90 tablet 3 1 Active amLODIPine (NORVASC) 5 MG tablet Take 1 tablet (5 mg total) by mouth daily. 30 tablet 1 Active calcium carbonate 1,000 mg (400 mg elemental) Chew Take 1 tablet (1,000 mg total) by mouth every 4 (four) hours as needed. 0 1 Active docusate sodium (COLACE) 100 MG capsule Take 1 capsule (100 mg total) by mouth 2 (two) times a day as needed. 1 Active famotidine (PEPCID) 20 MG tablet Take 1 tablet (20 mg total) by mouth 2 (two) times a day. 1 Active polyethylene glycol (MIRALAX) 17 gram packet Take 17 g by mouth daily as needed. 1 Active polyvinyl alcohol-povidone , PF, (REFRESH CLASSIC) 1.4-0.6 % Dpet Place 1-2 drops into each eye 3 (three) times a day as needed (dry eyes). 1 Active senna (SENOKOT) 8.6 mg tablet Take 2 tablets by mouth nightly at bedtime as needed. 1 Active simethicone (MYLICON) 80 mg chewable tablet Take 1 tablet (80 mg total) by mouth every 6 (six) hours as needed. 1 Active Active Problems Problem Noted Date Diagnosed Date Abnormal EKG 02/15/2021 Assessment & Plan (02/23/2021 10:27 AM EDT): ACTIVE Admission EKG with sinus tachycardia, 1st degree AV block, incomplete RBBB, and QTc ~440s/460s. Checked again after Zyprexa Zydis on 02/14, in which multiple EKGs taken had varied QTc intervals (548, 436 and 541). Given incomplete RBBB, difficult to interpret. However, given resolution of nausea, stopped Zyprexa and made Zofran PRN. No cardiac symptoms to date. Tachycardia improved with IVF. -- Repeat EKG for QT monitoring if prolonging meds added Hyponatremia 02/12/2021 Assessment & Plan (02/23/2021 11:23 AM EDT): ACTIVE Serum sodium steadily dropping 02/10-02/12. Patient asymptomatic with no neurological deficits and euvolemic on exam with stable weights. 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 Home dyazide discontinued and replaced with Amlodipine. Initiated on NaCl tabs with free water restriction, discontinued 02/15 with improvement in Na levels. Na downtrended again 02/18. No recent diuretics or medications associated with SIADH. Recent poor PO intake and drinking only water due to nausea. Also with some lightheadedness improved with IVF. Likely in the setting of poor solute intake with only free water. Urine lytes/osm 02/18 consistent with hypovolemic hyponatremia. Na worsened with IVF, 129 on 02/21, repeat urine studies appears to be likely mixed picture SIADH again pre-renal (FENa 0.14%). Restarted salt tabs with improvement to 132 as of 02/22 and 02/23. -- Salt tabs 1G TID -- Encourage PO intake -- Monitor daily BMP Alternating constipation and diarrhea 02/10/2021 Assessment & Plan (02/23/2021 10:21 AM EDT): ACTIVE On 02/10 patient reported no BM x 4 days. No associated abdominal pain at that time. Shortly after developed diarrhea, likely due to recent Melphalan. Re-current constipation with abdominal gas pain 02/20, LUQ abdominal tenderness on exam with hyperactive bowel sounds. KUB showing gas-filled bowel loops without evidence of ileus or obstruction. Lactate negative. Pt moved bowels 5/7 PM with improvement of abdominal pain. Now with normal bowel movements. -- PRN Senna, Colace, Miralax -- PRN Simethicone for gas pain Nausea 02/09/2021 Assessment & Plan (02/23/2021 10:26 AM EDT): SECONDARY Intermittent nausea since 02/08. PRN Compazine added briefly to TP anti-emetics. No abdominal pain, cramping or reflux. Zydis daily added 02/10, stopped 02/15 with improvement to nausea and concern due to #abnormal EKG. -- Continue Zofran and Ativan PRN Rosacea 02/06/2021 Assessment & Plan (02/23/2021 10:29 AM EDT): SECONDARY Uses Metronidazole cream at home, continued on admission. Symptoms presently well-controlled. HTN (hypertension) 02/05/2021 Assessment & Plan (02/23/2021 10:28 AM EDT): SECONDARY Home regimen consists of triamterene-HCTZ (dyazide) 37.5-25 mg daily, continued on admission. With worsening #hyponatremia, which could be potentially exacerbated by dyazide, transitioned to Amlodipine on 02/12 with good effect. -- Continue Amlodipine 5 mg daily with hold parameters Pancytopenia 02/05/2021 Assessment & Plan (02/23/2021 2:54 PM EDT): SECONDARY Pancytopenic secondary to conditioning chemotherapy. Neutropenic from 02/15-02/22. TBO-Filgrastim 480 mcg SC daily started D+5, and continued until ANC >500 per TP. Last dose on 02/23. -- Will transfuse for Hct <21, plts <10 -- 1 unit PRBC's on 02/23 in anticipation of discharge on 02/24 Vitamin D deficiency 02/05/2021 Assessment & Plan (02/23/2021 10:30 AM EDT): SECONDARY Pre-transplant vitamin D level was 22. Given level <30, started dual therapy with Ergocalciferol 50,000 units weekly for 8 weeks, in addition to Cholecalciferol 2000 units daily on discharge. Plan to check level after 8 weeks. DLBCL (diffuse large B cell lymphoma) 02/05/2021 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 10/28/2020 Assessment & Plan (02/23/2021 2:53 PM EDT): ACTIVE Initially presented in Sep 2010 with R testicular swelling. Testicular US with enlarged R testicle, low echogenicity, with increased flow. Underwent R orchiectomy 10/26/10, with pathology confirming DLBCL. PET 11/09/10 showed disease burden in the pericaval nodes of the retroperitoneum. BMBx 11/10/10 without evidence of Lymphoma. MRI brain 11/24/10 without evidence of disease, and LP 11/27/10 negative as well. Received R-CHOP x6 cycles (with HD-MTX PPx x3 cycles) from Nov 2010-Mar 2011, with post-treatment PET showing no evidence of disease. Developed oral soft tissue swelling in Sep 2020; incisional biopsy of the area 09/22/20, which unfortunately confirmed relapsed DLBCL. MRI brain with lesions in the L masseter, L pterygoid, and L axilla; LP (with IT MTX) on 11/14/20 negative for disease involvement. Received 2 cycles of salvage RICE in Nov-Dec 2020 without complication; PET 12/25/20 with decreased uptake compared to prior scan. 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 Pt is Toxo positive. Conditioning with BEAM regimen: Carmustine (BCNU) 300 mg/m2 day -6, Etoposide 200 mg/m2 days -5 to -2, STEVE-C 200 mg/m2 q12h days - 5 to -2, Melphalan 140 mg/m2 d -1. Mild facial flushing and headache on 02/06 with BCNU infusion, improved with IVF and Benadryl. Used cryotherapy prior to Day -1 melphalan. On day 0 (02/12/21), 5.37 x 10*6 CD34 cells/kg were infused without incident. Primary Onc: Juanita Hart -- Daily MVI and FA -- PFTs were not done as part of pre-transplant work-up, primary oncologist aware, ok to proceed with transplant -- Discontinued PPx Levaquin on 02/23 given ANC >500 Malignant lymphoma 12/03/2010 Cancer Staging:Clinical stage from 10/07/2020:Stage IV(Diffuse large B-cell lymphoma) - Signed by Carlos Pinon MD, PhD on 02/03/2021 Overview (12/07/2014): Malignant lymphoma (clinical); Testicular DLBCL Gastroesophageal reflux disease 12/03/2010 Overview (12/07/2014): Gastroesophageal reflux disease Hypercholesterolemia 12/03/2010 Overview (12/07/2014): Hypercholesterolemia Erectile dysfunction 12/03/2010 Overview (12/07/2014): Erectile dysfunction H/O hematuria 12/03/2010 Overview (12/07/2014): H/O Hematuria; 2003 s/p negative ultrasound of kidney, bladder. s/p negative cystoscopy Smoker 12/03/2010 Overview (12/07/2014): Smoker Abscess 12/03/2010 Overview (12/07/2014): Abscess; 2008: near anus s/p incision and drainage. Hemorrhoids 12/03/2010 Overview (12/07/2014): Hemorrhoids Shoulder pain 12/03/2010 Overview (12/07/2014): Shoulder pain Resolved Problems Problem Noted Date Diagnosed Date Resolved Date Elevated alkaline phosphatase level 02/06/2021 02/06/2021 Assessment & Plan (02/21/2021 2:02 PM EDT): SECONDARY 291 on admission. Has been on the rise since 12/30/20. Likely due to recent Granix. Now resolving. Autologous donor of stem cells 01/29/2021 02/06/2021 Assessment & Plan (02/06/2021 7:08 AM EDT): Autologous Stem Cell Transplant Admission Note ? ADMIT DATE: 02/05/2021 Diagnosis: NHL [facility] Protocol #: BEAM/868 [facility] MD/fellow: Juanita Hart/ Carlos Pinon Referring MD: Dr. Татьяна Becker Phone #: [phone] Allergies: NKDA maintenance worker: Kelly Palumbo [facility] Nurse: Viry Giron [phone] ? WORK-UP Testing performed at [facility] on 12/30/2020; See EPIC record for reports. Deviation approval noted in EPIC ABO Type:A Positive RPR: Non-reactive CMV: Non-reactive TOXO: Positive EBV: IGG: Positive IGM: Negative VZV: Negative HBAG: Negative HCV: Negative HTLV: Negative HIV: Negative T-Spot: Negative ? Testing performed at [facility] on 01/01/2021; See EPIC record for reports CXR: DF good ECHO: [facility] 63% PFT'S: DF FEV1: Adj DLCO: EKG: DF Sinus Rhythm with 1st degree A-V block: aware Recent scan: 12/25/2020 ? DENTAL: SEE LMR note: Cleared from [facility] Dental Department on 12/25/2020. ? CENTRAL VENOUS ACCESS ?Trifusion Catheter: Placed at [facility] Interventional Radiology on his left side Confirmation: See IR Venous Access Placement note dated on 02/02/2021 ??Portacath: Right PAC tip over the proximal SVC ? ? MOBILIZATION REGIMEN Start Date: 01/30/2021 Agents: (Zarxio) Granix/ Mozobil Stem cell Collection Date: ? 02/02/2021 Total Cells Collected: 5.37 PBSC/kg ? ? PREPARATIVE REGIMEN Patient weight: 92.8 kg Patient height: 188 cm Chemotherapy- agents: BCNU/Etoposide/STEVE-C/Melphalan Day 0: 02/12/2021 ? Home care co: None. Supplies: [facility] provided aquaguard and line care instructions for the days between collection and admission. Trifusion catheters with sodium citrate instilled by pheresis RN to avoid need of daily saline flush until admission date. ? PRESCRIPTIONS Pharmacy: Ask patient upon admission Discharge Plan: Can follow-up locally for first two weeks upon discharge and then return to [facility] around his Day +30 to see either Sally Curtis NP or Dr. Juanita Hart. ? Note to Floor: ?Mr. Kb Li is a 70 y.o. 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 This remission is being consolidated with high dose chemotherapy and autologous stem cell transplantation. Kb Li was successfully mobilized and peripherally stem cell collected on 02/02/2021, and 02/03/2021. Kb Li is being admitted on TP 868/BEAM.? Kb Li has identified his very supportive , Kelly, to be his designated caregiver upon discharge from his autologous stem cell transplant Any questions call: Viry Giron portable trackman Nurse Navigator~ Lymphoma Autologous Stem Cell Transplant [phone] [facility] # [id number] Immunizations Immunization Administration Dates Next Due Pneumococcal polysaccharide PPSV23 03/02(Deferred: Patient Decision),01/20/2011(Deferred: Patient Decision) Family History Medical History Relation Comments Liver cancer Brother Diabetes Father Emphysema Father Cervical cancer Maternal Aunt Leukemia Maternal Grandfather Heart failure Mother Breast cancer Paternal Aunt Lung cancer Paternal Aunt Esophageal cancer Paternal Grandfather Lymphoma Sister 1 Breast cancer Sister 2 Relation Status Comments Brother Father Maternal Aunt Maternal Grandfather Mother Paternal Aunt Paternal Grandfather Sister 1 Sister 2 Social History Tobacco Use Types Packs/Day Years Used Date Smoking Tobacco: Former Smokeless Tobacco: Former Quit: 2010 Comments:Smoking History Pac ks/day: <=0.5 Alcohol Use Standard Drinks/Week Comments Yes 42 (1 standard drink = 0.6 oz pu re alcohol) last drink nov 30 Education Answer Date Recorded Are you interested in more education? Not on louann e 02/12/2023 Are you concerned about learning? Not on file 02/12/2023 No 02/12/2023 No 02/12/2023 Digital Access Answer Date Recorded No 03/13/2023 No 03/13/2023 No 03/13/2023 Reliable internet access at home? Not on file 03/13/2023 Device with a working camera? Not on file Sex and Gender Information Value Date Recorded Sex Assigned at Not on file Legal Sex Male 5:18 PM EST Gender Identity Not on file Sexual Orientation Not on file Last Filed Vital Signs Vital Sign Reading Time Taken Comments Blood Pressure 148/77 03/17/2021 1:45 PM EDT Pulse 92 03/17/2021 1:45 PM EDT Temperature 36.9 C (98.5 F) 03/17/2021 1:45 PM EDT Respiratory Rate 18 03/17/2021 1:45 PM EDT Oxygen Saturation 98% 03/17/2021 1:45 PM EDT Inhaled Oxygen Concentration 20.6% 02/02/2021 8 :20 AM EDT Weight 91 kg (200 lb 9.9 oz) 03/17/2021 1:45 PM EDT Height 181 cm (5' 11.26 ) 03/17/2021 1:45 PM EDT Body Mass Index 27.78 03/17/2021 1:45 PM EDT Plan of Treatment Health Maintenance Due Date Last Done Comments BLOOD PRESSURE 1952 DEPRESSION SCREENING 1964 SMOKING Hx and SMOKELESS TOBACCO SCREENING 1965 HEPATITIS C SCREENING 1970 PNEUMOCOCCAL VACCINES (50+ years) (1 of 2 - PCV) 1971 ZOSTER VACCINES (1 of 2) 1971 COLOGUARD 1997 COLONOSCOPY 1997 COLORECTAL CANCER SCREENING 1997 FIT TEST 1997 FOBT 1997 SIGMOIDOSCOPY 1997 VIRTUAL COLONOSCOPY 1997 RSV VACCINE (1 - Risk 50-74 years 1-dose series) 2002 ABDOMINAL AORTIC ANEURYSM (AAA) SCREENING 2017 INFLUENZA VACCINE (#1) 2025 , 07/04/2020, 07/06/2019, Additional history exists COVID-19 VACCINE ( season) 2025 07/02/2021, 06/11/2021 Adult Td,Tdap Booster 07/30/2026 07/30/2016 LIPID PANEL 05/14/2030 05/14/2025, 05/14/2025 HEPATITIS A VACCINES Aged Out 02/20/2019, 08/18/2018, 07/18/2018 No longer eligible based on patient's age to complete this topic HIB VACCINES Aged Out No longer eligi ble based on patient's age to complete this topic IPV VACCINES Aged Out No longer eligi ble based on patient's age to complete this topic MENINGOCOCCAL VACCINES (ACWY) Aged Out No longer eligible based on patient's age to complete this topic MENINGOCOCCAL VACCINES (B) Aged Out N o longer eligible based on patient's age to complete this topic Medical Devices Not on file Insurance [facility] POS EPO [employer] [facility] [place] [place] [address] [facility] POS EPO [employer] O POS EPO [employer] O POS EPO Advance Directives For more information, please contact: [phone] (9AM - 5PM [place]/[facility], Tuesday-Tuesday) Documents on File Type Date Recorded Patient Emts Expl anation Advance Directive - Non Epic LMR 12/03/2010 12:00 AM Healthcare Proxy 02/05/2021 HCP * Full Code (Latest Code Status on File) Date Activated Date Inactivated Comments 02/05/2021 7:42 PM Question Answer Comments Code Status Confirmed With: PatientFamily * Full Code Date Activated Date Inactivated Comments 02/02/2021 7:43 AM 02/05/2021 7:42 PM Question Answer Comments Code Status Confirmed With: Patient Care Teams Orthotist Relationship Specialty Start Date End Date Kb Reese MD [address] [place] [address] Dr [address] [place] [address] PCP - General 02/21/15 Jeanne Burch [address] [place] [address] Dr [address] [place] [address] [email or web address] Sales Consultant Residential Manager 12/09/20 Татьяна Becker MD [address] [place] [phone] [email or web address] 03/17/21 Kelly Palumbo, [address] [address] [email or web address] Paediatric Surgeon Oncology 01/02/21 Additional Source Comments The information contained in this document represents components of the legal health record. It is not the complete legal health record.[facility]
--- OUTSIDE RECORDS SUMMARY | 2025-09-04 20:39 | XMS_ITS ---
Author Organization [facility] Address [address] [place] [address] Phone Care Team Providers Care Cutter Down Name Role Phone Kb Reese MD Primary Care Provider [phone] Jeanne Burch Unavailable Jeanne_Quentin [email or web address] Татьяна Becker MD Unavailable [phone] Kelly Palumbo [facility] Unavailable [phone] Active Problems Problem Noted Date Diagnosed Date [...] H/O hematuria 12/03/2010 Overview (12/07/2014): H/O Hematuria; 2004 s/p negative ultrasound of kidney, bladder. s/p negative cystoscopy Smoker 12/03/2010 Overview (12/07/2014): Smoker Abscess 12/03/2010 Overview (12/07/2014): Abscess; 2008: near anus s/p incision and drainage. Hemorrhoids 12/03/2010 Overview (12/07/2014): Hemorrhoids Shoulder pain 12/03/2010 Overview (12/07/2014): Shoulder pain Current Treatment and Therapy Plans IP BMT 868 AUTO BEAM CYTARABINE/CARMUSTINE/MELPHALAN/ETOPOSIDE* Plan Start Date: 02/05/2021 Plan Provider:Juanita Hart MD Linked Problems 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 Treatment Medications carmustine (BiCNU) IVPB 1 mg /mL {glass container} Fr evac botcytarabine (STEVE-C) IVPB {100 mg/mL liquid vial}etoposide (VEPESID, TOPOSAR) infusion QS 1200 mL Bagmelphalan (EVOMELA) 2 mg/mL in NS IVPB Fr bag Past Treatment and Therapy Plans TREATMENT PLAN Plan Name Start Date Discontinue Date Treatment Medications Discontinue Reason Plan Provider Cycles Y-MDY-Ucatil mab(IV/SC)/I fosfamide/Ca rboplatin/Et oposide with ICE beginning day1 1 02/03/2021 CARBOplatin (PARAPLATIN) IVPB (by AUC) 270 mLetoposide (VEPESID, TOPOSAR)ifosfami de (IFEX) IVPBriTUXimab m. Entered in error Juanita Hart MD Treatment not started Resolved Problems Problem Noted Date Diagnosed Date [...] Note ? ADMIT DATE: 02/05/2021 Diagnosis: NHL [facility] Protocol #: BEAM/868 [facility] MD/fellow: Juanita Hart/ Carlos Pinon Referring MD: Dr. Татьяна Becker Phone #: [phone] Allergies: NKDA dust box worker: Kelly Palumbo [facility] Nurse: Viry Giron [phone] ? WORK-UP Testing performed at [facility] on 12/30/2020; See EPIC record for reports. MD Deviation approval noted in EPIC ABO Type:A Positive RPR: Non-reactive CMV: Non-reactive TOXO: Positive EBV: IGG: Positive IGM: Negative VZV: Negative HBAG: Negative HCV: Negative HTLV: Negative HIV: Negative T-Spot: Negative ? Testing performed at [facility] on 01/01/2021; See EPIC record for reports CXR: DFCI good ECHO: [facility] 63% PFT'S: DFCI FEV1: Adj DLCO: EKG: DF Sinus Rhythm with 1st degree A-V block: MD aware Recent scan: 12/25/2020 ? DENTAL: SEE LMR note: Cleared from [facility] Dental Department on 12/25/2020. ? CENTRAL VENOUS ACCESS ?Trifusion Catheter: Placed at [facility] Interventional Radiology on his left side Confirmation: [...] 02/12/2021 ? Home care co: None. Supplies: [facility] provided aquaguard and line care instructions for the days between collection and admission. Trifusion catheters with sodium citrate instilled by pheresis RN to avoid need of daily saline flush until admission date. ? PRESCRIPTIONS Pharmacy: Ask patient upon admission Discharge Plan: Can follow-up locally for first two weeks upon discharge and then return to [facility] around his Day +30 to see either [...] Li has identified his very supportive , Kathy, to be his designated caregiver upon discharge from his autologous stem cell transplant Any questions call: Viry Giron RN Oncology Nurse Navigator~ Lymphoma Autologous Stem Cell Transplant [phone] [facility] # [id number]
--- OUTSIDE RECORDS SUMMARY | 2025-09-04 20:39 | XMS_ITS ---
Author Name [facility] Organization Unknown Care Team Organization Name Specialty Phone Email Start Date End Da te [facility] Татьяна Becker Primary Care 09/28/2023 06/04/2024
--- OUTSIDE RECORDS SUMMARY | 2025-09-04 20:39 | XMS_ITS | Clinical Summary ---
Author Organization [facility] Address [address] [place] [address] Care Team Providers Care Boil Off Machine Operator Cloth Name Role Phone Kb Reese MD Primary Care Provider [phone] Allergies No known active allergies Medications Medication Sig Dispensed Refills Start Date End Date Status lidocaine-prilocaine (EMLA) cream Apply topically as needed. To [facility] area 1 hour prior to access [...] 96 05/30/2024 3:25 PM EDT Temperature 36.6 C (97.9 F) 05/30/2024 3:25 PM EDT Respiratory Rate 18 03/18/2022 9:21 AM EDT [...] Fall Risk Assessment 2017 Influenza Vaccine (#1) 2025 Hepatitis B Vaccines Aged Out No long er eligible based on patient's age to complete this topic RSV Ped < 20 months Aged Out No longe r eligible based on patient's age to complete this topic Care Teams Boil Off Machine Operator Cloth Relationship Specialty Start Date End Date Kb Reese MD [address] [address] [place] [phone] PCP - General Oncology 11/04/20
--- OUTSIDE RECORDS SUMMARY | 2025-09-04 20:39 | XMS_ITS | Encounter Summary ---
Author Organization [facility] Address [address] [place] [address] Phone Care Team Providers Care Stockroom Helper Name Role Phone Kb Reese MD Primary Care Provider [phone] Jeanne Burch Unavailable [email or web address] Татьяна Becker MD Unavailable [phone] Kelly Palumbo [facility] Unavailable [phone] Encounter Details Date Type Department Care Team (Late st Contact Info) Description 02/23/2021 Procedure Pass [facility] Angio Interventional Radiology [address] [place] [id number] Social History Tobacco Use Types Packs/Day Years Used Date Smoking Tobacco: Former Smokeless Tobacco: Former Quit: 2010 Comments:Smoking History Pac ks/day: <=0.5 Alcohol Use Standard Drinks/Week Comments Yes 44 (1 standard drink = 0.6 oz pu re alcohol) last drink nov 30 Sex and Gender Information Value Date Recorded Sex Assigned at Not on file Legal Sex Male 5:18 PM EST Gender Identity Not on file Sexual Orientation Not on file documented as of this encounter Plan of Treatment Not on file documented as of this encounter Visit Diagnoses Not on filedocumented in this encounter Care Teams Stockroom Helper Relationship Specialty Start Date End Date Kb Reese MD [address] [place] [address] [place] [address] PCP - General 02/21/15 Jeanne Burch [address] [place] [address] [place] [address] [email or web address] Electric Deicer Inspector 12/09/20 Татьяна Bceker MD [address] [place] [phone] [email or web address] 03/17/21 Kelly Palumbo, [address] [address] [email or web address] Parachute Cushion Installer Oncology 01/02/21 documented as of this encounter Additional Source Comments The information contained in this document represents components of the legal health record. It is not the complete legal health record.[facility]
== END ==
LOC: HO.CARD 10:35
PROVIDERS: PCP Internal Medicine Medical Oncology; Visit Provider Internal Medicine Medical Oncology
DX: I49.9 Cardiac arrhythmia, unspecified (principal)
CPT/HCPCS: 93005

== ENCOUNTER → 2025-09-04 10:38 | Outpatient (BNV) | payer MEDICARE, SELFPAY | PROVIDERS: PCP Internal Medicine Medical Oncology; Visit Provider Internal Medicine | DX: I44.0 Atrioventricular block, first degree (principal); I49.1 Atrial premature depolarization; I45.10 Unspecified right bundle-branch block | CPT/HCPCS: 93010 ==